=== PATIENT | female | born 1980 | race African-American/Black ===

== ENCOUNTER 2017-05-07 10:19 | Inpatient (IN) | payer OTHER ==
[2017-05-07 11:53] VITALS: BMI 35.2
--- NOTE | 2017-05-07 13:47 | HP ---
CIWA Score - CIWA Score Nausea/Vomitin-No Nausea/No Vomiting Muscle Tremors: 4-Moderate,w/Arms Extend Anxiety: 3 Agitation: 4-Moderately Restless Paroxysmal Sweats: 3 Orientation: 0-Oriented Tacttile Disturbances: 0-None Auditory Disturbances: 0-None Visual Disturbances: 0-None Headache: 1-Very Mild CIWA-Ar Total Score: 15 Admission ROS BHS - HPI Chief Complaint: I need help Allergies/Adverse Reactions: Allergies Allergy/AdvReac Type Severity Reaction Status Date / Time penicillin G Allergy Severe Difficulty Verified 05/07/17 12:55 Breathing History of Present Illness: pt is a 37yr old female with a history of alcohol dependence seeking detox for treatment. Exam Limitations: No Limitations - Ebola screening Have you traveled outside of the country in the last 21 days: No Have you had contact with anyone from an Ebola affected area: No Have you been sick,other than usual withdrawal symptoms: No Do you have a fever: No - Review of Systems Constitutional: Chills, Diaphoresis, Night Sweats, Changes in sleep EENT: reports: No Symptoms Reported Respiratory: reports: No Symptoms reported Cardiac: reports: No Symptoms Reported GI: reports: Constipated, Poor Appetite, Rectal Bleeding, Indigestion : reports: No Symptoms Reported Musculoskeletal: reports: Back Pain Integumentary: reports: Flushing, Sweating Neuro: reports: Headache, Seizure (seizure d/t her ), Tingling, Tremors Endocrine: reports: Excessive Sweating, Flushing, Intolerance to Cold, Intolerance to Heat Hematology: reports: No Symptoms Reported Psychiatric: reports: Mood/Affect Appropiate, Orientated x3, Agitated, Anxious Other Systems: Reviewed and Negative Patient History - Patient Medical History Hx Anemia: No Hx Asthma: Yes Hx Chronic Obstructive Pulmonary Disease (COPD): No Hx Cancer: Yes (breast CA in remission a year ago) Hx Cardiac Disorders: Yes (CHF) Hx Congestive Heart Failure: No Hx Hypertension: Yes Hx Hypercholesterolemia: No Hx Pacemaker: No HX Cerebrovascular Accident: No Hx Seizures: No Hx Diabetes: No Hx Gastrointestinal Disorders: No Hx Liver Disease: No Hx Genitourinary Disorders: No Hx Sexually Transmitted Disorders: No Hx Renal Disease (ESRD): No Hx Thyroid Disease: No Hx Human Immunodeficiency Virus (HIV): No (negative) Hx Hepatitis C: No (negative) Hx Depression: No Hx Suicide Attempt: No Hx Bipolar Disorder: No Hx Schizophrenia: No - Patient Surgical History Past Surgical History: Yes Hx Neurologic Surgery: No Hx Cataract Extraction: No Hx Cardiac Surgery: No Hx Lung Surgery: No Hx Breast Surgery: No Hx Breast Biopsy: No Hx Abdominal Surgery: Yes (gastric bypass in 2014/umbilical hernia repair in 2005) Hx Appendectomy: No Hx Cholecystectomy: No Hx Genitourinary Surgery: No Hx Section: Yes (x2) Hx Orthopedic Surgery: No Anesthesia Reaction: No - PPD History Previous Implant?: Yes Documented Results: Negative w/o proof PPD to be Administered?: Yes - Reproductive History Patient is a Female of Child Bearing Age (11 -55 yrs old): Yes Last Menstrual Period: 08/21/13 Patient : No - Smoking Cessation Smoking history: Current every day smoker Have you smoked in the past 12 months: No Aproximately how many cigarettes per day: 3 Hx Chewing Tobacco Use: No Initiated information on smoking cessation: Yes 'Breaking Loose' booklet given: 05/07/17 - Substance & Tx. History Hx Alcohol Use: Yes Hx Substance Use: Yes Substance Use Type: Alcohol, Cocaine, Marijuana Hx Substance Use Treatment: No - Substances Abused Cocaine Route: Inhalation Frequency: Daily Amount used: 1 gm. Age of first use: 37 Date of Last Use: 05/06/17 Alcohol-beer Route: Oral Frequency: Daily Amount used: 4-5 6 pks. Age of first use: 24 Date of Last Use: 05/07/17 Marijuana Route: Smoking Frequency: 1-2 times per week Amount used: 2 joints Age of first use: 36 Date of Last Use: 05/06/17 Family Disease History - Family Disease History Family History: Denies Admission Physical Exam [facility] - Vital Signs Vital Signs: Vital Signs - 24 hr 05/07/17 11:50 Temperature 96 F L Pulse Rate 99 H Respiratory 20 Rate Blood Pressure 115/82 - Physical General Appearance: Yes: Moderate Distress, Obese, Tremorous, Irritable, Sweating, Anxious HEENTM: Yes: Normal Voice Respiratory: Yes: Lungs Clear, Normal Breath Sounds, No Respiratory Distress Neck: Yes: No masses,lesions,Nodules Breast: Yes: Within Normal Limits Cardiology: Yes: Regular Rhythm, Regular Rate, S1, S2 Abdominal: Yes: Normal Bowel Sounds, Non Tender Genitourinary: Yes: Within Normal Limits Back: Yes: Normal Inspection Musculoskeletal: Yes: Back pain Extremities: Yes: Normal Inspection, Tremors Neurological: Yes: Fully Oriented, Alert, Normal Response Integumentary: Yes: Normal Color, Diaphoresis Lymphatic: Yes: Within Normal Limits - Diagnostic (1) Alcohol dependence with uncomplicated withdrawal Current Visit: Yes Status: Chronic (2) Asthma Current Visit: Yes Status: Chronic Qualifiers: Asthma severity: mild intermittent (3) Cannabis dependence Current Visit: Yes Status: Chronic (4) Cocaine dependence Current Visit: Yes Status: Chronic Qualifiers: Substance use status: uncomplicated Qualified Code(s): F14.20 - Cocaine dependence, uncomplicated (5) Nicotine dependence Current Visit: Yes Status: Chronic Qualifiers: Nicotine product type: cigarettes Substance use status: uncomplicated Qualified Code(s): F17.210 - Nicotine dependence, cigarettes, uncomplicated (6) Obesity (BMI 30.0-34.9) Current Visit: Yes Status: Chronic (7) CHF (congestive heart failure) Current Visit: Yes Status: Chronic Qualifiers: Congestive heart failure chronicity: chronic Cleared for Admission [facility] - Detox or Rehab [facility] Level of Care: Medically Managed Detox Regimen/Protocol: Librium [facility] Breath Alcohol Content Breath Alcohol Content: 0.124 Urine Pregancy Test - Result Urine Test Results: Negative- NO Line Present Urine Drug Screen - Results Drug Screen Negative: No Urine Drug Screen Results: OZZIE-Cocaine
[2017-05-07] MEDS ORDERED: ACETAMINOPHEN 325 MG TABLET (FP) PO PRN (13:51)
[2017-05-07] MEDS ORDERED: MAGNESIUM CITRATE 300 ML BOTTLE PO PRN (13:51)
[2017-05-07] MEDS ORDERED: chlordiazePOXIDE HCL 25 MG CAPSULE PO PRN (13:51)
[2017-05-07] MEDS ORDERED: LOPERAMIDE HCL 2 MG CAPSULE PO PRN (13:51)
[2017-05-07] MEDS ORDERED: MAGNESIUM HYDROX 2400MG/30ML ORAL SUSPENSION 30 ML CUP PO PRN (13:51)
[2017-05-07] MEDS ORDERED: P-EPHED 60MG/TRIPROLIDI 2.5MG TABLET PO PRN (13:51)
[2017-05-07] MEDS ORDERED: MENTHOL/PHENOL 1 EACH UD MM PRN (13:51)
[2017-05-07] MEDS ORDERED: guaiFENesin/D-METHORPHAN HB 10 ML UNIT-DOSE CUPS PO PRN (13:51)
[2017-05-07] MEDS ORDERED: diphenhydrAMINE HCL 50 MG CAPSULE PO PRN (13:51)
[2017-05-07] MEDS ORDERED: MAG HYDROX/AL HYDROX/SIMETH 30 ML UNIT-DOSE CUP PO PRN (13:51)
[2017-05-07] MEDS ORDERED: chlordiazePOXIDE HCL 25 MG CAPSULE PO ONE (14:30)
[2017-05-07] MEDS: chlordiazePOXIDE HCL 25 MG CAPSULE PO SCH ×2 (17:22→22:10)
[2017-05-07 17:27] LABS: MCHC 29.7 g/dl (32.0-36.0); MEAN CELL VOLUME 64.4 fl (80-96); MEAN PLT VOLUME 8.7 fl (7.5-11.1); PLATELET COUNT 338 K/MM3 (134-434); RDW 21.7 % (11.6-15.6); WHITE BLOOD COUNT 13.8 K/mm3 (4.0-10.0)
[2017-05-07 17:28] LABS: URINE APPEARANCE CLEAR; URINE BILIRUBIN NEGATIVE (NEGATIVE); URINE BLOOD NEGATIVE (NEGATIVE); URINE COLOR COLORLESS; URINE GLUCOSE (UA) NEGATIVE (NEGATIVE); URINE KETONE NEGATIVE (NEGATIVE); URINE LEUK ESTERASE NEGATIVE (NEGATIVE); URINE NITRITE NEGATIVE (NEGATIVE); URINE PROTEIN NEGATIVE (NEGATIVE); URINE UROBILINOGEN NEGATIVE mg/dL (0.2-1.0)
[2017-05-07 17:29] LABS: MCH 19.2 pg (25.7-33.7)
[2017-05-07] MEDS: IBUPROFEN 400 MG TABLET (FP) PO PRN (17:29)
[2017-05-07 17:59] LABS: ALBUMIN 3.7 g/dl (3.4-5.0); ALK PHOS 76 U/L (45-117); ANION GAP 9 (8-16); BILIRUBIN,TOTAL 0.5 mg/dL (0.2-1.0); CALCIUM 8.7 mg/dL (8.5-10.1); CO2 24 mmol/L (21-32); CREATININE 0.9 mg/dL (0.55-1.02); GLUCOSE,RANDOM 65 mg/dL (74-106); SGOT/AST 32 U/L (15-37); SGPT/ALT 27 U/L (12-78); TOT PROT 7.8 g/dl (6.4-8.2)
[2017-05-07] MEDS: NICOTINE POLACRILEX 4 MG GUM BC PRN (18:30)
[2017-05-07 21:41] LABS: ANISOCYTOSIS 1+; HYPOCHROMIA 3+; MICROCYTOSIS 2+; PLATELET ESTIMATE ADEQUATE (NORMAL); POLYCHROMASIA 1+
[2017-05-07] MEDS: THIAMINE HCL 100 MG TABLET (FP) PO SCH (22:09)
[2017-05-08] MEDS: chlordiazePOXIDE HCL 25 MG CAPSULE PO SCH ×4 (05:55→22:09)
--- NOTE | 2017-05-08 09:44 | PN ---
S CIWA - CIWA Score Nausea/Vomitin-No Nausea/No Vomiting Muscle Tremors: 4-Moderate,w/Arms Extend Anxiety: 3 Agitation: 4-Moderately Restless Paroxysmal Sweats: 3 Orientation: 0-Oriented Tacttile Disturbances: 0-None Auditory Disturbances: 0-None Visual Disturbances: 0-None Headache: 0-None Present CIWA-Ar Total Score: 14 BHS Progress Note (SOAP) Subjective: agitation sweats irritable interrupted sleep feet swelling Objective: 05/08/17 09:40 Vital Signs Temperature 97.1 F L 05/08/17 06:43 Pulse Rate 70 05/08/17 06:43 Respiratory Rate 18 05/08/17 06:43 Blood Pressure 131/61 05/08/17 06:43 O2 Sat by Pulse Oximetry (%) Laboratory Tests 05/07/17 05/07/17 05/07/17 13:00 13:00 15:00 WBC 13.8 H D RBC 3.92 Hgb 7.5 L Hct 25.3 L MCV 64.4 L MCH 19.2 L MCHC 29.7 L RDW 21.7 H Plt Count 338 D MPV 8.7 Differential Comment Slide scanned Hypochromia 3+ Platelet Estimate Adequate Polychromasia 1+ Anisocytosis 1+ Microcytosis 2+ Sodium 141 Potassium 4.1 Chloride 108 H Carbon Dioxide 24 Anion Gap 9 BUN 7 Creatinine 0.9 Creat Clearance w eGFR > 60 Random Glucose 65 L D Calcium 8.7 Total Bilirubin 0.5 D AST 32 D ALT 27 D Alkaline Phosphatase 76 Total Protein 7.8 Albumin 3.7 Urine Color Colorless Urine Appearance Clear Urine pH 6.0 Ur Specific [place] <= 1.005 Urine Protein Negative Urine Glucose (UA) Negative Urine Ketones Negative Urine Blood Negative Urine Nitrite Negative Urine Bilirubin Negative Urine Urobilinogen Negative Ur Leukocyte Esterase Negative low H:H; iron supplement ordered TID awake/alert ambulating no acute distress Assessment: 05/08/17 09:42 withdrawal sx Plan: continue detox lasix 40mg bid encouraged to keep legs elevated monitor fluid intake
[2017-05-08] MEDS ORDERED: FERROUS SO4 325 MG TABLET (FP) PO SCH (10:00)
--- NOTE | 2017-05-08 10:12 | CONSULT ---
[facility] Psychiatric Consult - Data Date of interview: 05/08/17 Admission source: [facility] Identifying data: [place] 37 years old female with no psychiatric hospitalization history, intoxicated with: Alcohol, Cannabis, Cocaine and Nicotine Substance Abuse History: Smoking history: Current every day smoker. Have you smoked in the past 12 months: No. Aproximately how many cigarettes per day: 3. Hx Chewing Tobacco Use: No. Initiated information on smoking cessation: Yes. 'Breaking Loose' booklet given: 05/07/17. - Substance & Tx. History. Hx Alcohol Use: Yes. Hx Substance Use: Yes. Substance Use Type: Alcohol, Cocaine , Marijuana. Hx Substance Use Treatment: No. - Substances Abused. Cocaine. Route: Inhalation. Frequency: Daily. Amount used: 1 gm. Age of first use: 37. Date of Last Use: 05/06/17. Alcohol-beer. Route: Oral. Frequency: Daily. Amount used: 4-5 6 pks. Age of first use: 24. Date of Last Use: 05/07/17. Marijuana. Route: Smoking. Frequency: 1-2 times per week. Amount used: 2 joints. Age of first use: 36. Date of Last Use: 05/06/17 Medical History: CHF History, Obesity Psychiatric History: -Patient reports ijnsomnia, reports taking prior to admsision: Ambien 10mg po qhs Physical/Sexual Abuse/Trauma History: Denies Additional Comment: Ambien 10mg po qhs Mental Status Exam - Mental Status Exam Alert and Oriented to: Person Cognitive Function: Fair Patient Appearance: Unkempt Mood: Anxious Affect: Mood Congruent Patient Behavior: Cooperative Speech Pattern: Delayed Voice Loudness: Mildly Soft/Quiet Thought Process: Goal Oriented Thought Disorder: Being Controlled Hallucinations: Denies Suicidal Ideation: Denies Homicidal Ideation: Denies Insight/Judgement: Fair Sleep: Difficulty falling asleep Appetite: Fair Muscle strength/Tone: Mild Hypotonicity Gait/Station: Shuffling Additional Comments: Ambien 10mg po qhs Psychiatric Findings - Problem List ([place] 1, 2,3) (1) Alcohol dependence with uncomplicated withdrawal Current Visit: Yes Status: Chronic (2) Cannabis dependence Current Visit: Yes Status: Chronic (3) Cocaine dependence Current Visit: Yes Status: Chronic Qualifiers: Substance use status: uncomplicated Qualified Code(s): F14.20 - Cocaine dependence, uncomplicated (4) Nicotine dependence Current Visit: Yes Status: Chronic Qualifiers: Nicotine product type: cigarettes Substance use status: uncomplicated Qualified Code(s): F17.210 - Nicotine dependence, cigarettes, uncomplicated (5) Drug-induced mood disorder Current Visit: Yes Status: Suspected - Initial Treatment Plan Initial Treatment Plan: Ambien 10mg po qhs
[2017-05-08] MEDS: PRENATAL VITAMINS W/ FOLIC ACID TABLET (FP) PO SCH (10:24)
[2017-05-08] MEDS: FUROSEMIDE 40 MG TABLET (FP) PO SCH ×2 (10:26→22:08)
[2017-05-08] MEDS: BACITRACIN 0.9 GM PACKET TP SCH ×2 (10:26→22:08)
[2017-05-08] MEDS: DOCUSATE SODIUM 100 MG CAPSULE (FP) PO SCH ×2 (10:26→22:08)
[2017-05-08] MEDS: NICOTINE 14 MG/24 HOURS TOPICAL PATCH TD SCH (10:27)
--- NOTE | 2017-05-08 11:06 | PN ---
S CIWA - CIWA Score Nausea/Vomitin-Mild Nausea/No Vomiting Muscle Tremors: 4-Moderate,w/Arms Extend Anxiety: 3 Agitation: 4-Moderately Restless Paroxysmal Sweats: 3 Orientation: 0-Oriented Tacttile Disturbances: 0-None Auditory Disturbances: 0-None Visual Disturbances: 0-None Headache: 1-Very Mild CIWA-Ar Total Score: 16 BHS Progress Note (SOAP) Subjective: nausea sweats interrupted sleep agitation body aches Objective: 05/08/17 11:06 Vital Signs Temperature 97.7 F 05/08/17 10:14 Pulse Rate 66 05/08/17 10:14 Respiratory Rate 20 05/08/17 10:14 Blood Pressure 110/66 05/08/17 10:14 O2 Sat by Pulse Oximetry (%) Laboratory Tests 05/07/17 05/07/17 05/07/17 13:00 13:00 15:00 WBC 13.8 H D RBC 3.92 Hgb 7.5 L Hct 25.3 L MCV 64.4 L MCH 19.2 L MCHC 29.7 L RDW 21.7 H Plt Count 338 D MPV 8.7 Differential Comment Slide scanned Hypochromia 3+ Platelet Estimate Adequate Polychromasia 1+ Anisocytosis 1+ Microcytosis 2+ Sodium 141 Potassium 4.1 Chloride 108 H Carbon Dioxide 24 Anion Gap 9 BUN 7 Creatinine 0.9 Creat Clearance w eGFR > 60 Random Glucose 65 L D Calcium 8.7 Total Bilirubin 0.5 D AST 32 D ALT 27 D Alkaline Phosphatase 76 Total Protein 7.8 Albumin 3.7 Urine Color Colorless Urine Appearance Clear Urine pH 6.0 Ur Specific [place] <= 1.005 Urine Protein Negative Urine Glucose (UA) Negative Urine Ketones Negative Urine Blood Negative Urine Nitrite Negative Urine Bilirubin Negative Urine Urobilinogen Negative Ur Leukocyte Esterase Negative low
[2017-05-08] MEDS: NICOTINE POLACRILEX 4 MG GUM BC PRN (12:35)
--- NOTE | 2017-05-08 12:43 | EKG ---
Test Reason : Blood Pressure : / mmHG Vent. Rate : 081 BPM Atrial Rate : 081 BPM P-R Int : 142 ms QRS Dur : 110 ms QT Int : 374 ms P-R-T Axes : 048 013 030 degrees QTc Int : 434 ms NORMAL SINUS RHYTHM INCOMPLETE RIGHT BUNDLE BRANCH BLOCK BORDERLINE ECG WHEN COMPARED WITH ECG OF 08-OCT-2015 10:51, NO SIGNIFICANT CHANGE WAS FOUND Confirmed by ERASTO ZENDEJAS MD ([id number]) on 05/08/2017 12:42:54 PM Referred By: Omari Chowdhury Confirmed By:ERASTO ZENDEJAS MD
[2017-05-08] MEDS: BUDESONIDE/FORMETEROL FUMARATE 160/4.5 mcg INHALER IH SCH ×2 (13:59→22:09)
[2017-05-08] MEDS: IBUPROFEN 400 MG TABLET (FP) PO PRN ×2 (14:09→22:12)
[2017-05-08] MEDS ORDERED: chlordiazePOXIDE HCL 25 MG CAPSULE PO SCH (17:00)
[2017-05-08] MEDS: FERROUS SO4 325 MG TABLET (FP) PO SCH (17:25)
[2017-05-08] MEDS: chlordiazePOXIDE HCL 25 MG CAPSULE PO PRN (17:32)
[2017-05-08] MEDS: NICOTINE POLACRILEX 2 MG GUM BUC PRN (18:03)
[2017-05-08] MEDS: ALBUTEROL SO4 6.7 GM HFA INHALER IH PRN (21:11)
[2017-05-08] MEDS: THIAMINE HCL 100 MG TABLET (FP) PO SCH (22:09)
[2017-05-09] MEDS: hydrOXYzine PAMOATE 50 MG CAPSULE (FP) PO PRN ×3 (03:21→20:34)
[2017-05-09] MEDS: chlordiazePOXIDE HCL 25 MG CAPSULE PO SCH ×2 (06:42→11:35)
[2017-05-09] MEDS: IBUPROFEN 400 MG TABLET (FP) PO PRN ×2 (06:44→20:34)
[2017-05-09] MEDS: FERROUS SO4 325 MG TABLET (FP) PO SCH ×2 (07:00→16:49)
[2017-05-09] MEDS: chlordiazePOXIDE HCL 25 MG CAPSULE PO PRN (09:47)
[2017-05-09] MEDS: FUROSEMIDE 40 MG TABLET (FP) PO SCH ×2 (09:48→22:13)
[2017-05-09] MEDS: BUDESONIDE/FORMETEROL FUMARATE 160/4.5 mcg INHALER IH SCH ×2 (09:48→22:14)
[2017-05-09] MEDS: DOCUSATE SODIUM 100 MG CAPSULE (FP) PO SCH ×2 (09:48→22:13)
[2017-05-09] MEDS: PRENATAL VITAMINS W/ FOLIC ACID TABLET (FP) PO SCH (09:48)
[2017-05-09] MEDS: BACITRACIN 0.9 GM PACKET TP SCH ×2 (09:51→22:13)
[2017-05-09] MEDS: NICOTINE POLACRILEX 2 MG GUM BUC PRN ×3 (09:52→20:36)
[2017-05-09] MEDS: NICOTINE 14 MG/24 HOURS TOPICAL PATCH TD SCH (09:52)
--- NOTE | 2017-05-09 10:37 | PN ---
BHS Progress Note (SOAP) Subjective: teary eyes sweats interrupted sleep Objective: 05/09/17 10:36 Vital Signs Temperature 102 F H 05/08/17 22:00 Pulse Rate 81 05/09/17 09:40 Respiratory Rate 20 05/09/17 09:40 Blood Pressure 110/72 05/09/17 09:40 O2 Sat by Pulse Oximetry (%) awake/alert ambulating no acute distress Assessment: 05/09/17 10:36 withdrawal sx Plan: continue detox increase fluids
[2017-05-09] MEDS: chlordiazePOXIDE 5 MG CAPSULE PO SCH ×2 (16:49→22:13)
[2017-05-09] MEDS ORDERED: chlordiazePOXIDE 5 MG CAPSULE PO SCH (17:00)
[2017-05-09] MEDS: ALBUTEROL SO4 6.7 GM HFA INHALER IH PRN (22:14)
[2017-05-09] MEDS: THIAMINE HCL 100 MG TABLET (FP) PO SCH (22:14)
[2017-05-10] MEDS: IBUPROFEN 400 MG TABLET (FP) PO PRN (03:19)
[2017-05-10] MEDS: hydrOXYzine PAMOATE 50 MG CAPSULE (FP) PO PRN (03:19)
[2017-05-10] MEDS ORDERED: CYCLOBENZAPRINE HCL 10 MG TABLET (FP) PO PRN (03:23)
[2017-05-10] MEDS: chlordiazePOXIDE 5 MG CAPSULE PO SCH ×2 (07:53→11:06)
[2017-05-10] MEDS: FERROUS SO4 325 MG TABLET (FP) PO SCH (08:26)
--- NOTE | 2017-05-10 09:08 | DS ---
[facility] Detox Discharge Summary Admission Date: 05/07/17 Discharge Date: 05/10/17 - History Present History: Alcohol Dependence, Cannabis Dependence, Cocaine Dependence - Physical Exam Results Vital Signs: Vital Signs Temperature 97.5 F L 05/10/17 06:00 Pulse Rate 75 05/10/17 06:00 Respiratory Rate 18 05/10/17 06:00 Blood Pressure 102/42 05/10/17 06:00 O2 Sat by Pulse Oximetry (%) - Treatment Hospital Course: Detox Protocol Followed, Detoxed Safely, Responded well, Discharged Condition Good, Rehab Referral Accepted - Medication Discharge Medications: Ambulatory Orders Docusate Sodium [Colace -] 100 mg PO BID 11/30/14 Ferrous Sulfate [Feosol] 325 mg PO BID 11/30/14 Furosemide [Lasix -] 40 mg PO BID 11/30/14 Fluticasone/Salmeterol [Advair 250-50 Diskus] 1 each IH BID 02/22/16 Zolpidem Tartrate [Ambien] 10 mg PO HS 02/22/16 Albuterol Sulfate Inhaler - [Ventolin Hfa Inhaler -] 2 inh PO Q4H PRN 05/07/17 - Diagnosis (1) Alcohol dependence with uncomplicated withdrawal Current Visit: Yes Status: Chronic (2) Asthma Current Visit: Yes Status: Chronic Qualifiers: Asthma severity: mild intermittent (3) Cannabis dependence Current Visit: Yes Status: Chronic (4) Cocaine dependence Current Visit: Yes Status: Chronic Qualifiers: Substance use status: uncomplicated Qualified Code(s): F14.20 - Cocaine dependence, uncomplicated (5) Nicotine dependence Current Visit: Yes Status: Chronic Qualifiers: Nicotine product type: cigarettes Substance use status: uncomplicated Qualified Code(s): F17.210 - Nicotine dependence, cigarettes, uncomplicated (6) Obesity (BMI 30.0-34.9) Current Visit: Yes Status: Chronic (7) CHF (congestive heart failure) Current Visit: Yes Status: Chronic Qualifiers: Congestive heart failure chronicity: chronic (8) H/O gastric bypass Current Visit: No Status: Chronic - AMA Did Patient Leave Against Medical Advice: No (pt states will return for rehab for further tx. going to court today)
[2017-05-10 10:39] VITALS: BP 117/60; PULSE 83; TEMP 97.2
[2017-05-10] MEDS: BUDESONIDE/FORMETEROL FUMARATE 160/4.5 mcg INHALER IH SCH (11:05)
[2017-05-10] MEDS: BACITRACIN 0.9 GM PACKET TP SCH (11:05)
[2017-05-10] MEDS: NICOTINE 14 MG/24 HOURS TOPICAL PATCH TD SCH (11:05)
[2017-05-10] MEDS: DOCUSATE SODIUM 100 MG CAPSULE (FP) PO SCH (11:05)
[2017-05-10] MEDS: PRENATAL VITAMINS W/ FOLIC ACID TABLET (FP) PO SCH (11:05)
[2017-05-10] MEDS: FUROSEMIDE 40 MG TABLET (FP) PO SCH (11:05)
[2017-05-10] MEDS ORDERED: chlordiazePOXIDE HCL 10 MG CAPSULE PO SCH ×2 (17:00)
== END 2017-05-10 10:03 | disposition home or self-care (01) | DRG 774 ==
LOC: YASAS 10:19 → Y6N 14:01
PROVIDERS: ADMIT Internal Medicine Addiction Medicine; ATTEND Internal Medicine Addiction Medicine
PROC: HZ2ZZZZ Detoxification Services for Substance Abuse Treatment (ICD-10-PCS; principal; 2017-05-10)
DX: F10.230 Alcohol dependence with withdrawal, uncomplicated (principal); F14.20 Cocaine dependence, uncomplicated; F12.20 Cannabis dependence, uncomplicated; F17.210 Nicotine dependence, cigarettes, uncomplicated; F19.24 Other psychoactive substance dependence with psychoactive substance-induced mood disorder; I50.9 Heart failure, unspecified; I10 Essential (primary) hypertension; J45.909 Unspecified asthma, uncomplicated; E66.09 Other obesity due to excess calories; Z68.35 Body mass index [BMI] 35.0-35.9, adult; Z98.84 Bariatric surgery status; Z85.3 Personal history of malignant neoplasm of breast
CPT/HCPCS: 36415; 80053; 81003; 85027; 86593; 93005; 93010

== ENCOUNTER 2017-05-28 15:00 | Inpatient (IN) | payer OTHER ==
[2017-05-28 19:01] VITALS: BMI 33.9
--- NOTE | 2017-05-28 19:33 | HP ---
Admission [facility] Chief Complaint: I WANT TO GO TO REHAB Allergies/Adverse Reactions: Allergies Allergy/AdvReac Type Severity Reaction Status Date / Time penicillin G Allergy Severe Difficulty Verified 05/28/17 18:28 Breathing peanut Allergy Intermediate Difficulty Verified 05/28/17 18:28 Breathing peanut butter Allergy Intermediate Difficulty Uncoded 05/28/17 18:28 Breathing History of Present Illness: 37 YEARS OLD FEMALE WITH LONG HISTORY OF COCAINE MARIJUANA NICOTINE DEPENDENCE HAS ASTHMA CHF AND DEPRESSION IS ADMITTED TO REHAB Exam Limitations: No Limitations - Ebola screening Have you traveled outside of the country in the last 21 days: No Have you had contact with anyone from an Ebola affected area: No Have you been sick,other than usual withdrawal symptoms: No Do you have a fever: No - Review of Systems Constitutional: Other (GASTRIC BY PASS 2014 LOST 295 LB) EENT: reports: Dental Problems (MULTIPLE TEETH MISSING) Respiratory: reports: No Symptoms reported Cardiac: reports: No Symptoms Reported GI: reports: No Symptoms Reported : reports: No Symptoms Reported Musculoskeletal: reports: Other (CERVICAL SPINE TO TAIL BONE) Integumentary: reports: No Symptoms Reported Neuro: reports: Seizure (01/2017 LAST EPISODE) Endocrine: reports: No Symptoms Reported Hematology: reports: No Symptoms Reported Psychiatric: reports: Judgement Intact, Orientated x3, Depressed Other Systems: Reviewed and Negative Patient History - Patient Medical History Hx Anemia: No Hx Asthma: Yes Hx Chronic Obstructive Pulmonary Disease (COPD): No Hx Cancer: Yes (breast CA in remission a year ago) Hx Cardiac Disorders: Yes (CHF) Hx Congestive Heart Failure: Yes Hx Hypertension: No (HISTORY) Hx Hypercholesterolemia: No Hx Pacemaker: No HX Cerebrovascular Accident: No Hx Seizures: Yes (01/2017 BLOOD PRESSURE RELATED) Hx Dementia: No Hx Diabetes: No Hx Gastrointestinal Disorders: No Hx Liver Disease: No Hx Genitourinary Disorders: No Hx Sexually Transmitted Disorders: No Hx Renal Disease (ESRD): No Hx Thyroid Disease: No Hx Human Immunodeficiency Virus (HIV): No (negative) Hx Hepatitis C: No (negative) Hx Depression: Yes Hx Suicide Attempt: No Hx Bipolar Disorder: No Hx Schizophrenia: No - Patient Surgical History Past Surgical History: Yes Hx Neurologic Surgery: No Hx Cataract Extraction: No Hx Cardiac Surgery: No Hx Lung Surgery: No Hx Breast Surgery: No Hx Breast Biopsy: No Hx Abdominal Surgery: Yes (gastric bypass in 2014/umbilical hernia repair in 2005) Hx Appendectomy: No Hx Cholecystectomy: No Hx Genitourinary Surgery: No Hx Section: Yes (x2 2014) Hx Orthopedic Surgery: No Hx Hysterectomy: No Anesthesia Reaction: No - PPD History Previous Implant?: Yes Implanted On Prior [facility] Admission?: Yes Date: 05/09/17 PPD to be Administered?: No - Reproductive History Patient is a Female of Child Bearing Age (11 -55 yrs old): Yes Last Menstrual Period: 05/28/14 Patient : No - Smoking Cessation Smoking history: Current every day smoker Have you smoked in the past 12 months: Yes Aproximately how many cigarettes per day: 80 Cigars Per Day: 0 Hx Chewing Tobacco Use: No Initiated information on smoking cessation: Yes 'Breaking Loose' booklet given: 05/28/17 - Substance & Tx. History Hx Alcohol Use: No Hx Substance Use: Yes Substance Use Type: Cocaine, Marijuana Hx Substance Use Treatment: Yes (05/07-05/10/17 [facility] - Substances Abused Cocaine Route: Inhalation Frequency: Daily Amount used: 40$ Age of first use: 36 Date of Last Use: 05/27/17 Marijuana/Hashish Route: Smoking Frequency: Daily Amount used: JOINT Age of first use: 19 Date of Last Use: 05/28/17 Family Disease History - Family Disease History Family Disease History: Diabetes: Mother, Heart Disease: Mother, Sister, CA: Father (), Other: Father Admission Physical Exam BHS - Vital Signs Vital Signs: Vital Signs - 24 hr 05/28/17 18:54 Temperature 98.7 F Pulse Rate 89 Respiratory 18 Rate Blood Pressure 132/71 - Physical General Appearance: Yes: No Apparent Distress, Appropriately Dressed, Obese HEENTM: Yes: Hearing grossly Normal, Normal ENT Inspection, Normocephalic, Normal Voice Respiratory: Yes: Chest Non-Tender, Lungs Clear, Normal Breath Sounds, No Respiratory Distress, No Accessory Muscle Use Neck: Yes: Supple, Trachea in good position Breast: Yes: Breasts Symetrical Cardiology: Yes: Regular Rhythm, Regular Rate, S1, S2 Abdominal: Yes: Normal Bowel Sounds, Non Tender, Soft, Other Genitourinary: Yes: Within Normal Limits Back: Yes: Normal Inspection Musculoskeletal: Yes: full range of Motion, Gait Steady, Back pain, Muscle Pain (SPINE) Extremities: Yes: Normal Inspection, Normal Range of Motion, Non-Tender Neurological: Yes: Fully Oriented, Alert, Motor Strength 5/5, Normal Response, Depressed Affect Integumentary: Yes: Warm Lymphatic: Yes: Within Normal Limits - Diagnostic (1) Asthma Current Visit: Yes Status: Chronic Qualifiers: Asthma severity: mild intermittent Asthma complication type: with status asthmaticus Qualified Code(s): J45.22 - Mild intermittent asthma with status asthmaticus (2) CHF (congestive heart failure) Current Visit: Yes Status: Chronic Qualifiers: Congestive heart failure type: systolic Congestive heart failure chronicity: chronic Qualified Code(s): I50.22 - Chronic systolic ( congestive) heart failure (3) H/O gastric bypass Current Visit: Yes Status: Resolved (4) Nicotine dependence Current Visit: Yes Status: Acute Qualifiers: Nicotine product type: cigarettes Substance use status: in withdrawal Qualified Code(s): F17.213 - Nicotine dependence, cigarettes, with withdrawal (5) Obesity (BMI 30.0-34.9) Current Visit: Yes Status: Chronic (6) Cocaine dependence, uncomplicated Current Visit: Yes Status: Chronic (7) Cannabis dependence, uncomplicated Current Visit: Yes Status: Chronic BHS Breath Alcohol Content Breath Alcohol Content: 0.124 Urine Pregancy Test - Result Urine Test Results: Negative- NO Line Present Urine Drug Screen - Results Drug Screen Negative: No Urine Drug Screen Results: THC-Marijuana, OZZIE-Cocaine, BZO-Benzodiazepines
[2017-05-28] MEDS ORDERED: LOPERAMIDE HCL 2 MG CAPSULE PO PRN (19:42)
[2017-05-28] MEDS ORDERED: MAGNESIUM CITRATE 300 ML BOTTLE PO PRN (19:42)
[2017-05-28] MEDS ORDERED: MAG HYDROX/AL HYDROX/SIMETH 30 ML UNIT-DOSE CUP PO PRN (19:42)
[2017-05-28] MEDS ORDERED: guaiFENesin/D-METHORPHAN HB 10 ML UNIT-DOSE CUPS PO PRN (19:42)
[2017-05-28] MEDS ORDERED: MAGNESIUM HYDROX 2400MG/30ML ORAL SUSPENSION 30 ML CUP PO PRN (19:42)
[2017-05-28] MEDS ORDERED: ACETAMINOPHEN 325 MG TABLET (FP) PO PRN (19:42)
[2017-05-28] MEDS ORDERED: IBUPROFEN 400 MG TABLET (FP) PO PRN (19:42)
[2017-05-28] MEDS ORDERED: MENTHOL/PHENOL 1 EACH UD MM PRN (19:42)
[2017-05-28] MEDS ORDERED: P-EPHED 60MG/TRIPROLIDI 2.5MG TABLET PO PRN (19:42)
[2017-05-28] MEDS ORDERED: ALBUTEROL SO4 18 GM HFA INHALER IH PRN (19:43)
[2017-05-28] MEDS ORDERED: ALBUTEROL SO4 2.5/IPRATROPIUM 0.5 INH SOL 3 ML VIAL.NEB. NEB PRN (19:44)
[2017-05-28] MEDS ORDERED: DOCUSATE SODIUM 100 MG CAPSULE (FP) PO PRN (19:45)
--- NOTE | 2017-05-28 20:01 | HP ---
Admission ROS [facility] Allergies/Adverse Reactions: Allergies Allergy/AdvReac Type Severity Reaction Status Date / Time penicillin G Allergy Severe Difficulty Verified 05/28/17 18:28 Breathing peanut Allergy Intermediate Difficulty Verified 05/28/17 18:28 Breathing peanut butter Allergy Intermediate Difficulty Uncoded 05/28/17 18:28 Breathing - Ebola screening Have you traveled outside of the country in the last 21 days: No Have you had contact with anyone from an Ebola affected area: No Have you been sick,other than usual withdrawal symptoms: No Do you have a fever: No Patient History - Patient Medical History Hx Anemia: No Hx Asthma: Yes Hx Chronic Obstructive Pulmonary Disease (COPD): No Hx Cancer: Yes (breast CA in remission a year ago) Hx Cardiac Disorders: Yes (CHF) Hx Congestive Heart Failure: Yes Hx Hypertension: No (HISTORY) Hx Hypercholesterolemia: No Hx Pacemaker: No HX Cerebrovascular Accident: No Hx Seizures: Yes (01/2017 BLOOD PRESSURE RELATED) Hx Dementia: No Hx Diabetes: No Hx Gastrointestinal Disorders: No Hx Liver Disease: No Hx Genitourinary Disorders: No Hx Sexually Transmitted Disorders: No Hx Renal Disease (ESRD): No Hx Thyroid Disease: No Hx Human Immunodeficiency Virus (HIV): No (negative) Hx Hepatitis C: No (negative) Hx Depression: Yes Hx Suicide Attempt: No Hx Bipolar Disorder: No Hx Schizophrenia: No - Patient Surgical History Past Surgical History: Yes Hx Neurologic Surgery: No Hx Cataract Extraction: No Hx Cardiac Surgery: No Hx Lung Surgery: No Hx Breast Surgery: No Hx Breast Biopsy: No Hx Abdominal Surgery: Yes (gastric bypass in 2014/umbilical hernia repair in 2005) Hx Appendectomy: No Hx Cholecystectomy: No Hx Genitourinary Surgery: No Hx Section: Yes (x2 2014) Hx Orthopedic Surgery: No Hx Hysterectomy: No Anesthesia Reaction: No - PPD History Previous Implant?: Yes Implanted On Prior [facility] Admission?: Yes Date: 05/09/17 - Reproductive History Last Menstrual Period: 05/28/14 Patient : No - Smoking Cessation Smoking history: Current every day smoker Have you smoked in the past 12 months: Yes Aproximately how many cigarettes per day: 80 Cigars Per Day: 0 Hx Chewing Tobacco Use: No Initiated information on smoking cessation: Yes 'Breaking Loose' booklet given: 05/28/17 - Substances Abused Cocaine Route: Inhalation Frequency: Daily Amount used: 40$ Age of first use: 36 Date of Last Use: 05/27/17 Marijuana/Hashish Route: Smoking Frequency: Daily Amount used: JOINT Age of first use: 19 Date of Last Use: 05/28/17 Family Disease History - Family Disease History Family Disease History: Diabetes: Mother, Heart Disease: Mother, Sister, CA: Father (), Other: Father Admission Physical Exam BHS - Vital Signs Vital Signs: Vital Signs - 24 hr 05/28/17 18:54 Temperature 98.7 F Pulse Rate 89 Respiratory 18 Rate Blood Pressure 132/71 - Diagnostic (1) Asthma Current Visit: Yes Status: Chronic Qualifiers: Asthma severity: mild intermittent Asthma complication type: with status asthmaticus Qualified Code(s): J45.22 - Mild intermittent asthma with status asthmaticus (2) CHF (congestive heart failure) Current Visit: Yes Status: Chronic Qualifiers: Congestive heart failure type: systolic Congestive heart failure chronicity: chronic Qualified Code(s): I50.22 - Chronic systolic ( congestive) heart failure (3) H/O gastric bypass Current Visit: Yes Status: Resolved (4) Nicotine dependence Current Visit: Yes Status: Acute Qualifiers: Nicotine product type: cigarettes Substance use status: in withdrawal Qualified Code(s): F17.213 - Nicotine dependence, cigarettes, with withdrawal (5) Obesity (BMI 30.0-34.9) Current Visit: Yes Status: Chronic (6) Cocaine dependence, uncomplicated Current Visit: Yes Status: Chronic (7) Cannabis dependence, uncomplicated Current Visit: Yes Status: Chronic BHS Breath Alcohol Content Breath Alcohol Content: 0.124 Urine Pregancy Test - Result Urine Test Results: Negative- NO Line Present Urine Drug Screen - Results Drug Screen Negative: No Urine Drug Screen Results: THC-Marijuana, OZZIE-Cocaine, BZO-Benzodiazepines Inpatient Rehab Admission - Initial Determination Are CD services needed?: Yes Free of communicable disease: Yes Not in need of hospitalization: Yes - Rehab Admission Criteria Previous failed treatment: Yes Poor recovery environment: Yes Comorbidities: Yes Lacks judgement: No Patient is meeting Inpatient Rehab admission criteria:: Yes
[2017-05-28] MEDS: diphenhydrAMINE HCL 50 MG CAPSULE PO PRN (22:50)
[2017-05-28] MEDS: BUDESONIDE/FORMETEROL FUMARATE 80/4.5 mcg INHALER IH SCH (22:50)
[2017-05-28] MEDS: THIAMINE HCL 100 MG TABLET (FP) PO SCH (22:52)
[2017-05-28] MEDS: NICOTINE POLACRILEX 4 MG GUM BUC PRN (22:53)
[2017-05-28 23:21] LABS: URINE APPEARANCE SLCLOUDY; URINE BILIRUBIN NEGATIVE (NEGATIVE); URINE BLOOD NEGATIVE (NEGATIVE); URINE COLOR AMBER; URINE GLUCOSE (UA) NEGATIVE (NEGATIVE); URINE KETONE NEGATIVE (NEGATIVE); URINE LEUK ESTERASE NEGATIVE (NEGATIVE); URINE NITRITE NEGATIVE (NEGATIVE); URINE PROTEIN NEGATIVE (NEGATIVE); URINE UROBILINOGEN 4.0 E.U/dl mg/dL (0.2-1.0)
[2017-05-29] MEDS: FUROSEMIDE 40 MG TABLET (FP) PO SCH ×2 (06:34→13:46)
[2017-05-29] MEDS: NICOTINE POLACRILEX 4 MG GUM BUC PRN (06:35)
[2017-05-29] MEDS ORDERED: PT OWN MED DRAWER 7, Y5N ONE ×2 (08:52→10:18)
[2017-05-29] MEDS: NICOTINE 21 MG/24 HOURS TOPICAL PATCH TD SCH (10:19)
[2017-05-29] MEDS: PRENATAL VITAMINS W/ FOLIC ACID TABLET (FP) PO SCH (10:20)
[2017-05-29] MEDS: BUDESONIDE/FORMETEROL FUMARATE 80/4.5 mcg INHALER IH SCH ×2 (10:20→21:38)
--- NOTE | 2017-05-29 10:32 | EKG ---
Test Reason : Blood Pressure : / mmHG Vent. Rate : 080 BPM Atrial Rate : 080 BPM P-R Int : 152 ms QRS Dur : 116 ms QT Int : 390 ms P-R-T Axes : 051 018 046 degrees QTc Int : 449 ms NORMAL SINUS RHYTHM NORMAL ECG WHEN COMPARED WITH ECG OF 07-MAY-2017 14:43, INCOMPLETE RIGHT BUNDLE BRANCH BLOCK IS NO LONGER PRESENT Confirmed by CRISTAINA OCASIO, ERASTO ([id number]) on 05/29/2017 10:31:36 AM Referred By: Confirmed By:ERASTO ZENDEJAS MD
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
[2017-05-29] MEDS: SERTRALINE HCL 50 MG TABLET (FP) PO SCH (13:46)
[2017-05-29] MEDS ORDERED: IBUPROFEN 400 MG TABLET (FP) PO PRN (14:33)
--- NOTE | 2017-05-29 14:36 | PN ---
[facility] Progress [facility] Note: C/O low back pain x 7 yrs., was on oxycodone in the past. Vital Signs - 8 hr 05/29/17 05/29/17 07:16 13:45 Temperature 97.8 F Pulse Rate 59 L 56 L Respiratory 18 Rate Blood Pressure 116/74 136/88 Laboratory Tests 05/28/17 22:28 Urine Color [place] Urine Appearance Slcloudy Urine pH 5.0 Ur Specific [place] >= 1.030 H Urine Protein Negative Urine Glucose (UA) Negative Urine Ketones Negative Urine Blood Negative Urine Nitrite Negative Urine Bilirubin Negative Urine Urobilinogen 4.0 e.u/dl H P : motrin 800mg flexeril 5mg tid lidoderm patch analgesic balm
[2017-05-29] MEDS ORDERED: CYCLOBENZAPRINE HCL 10 MG TABLET (FP) PO SCH (14:45)
[2017-05-29] MEDS: LIDOCAINE 5% TOPICAL PATCH TP SCH (15:11)
[2017-05-29] MEDS: CYCLOBENZAPRINE HCL 5 MG TABLET PO SCH ×2 (15:11→21:37)
[2017-05-29] MEDS: hydrOXYzine PAMOATE 50 MG CAPSULE (FP) PO PRN (16:29)
[2017-05-29] MEDS: THIAMINE HCL 100 MG TABLET (FP) PO SCH (21:37)
[2017-05-29] MEDS: LIDOCAINE PATCH REMOVAL MC SCH (21:38)
[2017-05-29] MEDS: METHYL SALICYLATE/MENTHOL OINT 30 GM TUBE TP SCH (21:38)
[2017-05-29] MEDS: traZODone HCL 50 MG TABLET (FP) PO SCH (21:40)
[2017-05-29] MEDS: diphenhydrAMINE HCL 50 MG CAPSULE PO PRN (21:40)
[2017-05-29] MEDS: QUEtiapine FUMARATE 50 MG TABLET PO SCH (21:40)
[2017-05-30] MEDS: CYCLOBENZAPRINE HCL 5 MG TABLET PO SCH ×3 (06:31→21:43)
[2017-05-30] MEDS: FUROSEMIDE 40 MG TABLET (FP) PO SCH ×2 (06:32→13:18)
[2017-05-30] MEDS ORDERED: PT OWN MED DRAWER 7, Y5N ONE (08:50)
[2017-05-30] MEDS: SERTRALINE HCL 50 MG TABLET (FP) PO SCH (10:13)
[2017-05-30] MEDS: PRENATAL VITAMINS W/ FOLIC ACID TABLET (FP) PO SCH (10:13)
[2017-05-30] MEDS: NICOTINE 21 MG/24 HOURS TOPICAL PATCH TD SCH (10:14)
[2017-05-30] MEDS: METHYL SALICYLATE/MENTHOL OINT 30 GM TUBE TP SCH ×2 (10:14→21:44)
[2017-05-30] MEDS: LIDOCAINE 5% TOPICAL PATCH TP SCH (10:15)
[2017-05-30] MEDS: BUDESONIDE/FORMETEROL FUMARATE 80/4.5 mcg INHALER IH SCH ×2 (10:16→21:45)
[2017-05-30] MEDS: hydrOXYzine PAMOATE 50 MG CAPSULE (FP) PO PRN (13:18)
[2017-05-30] MEDS ORDERED: diphenhydrAMINE HCL 25 MG CAPSULE (FP) PO PRN (14:50)
[2017-05-30] MEDS: FERROUS SO4 325 MG TABLET (FP) PO SCH (18:08)
[2017-05-30] MEDS: QUEtiapine FUMARATE 50 MG TABLET PO SCH (21:43)
[2017-05-30] MEDS: traZODone HCL 50 MG TABLET (FP) PO SCH (21:43)
[2017-05-30] MEDS: diphenhydrAMINE HCL 50 MG CAPSULE PO PRN (21:44)
[2017-05-30] MEDS: DOCUSATE SODIUM 100 MG CAPSULE (FP) PO SCH (21:45)
[2017-05-30] MEDS: LIDOCAINE PATCH REMOVAL MC SCH (21:46)
[2017-05-30] MEDS: PSYLLIUM 5.85 GM PACKET PO SCH (21:46)
[2017-05-30] MEDS: THIAMINE HCL 100 MG TABLET (FP) PO SCH (21:47)
[2017-05-31] MEDS: CYCLOBENZAPRINE HCL 5 MG TABLET PO SCH ×3 (06:51→21:45)
[2017-05-31] MEDS: FUROSEMIDE 40 MG TABLET (FP) PO SCH ×2 (06:51→13:01)
[2017-05-31] MEDS: DOCUSATE SODIUM 100 MG CAPSULE (FP) PO SCH ×3 (06:51→21:45)
[2017-05-31] MEDS: hydrOXYzine PAMOATE 50 MG CAPSULE (FP) PO PRN (06:53)
[2017-05-31] MEDS ORDERED: PT OWN MED DRAWER 7, Y5N ONE ×3 (06:55→08:45)
[2017-05-31] MEDS: FERROUS SO4 325 MG TABLET (FP) PO SCH ×3 (07:06→17:40)
[2017-05-31] MEDS: NICOTINE POLACRILEX 4 MG GUM BUC PRN ×4 (08:09→21:47)
[2017-05-31] MEDS: METHYL SALICYLATE/MENTHOL OINT 30 GM TUBE TP SCH ×2 (10:12→21:46)
[2017-05-31] MEDS: LIDOCAINE 5% TOPICAL PATCH TP SCH (10:12)
[2017-05-31] MEDS: SERTRALINE HCL 50 MG TABLET (FP) PO SCH (10:12)
[2017-05-31] MEDS: PRENATAL VITAMINS W/ FOLIC ACID TABLET (FP) PO SCH (10:12)
[2017-05-31] MEDS: BUDESONIDE/FORMETEROL FUMARATE 80/4.5 mcg INHALER IH SCH ×2 (10:13→21:44)
[2017-05-31] MEDS: NICOTINE 21 MG/24 HOURS TOPICAL PATCH TD SCH (10:13)
[2017-05-31] MEDS: PSYLLIUM 5.85 GM PACKET PO SCH ×2 (10:15→21:47)
[2017-05-31 10:29] LABS: MCH 20.4 pg (25.7-33.7); MCHC 29.8 g/dl (32.0-36.0); MEAN CELL VOLUME 68.5 fl (80-96); MEAN PLT VOLUME 8.8 fl (7.5-11.1); PLATELET COUNT 362 K/MM3 (134-434); RDW 26.9 % (11.6-15.6); WHITE BLOOD COUNT 7.2 K/mm3 (4.0-10.0)
[2017-05-31 11:40] LABS: ANION GAP 11 (8-16); CALCIUM 8.7 mg/dL (8.5-10.1); CO2 25 mmol/L (21-32); CREATININE 0.9 mg/dL (0.55-1.02); GLUCOSE,RANDOM 88 mg/dL (74-106)
--- NOTE | 2017-05-31 13:41 | PN ---
Psychiatric Progress Note Vital Signs: Vital Signs Period Temp Pulse Resp BP Sys/Duke Pulse Ox Last 24 Hr 98.0 F 68 16-18 116/77 Date of Session: 05/31/17 Chief Complaint:: i am still having mood instability and sleeing problems. HPI: Patient addressed Cocaine,Cannabis and Alcohol dependence comorbid with Substance induced mood disorder. ROS: Significant for CHF,Obesity,H/O Gastric bypass. Current Medications: Active Medications Generic Name Dose Route Start Last Admin Trade Name Freq PRN Reason Stop Dose Admin Acetaminophen 650 mg 05/28/17 19:42 Tylenol - PO Q4H PRN PAIN Al Hydroxide/Mg Hydroxide 30 ml 05/28/17 19:42 Mylanta Oral Suspension - PO Q6H PRN DYSPEPSIA Albuterol Sulfate 2 puff 05/28/17 19:43 05/31/17 06:55 Ventolin Hfa Inhaler - IH 2 inh Q4H PRN Administration SHORT OF BREATH/WHEEZING Albuterol/Ipratropium 1 amp 05/28/17 19:44 Duoneb - NEB Q6H PRN SHORTNESS OF BREATH Budesonide/Formoterol Fumarate 2 puff 05/28/17 22:00 05/31/17 10:13 Symbicort 80/4.5mcg - IH 2 puff BID KRISTA Administration Cyclobenzaprine HCl 5 mg 05/29/17 15:05 05/31/17 13:01 Cyclobenzaprine Hcl PO 5 mg TID KRISTA Administration Diphenhydramine HCl 50 mg 05/28/17 19:42 05/30/17 21:44 Benadryl - PO 50 mg HSMR1 PRN Administration INSOMNIA Diphenhydramine HCl 25 mg 05/30/17 14:50 Benadryl - PO Q4H PRN FOR ITCHING Docusate Sodium 100 mg 05/30/17 22:00 05/31/17 13:01 Colace - PO 100 mg TID KRISTA Administration Eucalyptus/Menthol/Phenol/Sorbitol 1 each 05/28/17 19:42 Cepastat Lozenge - MM Q4H PRN SORE THROAT Ferrous Sulfate 325 mg 05/30/17 17:30 05/31/17 13:01 Feosol - PO 325 mg TIDCM KRISTA Administration Furosemide 40 mg 05/29/17 06:00 05/31/17 13:01 Lasix - PO 40 mg BIDLASIX KRISTA Administration Guaifenesin 10 ml 05/28/17 19:42 Robitussin Dm - PO Q6H PRN COUGH Hydroxyzine Pamoate 50 mg 05/28/17 19:42 05/31/17 06:53 Vistaril - PO 50 mg Q4H PRN Administration AGITATION Lidocaine 1 patch 05/29/17 14:45 05/31/17 10:12 Lidoderm Patch - TP 1 patch DAILY KRISTA Administration Loperamide HCl 4 mg 05/28/17 19:42 Imodium - PO Q6H PRN DIARRHEA Magnesium Citrate 300 ml 05/28/17 19:42 Citroma - PO Q48H PRN CONSTIPATION Magnesium Hydroxide 30 ml 05/28/17 19:42 Milk Of Magnesia - PO DAILY PRN CONSTIPATION Methyl Salicylate 1 applic 05/29/17 22:00 05/31/17 10:12 Kartik-Gary - TP 1 applic BID KRISTA Administration Miscellaneous 1 each 05/29/17 22:00 05/30/17 21:46 Lidoderm Patch Removal MC 1 each DAILY@2200 KRISTA Administration Nicotine 21 mg 05/29/17 10:00 05/31/17 10:13 Nicoderm Patch - TD 21 mg DAILY KRISTA Administration Nicotine Polacrilex 4 mg 05/28/17 19:42 05/31/17 10:16 Nicorette Gum - BUC 4 mg Q2H PRN Administration NICOTINE REPLACEMENT RX Multivit/Folic Acid/Iron 1 tab 05/29/17 10:00 05/31/17 10:12 Vitamins (Sjr) - PO 1 tab DAILY KRISTA Administration Pseudoephedrine/Triprolidine 1 combo 05/28/17 19:42 Actifed - PO TID PRN NASAL CONGESTION Psyllium Hydrophilic Mucilloid 5.85 gm 05/30/17 22:00 05/31/17 10:15 Metamucil (Sugar-Free) - PO 5.85 gm BID KRISTA Administration Quetiapine Fumarate 50 mg 05/31/17 14:00 Seroquel - PO TID KRISTA Sertraline HCl 50 mg 05/29/17 13:30 05/31/17 10:12 Zoloft - PO 50 mg DAILY KRISTA Administration Thiamine HCl 100 mg 05/28/17 22:00 05/30/17 21:47 Vitamin B1 - PO 100 mg HS KRISTA Administration Trazodone HCl 50 mg 05/29/17 22:00 05/30/17 21:43 Desyrel - PO 50 mg HS KRISTA Administration Current Side Effect: No Lab tests ordered: No Lab tests reviewed: Yes Provider note:: Chart was revuewed,patient was evaluated and treatment including medication management has been discussed with the patient.She addressed ongoing sleeping difficulties and as a result some mood instability, fatique,anxiety.Seroquel 50 mg po hs will be adjusted to 50 mg po tid.Continue Zoloft 50 mg po daily and Trazodone 50 mg po hs. Psycheducation has been provided as well as.Relaxations techniques has been discussed as well.Supportive therapy provided. Total face to face time:: 30 Mental Status Exam - Mental Status Exam Alert and Oriented to: Time, Place, Person Cognitive Function: Grossly Intact Patient Appearance: Well Groomed Mood: Anxious, Irritable Affect: Mood Congruent, Labile Patient Behavior: Appropriate, Cooperative Speech Pattern: Clear Voice Loudness: Normal Thought Process: Goal Oriented Thought Disorder: Not Present Hallucinations: Denies Suicidal Ideation: Denies Homicidal Ideation: Denies Insight/Judgement: Fair Sleep: Difficulty falling asleep Appetite: Good Muscle strength/Tone: Normal Gait/Station: Normal Psychiatric Treatment Plan - Problem List (1) Nicotine dependence Current Visit: Yes Qualifiers: Nicotine product type: cigarettes Substance use status: in withdrawal Qualified Code(s): F17.213 - Nicotine dependence, cigarettes, with withdrawal (2) Asthma Current Visit: Yes Qualifiers: Asthma severity: mild intermittent Asthma complication type: with status asthmaticus Qualified Code(s): J45.22 - Mild intermittent asthma with status asthmaticus (3) CHF (congestive heart failure) Current Visit: Yes Qualifiers: Congestive heart failure type: systolic Congestive heart failure chronicity: chronic Qualified Code(s): I50.22 - Chronic systolic ( congestive) heart failure (4) Obesity (BMI 30.0-34.9) Current Visit: Yes (5) H/O gastric bypass Current Visit: Yes (6) Cannabis dependence Current Visit: Yes (7) Cocaine dependence Current Visit: Yes Qualifiers: Substance use status: uncomplicated Qualified Code(s): F14.20 - Cocaine dependence, uncomplicated (8) Drug-induced mood disorder Current Visit: Yes (9) Alcohol dependence Current Visit: Yes
[2017-05-31] MEDS: QUEtiapine FUMARATE 50 MG TABLET PO SCH ×2 (15:08→21:45)
[2017-05-31] MEDS: diphenhydrAMINE HCL 50 MG CAPSULE PO PRN (21:45)
[2017-05-31] MEDS: traZODone HCL 50 MG TABLET (FP) PO SCH (21:45)
[2017-05-31] MEDS: THIAMINE HCL 100 MG TABLET (FP) PO SCH (21:45)
[2017-05-31] MEDS: LIDOCAINE PATCH REMOVAL MC SCH (21:48)
[2017-06-01] MEDS: hydrOXYzine PAMOATE 50 MG CAPSULE (FP) PO PRN ×2 (02:53→13:11)
[2017-06-01] MEDS: CYCLOBENZAPRINE HCL 5 MG TABLET PO SCH ×3 (06:44→21:44)
[2017-06-01] MEDS: QUEtiapine FUMARATE 50 MG TABLET PO SCH ×3 (06:45→21:42)
[2017-06-01] MEDS: FUROSEMIDE 40 MG TABLET (FP) PO SCH ×2 (06:45→13:09)
[2017-06-01] MEDS: DOCUSATE SODIUM 100 MG CAPSULE (FP) PO SCH ×3 (06:45→21:42)
[2017-06-01] MEDS: FERROUS SO4 325 MG TABLET (FP) PO SCH ×3 (07:01→17:32)
[2017-06-01] MEDS: LIDOCAINE 5% TOPICAL PATCH TP SCH (09:56)
[2017-06-01] MEDS: METHYL SALICYLATE/MENTHOL OINT 30 GM TUBE TP SCH ×2 (09:57→21:44)
[2017-06-01] MEDS: PSYLLIUM 5.85 GM PACKET PO SCH ×2 (09:58→21:44)
[2017-06-01] MEDS: NICOTINE 21 MG/24 HOURS TOPICAL PATCH TD SCH (09:58)
[2017-06-01] MEDS: BUDESONIDE/FORMETEROL FUMARATE 80/4.5 mcg INHALER IH SCH ×2 (09:59→21:42)
[2017-06-01] MEDS: SERTRALINE HCL 50 MG TABLET (FP) PO SCH (09:59)
[2017-06-01] MEDS: PRENATAL VITAMINS W/ FOLIC ACID TABLET (FP) PO SCH (09:59)
[2017-06-01] MEDS ORDERED: PT OWN MED DRAWER 7, Y5N ONE (19:42)
[2017-06-01] MEDS: THIAMINE HCL 100 MG TABLET (FP) PO SCH (21:42)
[2017-06-01] MEDS: traZODone HCL 50 MG TABLET (FP) PO SCH (21:42)
[2017-06-01] MEDS: diphenhydrAMINE HCL 50 MG CAPSULE PO PRN (21:43)
[2017-06-01] MEDS: LIDOCAINE PATCH REMOVAL MC SCH (21:45)
[2017-06-01] MEDS: NICOTINE POLACRILEX 4 MG GUM BUC PRN (21:45)
[2017-06-02] MEDS: FUROSEMIDE 40 MG TABLET (FP) PO SCH ×2 (06:52→13:18)
[2017-06-02] MEDS: DOCUSATE SODIUM 100 MG CAPSULE (FP) PO SCH ×3 (06:52→21:51)
[2017-06-02] MEDS: NICOTINE POLACRILEX 4 MG GUM BUC PRN ×3 (06:52→21:53)
[2017-06-02] MEDS: CYCLOBENZAPRINE HCL 5 MG TABLET PO SCH ×2 (06:52→13:16)
[2017-06-02] MEDS: QUEtiapine FUMARATE 50 MG TABLET PO SCH ×3 (06:53→21:51)
[2017-06-02] MEDS: FERROUS SO4 325 MG TABLET (FP) PO SCH ×3 (07:01→17:05)
[2017-06-02] MEDS: LIDOCAINE 5% TOPICAL PATCH TP SCH (10:09)
[2017-06-02] MEDS: PRENATAL VITAMINS W/ FOLIC ACID TABLET (FP) PO SCH (10:10)
[2017-06-02] MEDS: NICOTINE 21 MG/24 HOURS TOPICAL PATCH TD SCH (10:10)
[2017-06-02] MEDS: PSYLLIUM 5.85 GM PACKET PO SCH ×2 (10:11→22:13)
[2017-06-02] MEDS: METHYL SALICYLATE/MENTHOL OINT 30 GM TUBE TP SCH ×2 (10:11→21:50)
[2017-06-02] MEDS: SERTRALINE HCL 50 MG TABLET (FP) PO SCH (10:11)
[2017-06-02] MEDS: BUDESONIDE/FORMETEROL FUMARATE 80/4.5 mcg INHALER IH SCH ×2 (10:11→21:50)
[2017-06-02] MEDS ORDERED: PT OWN MED DRAWER 7, Y5N ONE (19:37)
[2017-06-02] MEDS ORDERED: CYCLOBENZAPRINE HCL 10 MG TABLET (FP) PO PRN (20:34)
[2017-06-02] MEDS: LIDOCAINE PATCH REMOVAL MC SCH (21:51)
[2017-06-02] MEDS: traZODone HCL 50 MG TABLET (FP) PO SCH (21:51)
[2017-06-02] MEDS: THIAMINE HCL 100 MG TABLET (FP) PO SCH (21:51)
[2017-06-02] MEDS: diphenhydrAMINE HCL 50 MG CAPSULE PO PRN (21:52)
[2017-06-03] MEDS: DOCUSATE SODIUM 100 MG CAPSULE (FP) PO SCH ×3 (06:44→22:01)
[2017-06-03] MEDS: QUEtiapine FUMARATE 50 MG TABLET PO SCH ×3 (06:45→22:01)
[2017-06-03] MEDS: FUROSEMIDE 40 MG TABLET (FP) PO SCH ×2 (06:45→13:15)
[2017-06-03] MEDS: NICOTINE POLACRILEX 4 MG GUM BUC PRN ×4 (06:47→22:05)
[2017-06-03] MEDS: FERROUS SO4 325 MG TABLET (FP) PO SCH ×3 (07:09→17:43)
[2017-06-03] MEDS: METHYL SALICYLATE/MENTHOL OINT 30 GM TUBE TP SCH ×2 (10:09→22:02)
[2017-06-03] MEDS: LIDOCAINE 5% TOPICAL PATCH TP SCH (10:09)
[2017-06-03] MEDS: SERTRALINE HCL 50 MG TABLET (FP) PO SCH (10:10)
[2017-06-03] MEDS: PSYLLIUM 5.85 GM PACKET PO SCH ×2 (10:10→22:04)
[2017-06-03] MEDS: PRENATAL VITAMINS W/ FOLIC ACID TABLET (FP) PO SCH (10:10)
[2017-06-03] MEDS: NICOTINE 21 MG/24 HOURS TOPICAL PATCH TD SCH (10:11)
[2017-06-03] MEDS: BUDESONIDE/FORMETEROL FUMARATE 80/4.5 mcg INHALER IH SCH ×2 (10:49→22:06)
[2017-06-03] MEDS ORDERED: CYCLOBENZAPRINE HCL 10 MG TABLET (FP) PO SCH (22:00)
[2017-06-03] MEDS: THIAMINE HCL 100 MG TABLET (FP) PO SCH (22:01)
[2017-06-03] MEDS: CYCLOBENZAPRINE HCL 10 MG TABLET (FP) PO PRN (22:01)
[2017-06-03] MEDS: diphenhydrAMINE HCL 50 MG CAPSULE PO PRN (22:01)
[2017-06-03] MEDS: traZODone HCL 50 MG TABLET (FP) PO SCH (22:01)
[2017-06-03] MEDS: LIDOCAINE PATCH REMOVAL MC SCH (22:04)
[2017-06-04] MEDS: QUEtiapine FUMARATE 50 MG TABLET PO SCH ×3 (06:27→22:10)
[2017-06-04] MEDS: DOCUSATE SODIUM 100 MG CAPSULE (FP) PO SCH ×3 (06:27→22:09)
[2017-06-04] MEDS: FUROSEMIDE 40 MG TABLET (FP) PO SCH ×2 (06:27→13:26)
[2017-06-04] MEDS: NICOTINE POLACRILEX 4 MG GUM BUC PRN ×2 (06:30→22:12)
[2017-06-04] MEDS: CYCLOBENZAPRINE HCL 10 MG TABLET (FP) PO PRN ×2 (06:30→16:58)
[2017-06-04] MEDS: FERROUS SO4 325 MG TABLET (FP) PO SCH ×3 (07:36→16:56)
[2017-06-04] MEDS: NICOTINE 21 MG/24 HOURS TOPICAL PATCH TD SCH (10:18)
[2017-06-04] MEDS: PRENATAL VITAMINS W/ FOLIC ACID TABLET (FP) PO SCH (10:20)
[2017-06-04] MEDS: SERTRALINE HCL 50 MG TABLET (FP) PO SCH (10:20)
[2017-06-04] MEDS: LIDOCAINE 5% TOPICAL PATCH TP SCH (10:23)
[2017-06-04] MEDS: PSYLLIUM 5.85 GM PACKET PO SCH ×2 (10:23→22:10)
[2017-06-04] MEDS: BUDESONIDE/FORMETEROL FUMARATE 80/4.5 mcg INHALER IH SCH ×2 (10:23→22:10)
[2017-06-04] MEDS: METHYL SALICYLATE/MENTHOL OINT 30 GM TUBE TP SCH ×2 (10:25→22:09)
[2017-06-04] MEDS: hydrOXYzine PAMOATE 50 MG CAPSULE (FP) PO PRN ×3 (12:50→23:34)
[2017-06-04] MEDS ORDERED: NICOTINE POLACRILEX 4 MG GUM BUC ONE (22:09)
[2017-06-04] MEDS: traZODone HCL 50 MG TABLET (FP) PO SCH (22:10)
[2017-06-04] MEDS: LIDOCAINE PATCH REMOVAL MC SCH (22:10)
[2017-06-04] MEDS: diphenhydrAMINE HCL 50 MG CAPSULE PO PRN (22:11)
[2017-06-04] MEDS: THIAMINE HCL 100 MG TABLET (FP) PO SCH (22:11)
[2017-06-04] MEDS ORDERED: PT OWN MED DRAWER 7, Y5N ONE (22:12)
[2017-06-05] MEDS: DOCUSATE SODIUM 100 MG CAPSULE (FP) PO SCH ×3 (06:44→21:51)
[2017-06-05] MEDS: QUEtiapine FUMARATE 50 MG TABLET PO SCH ×3 (06:44→21:51)
[2017-06-05] MEDS: FUROSEMIDE 40 MG TABLET (FP) PO SCH ×2 (06:44→13:08)
[2017-06-05] MEDS: CYCLOBENZAPRINE HCL 10 MG TABLET (FP) PO PRN ×2 (06:44→18:42)
[2017-06-05] MEDS: FERROUS SO4 325 MG TABLET (FP) PO SCH ×3 (07:23→16:59)
--- NOTE | 2017-06-05 09:59 | PN ---
Psychiatric Progress Note Vital Signs: Vital Signs Period Temp Pulse Resp BP Sys/Duke Pulse Ox Last 24 Hr 97.6 F 82 16-18 105/71 Date of Session: 06/05/17 Chief Complaint:: "Sleep is still a problem,lack of sleep makes me nervious." HPI: Patient addressed Alcohol,Cannabis and Cocaine dependence comorbid with Substance induced mood disorder. ROS: Significant for CHF,Obesity,H/O Gastric Bypass surgery. Current Medications: Active Medications Generic Name Dose Route Start Last Admin Trade Name Freq PRN Reason Stop Dose Admin Acetaminophen 650 mg 05/28/17 19:42 Tylenol - PO Q4H PRN PAIN Al Hydroxide/Mg Hydroxide 30 ml 05/28/17 19:42 Mylanta Oral Suspension - PO Q6H PRN DYSPEPSIA Albuterol Sulfate 2 puff 05/28/17 19:43 05/31/17 06:55 Ventolin Hfa Inhaler - IH 2 inh Q4H PRN Administration SHORT OF BREATH/WHEEZING Budesonide/Formoterol Fumarate 2 puff 05/28/17 22:00 06/04/17 22:10 Symbicort 80/4.5mcg - IH 2 puff BID KRISTA Administration Cyclobenzaprine HCl 10 mg 06/03/17 18:41 06/05/17 06:44 Flexeril - PO 10 mg Q8H PRN Administration BACK PAIN Diphenhydramine HCl 25 mg 05/30/17 14:50 Benadryl - PO Q4H PRN FOR ITCHING Diphenhydramine HCl 50 mg 06/05/17 22:00 Benadryl - PO HS KRISTA Docusate Sodium 100 mg 05/30/17 22:00 06/05/17 06:44 Colace - PO 100 mg TID KRISTA Administration Eucalyptus/Menthol/Phenol/Sorbitol 1 each 05/28/17 19:42 Cepastat Lozenge - MM Q4H PRN SORE THROAT Ferrous Sulfate 325 mg 05/30/17 17:30 06/05/17 07:23 Feosol - PO 325 mg TIDCM KRISTA Administration Furosemide 40 mg 05/29/17 06:00 06/05/17 06:44 Lasix - PO Not Given BIDLASIX KRISTA Guaifenesin 10 ml 05/28/17 19:42 Robitussin Dm - PO Q6H PRN COUGH Hydroxyzine Pamoate 50 mg 05/28/17 19:42 06/04/17 23:34 Vistaril - PO 50 mg Q4H PRN Administration AGITATION Lidocaine 1 patch 05/29/17 14:45 06/04/17 10:23 Lidoderm Patch - TP 1 patch DAILY KRISTA Administration Loperamide HCl 4 mg 05/28/17 19:42 Imodium - PO Q6H PRN DIARRHEA Magnesium Citrate 300 ml 05/28/17 19:42 Citroma - PO Q48H PRN CONSTIPATION Magnesium Hydroxide 30 ml 05/28/17 19:42 Milk Of Magnesia - PO DAILY PRN CONSTIPATION Methyl Salicylate 1 applic 05/29/17 22:00 06/04/17 22:09 Kartik-Gary - TP 1 applic BID KRISTA Administration Miscellaneous 1 each 05/29/17 22:00 06/04/17 22:10 Lidoderm Patch Removal MC 1 each DAILY@2200 KRISTA Administration Nicotine 21 mg 05/29/17 10:00 06/04/17 10:18 Nicoderm Patch - TD 21 mg DAILY KRISTA Administration Nicotine Polacrilex 4 mg 05/28/17 19:42 06/04/17 22:12 Nicorette Gum - BUC 4 mg Q2H PRN Administration NICOTINE REPLACEMENT RX Multivit/Folic Acid/Iron 1 tab 05/29/17 10:00 06/04/17 10:20 Vitamins (Sjr) - PO 1 tab DAILY KRISTA Administration Pseudoephedrine/Triprolidine 1 combo 05/28/17 19:42 Actifed - PO TID PRN NASAL CONGESTION Psyllium Hydrophilic Mucilloid 5.85 gm 05/30/17 22:00 06/04/17 22:10 Metamucil (Sugar-Free) - PO Not Given BID KRISTA Quetiapine Fumarate 50 mg 05/31/17 14:29 06/05/17 06:44 Seroquel - PO 50 mg TID KRISTA Administration Sertraline HCl 50 mg 05/29/17 13:30 06/04/17 10:20 Zoloft - PO 50 mg DAILY KRISTA Administration Thiamine HCl 100 mg 05/28/17 22:00 06/04/17 22:11 Vitamin B1 - PO 100 mg HS KRISTA Administration Trazodone HCl 100 mg 06/05/17 22:00 Desyrel - PO HS KRISTA Current Side Effect: No Lab tests ordered: No Lab tests reviewed: Yes Provider note:: Chart was revuewed,patient was seen,ongoing sleep difficulties and anxiety as a result of lack of sleep has been discussed as well as medication management.Properties of Trazodone has been discussed including side effects,benefits,dose adjustemnt.Trazodone 50 mg po hs will be adjusted to 100 mg po hs,Benadryl 50 mg po hs prn will be adjusted to 50 mg po hs standing dose. Supportive therapy provided. Total face to face time:: 25 Mental Status Exam - Mental Status Exam Alert and Oriented to: Time, Place, Person Cognitive Function: Grossly Intact Patient Appearance: Well Groomed Mood: Anxious Affect: Labile Patient Behavior: Cooperative Speech Pattern: Clear Voice Loudness: Normal Thought Process: Goal Oriented Thought Disorder: Being Controlled Hallucinations: Denies Suicidal Ideation: Denies Homicidal Ideation: Denies Insight/Judgement: Fair Sleep: Difficulty falling asleep Appetite: Fair Muscle strength/Tone: Normal Gait/Station: Normal Psychiatric Treatment Plan - Problem List (1) Nicotine dependence Current Visit: Yes Qualifiers: Nicotine product type: cigarettes Substance use status: in withdrawal Qualified Code(s): F17.213 - Nicotine dependence, cigarettes, with withdrawal (2) Asthma Current Visit: Yes Qualifiers: Asthma severity: mild intermittent Asthma complication type: with status asthmaticus Qualified Code(s): J45.22 - Mild intermittent asthma with status asthmaticus (3) CHF (congestive heart failure) Current Visit: Yes Qualifiers: Congestive heart failure type: systolic Congestive heart failure chronicity: chronic Qualified Code(s): I50.22 - Chronic systolic ( congestive) heart failure (4) Obesity (BMI 30.0-34.9) Current Visit: Yes (5) H/O gastric bypass Current Visit: Yes (6) Cannabis dependence Current Visit: Yes (7) Cocaine dependence Current Visit: Yes Qualifiers: Substance use status: uncomplicated Qualified Code(s): F14.20 - Cocaine dependence, uncomplicated (8) Drug-induced mood disorder Current Visit: Yes (9) Alcohol dependence Current Visit: Yes
[2017-06-05] MEDS: SERTRALINE HCL 50 MG TABLET (FP) PO SCH (10:43)
[2017-06-05] MEDS: PRENATAL VITAMINS W/ FOLIC ACID TABLET (FP) PO SCH (10:43)
[2017-06-05] MEDS: BUDESONIDE/FORMETEROL FUMARATE 80/4.5 mcg INHALER IH SCH ×2 (10:44→21:51)
[2017-06-05] MEDS: NICOTINE 21 MG/24 HOURS TOPICAL PATCH TD SCH (10:45)
[2017-06-05] MEDS: LIDOCAINE 5% TOPICAL PATCH TP SCH (10:45)
[2017-06-05] MEDS: PSYLLIUM 5.85 GM PACKET PO SCH ×2 (10:46→21:52)
[2017-06-05] MEDS: NICOTINE POLACRILEX 4 MG GUM BUC PRN ×3 (10:46→17:00)
[2017-06-05] MEDS: hydrOXYzine PAMOATE 50 MG CAPSULE (FP) PO PRN ×2 (10:46→16:59)
[2017-06-05] MEDS: METHYL SALICYLATE/MENTHOL OINT 30 GM TUBE TP SCH ×2 (10:46→21:51)
[2017-06-05] MEDS: traZODone HCL 100 MG TABLET (FP) PO SCH (21:51)
[2017-06-05] MEDS: diphenhydrAMINE HCL 50 MG CAPSULE PO SCH (21:51)
[2017-06-05] MEDS: THIAMINE HCL 100 MG TABLET (FP) PO SCH (21:51)
[2017-06-05] MEDS: LIDOCAINE PATCH REMOVAL MC SCH (21:52)
[2017-06-06] MEDS: FUROSEMIDE 40 MG TABLET (FP) PO SCH ×2 (06:42→13:15)
[2017-06-06] MEDS: hydrOXYzine PAMOATE 50 MG CAPSULE (FP) PO PRN ×2 (06:42→10:40)
[2017-06-06] MEDS: QUEtiapine FUMARATE 50 MG TABLET PO SCH ×3 (06:42→21:42)
[2017-06-06] MEDS: CYCLOBENZAPRINE HCL 10 MG TABLET (FP) PO PRN ×2 (06:42→16:48)
[2017-06-06] MEDS: DOCUSATE SODIUM 100 MG CAPSULE (FP) PO SCH ×3 (06:42→21:41)
[2017-06-06] MEDS: FERROUS SO4 325 MG TABLET (FP) PO SCH ×3 (07:43→16:48)
[2017-06-06] MEDS: SERTRALINE HCL 50 MG TABLET (FP) PO SCH (10:35)
[2017-06-06] MEDS: METHYL SALICYLATE/MENTHOL OINT 30 GM TUBE TP SCH ×2 (10:35→21:42)
[2017-06-06] MEDS: PRENATAL VITAMINS W/ FOLIC ACID TABLET (FP) PO SCH (10:35)
[2017-06-06] MEDS: BUDESONIDE/FORMETEROL FUMARATE 80/4.5 mcg INHALER IH SCH ×2 (10:35→21:42)
[2017-06-06] MEDS: NICOTINE 21 MG/24 HOURS TOPICAL PATCH TD SCH (10:36)
[2017-06-06] MEDS: PSYLLIUM 5.85 GM PACKET PO SCH ×2 (10:38→21:42)
[2017-06-06] MEDS: LIDOCAINE 5% TOPICAL PATCH TP SCH (10:39)
[2017-06-06] MEDS: NICOTINE POLACRILEX 4 MG GUM BUC PRN ×2 (10:40→16:50)
[2017-06-06] MEDS ORDERED: PT OWN MED DRAWER 7, Y5N ONE (11:44)
[2017-06-06] MEDS ORDERED: NAPROXEN 500 MG TABLET (FP) PO ONE (17:59)
[2017-06-06] MEDS ORDERED: SUMAtriptan SUCCINATE 25 MG TABLET PO ONE (18:30)
[2017-06-06] MEDS: diphenhydrAMINE HCL 50 MG CAPSULE PO SCH (21:41)
[2017-06-06] MEDS: THIAMINE HCL 100 MG TABLET (FP) PO SCH (21:42)
[2017-06-06] MEDS: traZODone HCL 100 MG TABLET (FP) PO SCH (21:42)
[2017-06-06] MEDS: LIDOCAINE PATCH REMOVAL MC SCH (21:42)
[2017-06-07] MEDS: hydrOXYzine PAMOATE 50 MG CAPSULE (FP) PO PRN ×2 (06:17→17:01)
[2017-06-07] MEDS: CYCLOBENZAPRINE HCL 10 MG TABLET (FP) PO PRN ×3 (06:18→21:40)
[2017-06-07] MEDS: DOCUSATE SODIUM 100 MG CAPSULE (FP) PO SCH ×3 (06:18→21:38)
[2017-06-07] MEDS: QUEtiapine FUMARATE 50 MG TABLET PO SCH ×2 (06:18→15:08)
[2017-06-07] MEDS: NICOTINE POLACRILEX 4 MG GUM BUC PRN ×3 (06:19→17:02)
[2017-06-07] MEDS: FERROUS SO4 325 MG TABLET (FP) PO SCH ×3 (07:22→16:59)
[2017-06-07] MEDS ORDERED: PT OWN MED DRAWER 7, Y5N ONE ×2 (08:43→19:44)
[2017-06-07] MEDS ORDERED: FUROSEMIDE 40 MG TABLET (FP) PO SCH (10:00)
[2017-06-07] MEDS: PRENATAL VITAMINS W/ FOLIC ACID TABLET (FP) PO SCH (10:43)
[2017-06-07] MEDS: SERTRALINE HCL 50 MG TABLET (FP) PO SCH (10:43)
[2017-06-07] MEDS: BUDESONIDE/FORMETEROL FUMARATE 80/4.5 mcg INHALER IH SCH ×2 (10:44→21:38)
[2017-06-07] MEDS: NICOTINE 21 MG/24 HOURS TOPICAL PATCH TD SCH (10:45)
[2017-06-07] MEDS: LIDOCAINE 5% TOPICAL PATCH TP SCH (10:45)
[2017-06-07] MEDS: METHYL SALICYLATE/MENTHOL OINT 30 GM TUBE TP SCH ×2 (11:01→21:53)
[2017-06-07] MEDS: PSYLLIUM 5.85 GM PACKET PO SCH ×2 (11:02→21:53)
--- NOTE | 2017-06-07 16:10 | PN ---
Psychiatric Progress Note Vital Signs: Vital Signs Period Temp Pulse Resp BP Sys/Duke Pulse Ox Last 24 Hr 98.1 F 69 18-18 108/79 Date of Session: 06/07/17 Chief Complaint:: Logan hearing noise at time,it sound like a voices." HPI: Patient addressed Cocaine,Cannabis and Alcohol dependence comorbid with Substance induced mood disorder. ROS: Significant for CHF,Obesity. Current Medications: Active Medications Generic Name Dose Route Start Last Admin Trade Name Freq PRN Reason Stop Dose Admin Al Hydroxide/Mg Hydroxide 30 ml 05/28/17 19:42 Mylanta Oral Suspension - PO Q6H PRN DYSPEPSIA Albuterol Sulfate 2 puff 05/28/17 19:43 05/31/17 06:55 Ventolin Hfa Inhaler - IH 2 inh Q4H PRN Administration SHORT OF BREATH/WHEEZING Budesonide/Formoterol Fumarate 2 puff 05/28/17 22:00 06/07/17 10:44 Symbicort 80/4.5mcg - IH 2 puff BID KRISTA Administration Cyclobenzaprine HCl 10 mg 06/03/17 18:41 06/07/17 12:44 Flexeril - PO 10 mg Q8H PRN Administration BACK PAIN Diphenhydramine HCl 25 mg 05/30/17 14:50 Benadryl - PO Q4H PRN FOR ITCHING Diphenhydramine HCl 50 mg 06/05/17 22:00 06/06/17 21:41 Benadryl - PO 50 mg HS KRISTA Administration Docusate Sodium 100 mg 05/30/17 22:00 06/07/17 15:08 Colace - PO 100 mg TID KRISTA Administration Eucalyptus/Menthol/Phenol/Sorbitol 1 each 05/28/17 19:42 Cepastat Lozenge - MM Q4H PRN SORE THROAT Ferrous Sulfate 325 mg 05/30/17 17:30 06/07/17 12:42 Feosol - PO 325 mg TIDCM KRISTA Administration Furosemide 40 mg 06/07/17 15:52 Lasix - PO DAILY KRISTA Guaifenesin 10 ml 05/28/17 19:42 Robitussin Dm - PO Q6H PRN COUGH Hydroxyzine Pamoate 50 mg 05/28/17 19:42 06/07/17 06:17 Vistaril - PO 50 mg Q4H PRN Administration AGITATION Lidocaine 1 patch 05/29/17 14:45 06/07/17 10:45 Lidoderm Patch - TP 1 patch DAILY KRISTA Administration Loperamide HCl 4 mg 05/28/17 19:42 Imodium - PO Q6H PRN DIARRHEA Magnesium Citrate 300 ml 05/28/17 19:42 Citroma - PO Q48H PRN CONSTIPATION Magnesium Hydroxide 30 ml 05/28/17 19:42 Milk Of Magnesia - PO DAILY PRN CONSTIPATION Methyl Salicylate 1 applic 05/29/17 22:00 06/07/17 11:01 Kartik-Gary - TP Not Given BID KRISTA Miscellaneous 1 each 05/29/17 22:00 06/06/17 21:42 Lidoderm Patch Removal MC 1 each DAILY@2200 KRISTA Administration Nicotine 21 mg 05/29/17 10:00 06/07/17 10:45 Nicoderm Patch - TD 21 mg DAILY KRISTA Administration Nicotine Polacrilex 4 mg 05/28/17 19:42 06/07/17 12:44 Nicorette Gum - BUC 4 mg Q2H PRN Administration NICOTINE REPLACEMENT RX Multivit/Folic Acid/Iron 1 tab 05/29/17 10:00 06/07/17 10:43 Vitamins (Sjr) - PO 1 tab DAILY KRISTA Administration Pseudoephedrine/Triprolidine 1 combo 05/28/17 19:42 Actifed - PO TID PRN NASAL CONGESTION Psyllium Hydrophilic Mucilloid 5.85 gm 05/30/17 22:00 06/07/17 11:02 Metamucil (Sugar-Free) - PO Not Given BID KRISTA Quetiapine Fumarate 100 mg 06/07/17 22:00 Seroquel - PO BID KRISTA Risperidone 1 mg 06/07/17 16:02 Risperdal - PO TID PRN AGITATION Sertraline HCl 50 mg 05/29/17 13:30 06/07/17 10:43 Zoloft - PO 50 mg DAILY KRISTA Administration Thiamine HCl 100 mg 05/28/17 22:00 06/06/17 21:42 Vitamin B1 - PO 100 mg HS KRISTA Administration Trazodone HCl 100 mg 06/05/17 22:00 06/06/17 21:42 Desyrel - PO 100 mg HS KRISTA Administration Current Side Effect: No Lab tests ordered: No Lab tests reviewed: Yes Provider note:: Patient was evaluated,chart was revuewed.Treatment plan including medication management has been discussed with the patient.Benefits and side effects of Seroquel and Risperidone has been discussed with the patient as well as dose adjustment.patient is willing taking Risperidone 1 mg po prn for auditory halluciantions,agitation.Seroquel 50 mg po tid will be adjusted to 100 mg po bid.Continue Trazodone 100 mg po hs and Zoloft 50 mg po daily. Supportive therapy provided. Total face to face time:: 35 Mental Status Exam - Mental Status Exam Alert and Oriented to: Time, Place, Person Cognitive Function: Grossly Intact Patient Appearance: Unkempt Mood: Nervous Affect: Mood Congruent, Labile Patient Behavior: Cooperative Speech Pattern: Clear Voice Loudness: Normal Thought Process: Goal Oriented Thought Disorder: Being Controlled Hallucinations: Auditory Suicidal Ideation: Denies Homicidal Ideation: Denies Insight/Judgement: Fair Sleep: Difficulty falling asleep Appetite: Good Muscle strength/Tone: Normal Gait/Station: Normal Psychiatric Treatment Plan - Problem List (1) Nicotine dependence Current Visit: Yes Qualifiers: Nicotine product type: cigarettes Substance use status: in withdrawal Qualified Code(s): F17.213 - Nicotine dependence, cigarettes, with withdrawal (2) Asthma Current Visit: Yes Qualifiers: Asthma severity: mild intermittent Asthma complication type: with status asthmaticus Qualified Code(s): J45.22 - Mild intermittent asthma with status asthmaticus (3) CHF (congestive heart failure) Current Visit: Yes Qualifiers: Congestive heart failure type: systolic Congestive heart failure chronicity: chronic Qualified Code(s): I50.22 - Chronic systolic ( congestive) heart failure (4) Obesity (BMI 30.0-34.9) Current Visit: Yes (5) H/O gastric bypass Current Visit: Yes (6) Cannabis dependence Current Visit: Yes (7) Cocaine dependence Current Visit: Yes Qualifiers: Substance use status: uncomplicated Qualified Code(s): F14.20 - Cocaine dependence, uncomplicated (8) Drug-induced mood disorder Current Visit: Yes (9) Alcohol dependence Current Visit: Yes
[2017-06-07] MEDS: FUROSEMIDE 40 MG TABLET (FP) PO SCH (16:58)
[2017-06-07] MEDS: risperiDONE 1 MG TABLET (FP) PO PRN (17:48)
[2017-06-07] MEDS: QUEtiapine FUMARATE 100 MG TABLET (FP) PO SCH (21:38)
[2017-06-07] MEDS: traZODone HCL 100 MG TABLET (FP) PO SCH (21:38)
[2017-06-07] MEDS: diphenhydrAMINE HCL 50 MG CAPSULE PO SCH (21:38)
[2017-06-07] MEDS: THIAMINE HCL 100 MG TABLET (FP) PO SCH (21:39)
[2017-06-07] MEDS: LIDOCAINE PATCH REMOVAL MC SCH (21:53)
[2017-06-08] MEDS: DOCUSATE SODIUM 100 MG CAPSULE (FP) PO SCH ×3 (08:04→21:35)
[2017-06-08] MEDS: FERROUS SO4 325 MG TABLET (FP) PO SCH ×3 (08:04→17:11)
[2017-06-08] MEDS ORDERED: PT OWN MED DRAWER 7, Y5N ONE (08:52)
[2017-06-08] MEDS: QUEtiapine FUMARATE 100 MG TABLET (FP) PO SCH ×2 (09:08→21:35)
[2017-06-08] MEDS: SERTRALINE HCL 50 MG TABLET (FP) PO SCH (09:09)
[2017-06-08] MEDS: METHYL SALICYLATE/MENTHOL OINT 30 GM TUBE TP SCH ×2 (09:09→21:34)
[2017-06-08] MEDS: CYCLOBENZAPRINE HCL 10 MG TABLET (FP) PO PRN ×2 (09:09→21:35)
[2017-06-08] MEDS: FUROSEMIDE 40 MG TABLET (FP) PO SCH (09:09)
[2017-06-08] MEDS: PRENATAL VITAMINS W/ FOLIC ACID TABLET (FP) PO SCH (09:09)
[2017-06-08] MEDS: BUDESONIDE/FORMETEROL FUMARATE 80/4.5 mcg INHALER IH SCH ×2 (09:10→21:34)
[2017-06-08] MEDS: LIDOCAINE 5% TOPICAL PATCH TP SCH (09:10)
[2017-06-08] MEDS: NICOTINE 21 MG/24 HOURS TOPICAL PATCH TD SCH (09:10)
[2017-06-08] MEDS: NICOTINE POLACRILEX 4 MG GUM BUC PRN ×3 (09:12→17:11)
[2017-06-08] MEDS: PSYLLIUM 5.85 GM PACKET PO SCH ×2 (09:13→21:36)
[2017-06-08] MEDS: risperiDONE 1 MG TABLET (FP) PO PRN ×2 (13:44→21:35)
[2017-06-08] MEDS: hydrOXYzine PAMOATE 50 MG CAPSULE (FP) PO PRN (17:11)
[2017-06-08] MEDS ORDERED: SUMAtriptan SUCCINATE 25 MG TABLET PO ONE (18:49)
[2017-06-08] MEDS: traZODone HCL 100 MG TABLET (FP) PO SCH (21:35)
[2017-06-08] MEDS: LIDOCAINE PATCH REMOVAL MC SCH (21:35)
[2017-06-08] MEDS: THIAMINE HCL 100 MG TABLET (FP) PO SCH (21:35)
[2017-06-08] MEDS: diphenhydrAMINE HCL 50 MG CAPSULE PO SCH (21:35)
[2017-06-09] MEDS: DOCUSATE SODIUM 100 MG CAPSULE (FP) PO SCH ×3 (06:36→21:38)
[2017-06-09] MEDS: CYCLOBENZAPRINE HCL 10 MG TABLET (FP) PO PRN ×2 (06:36→21:41)
[2017-06-09] MEDS: hydrOXYzine PAMOATE 50 MG CAPSULE (FP) PO PRN ×2 (06:36→10:38)
[2017-06-09] MEDS: NICOTINE POLACRILEX 4 MG GUM BUC PRN ×3 (06:37→21:42)
[2017-06-09] MEDS: FERROUS SO4 325 MG TABLET (FP) PO SCH ×3 (07:06→16:51)
[2017-06-09] MEDS ORDERED: PT OWN MED DRAWER 7, Y5N ONE (08:51)
[2017-06-09] MEDS: PRENATAL VITAMINS W/ FOLIC ACID TABLET (FP) PO SCH (10:24)
[2017-06-09] MEDS: SERTRALINE HCL 50 MG TABLET (FP) PO SCH (10:24)
[2017-06-09] MEDS: FUROSEMIDE 40 MG TABLET (FP) PO SCH (10:24)
[2017-06-09] MEDS: NICOTINE 21 MG/24 HOURS TOPICAL PATCH TD SCH (10:25)
[2017-06-09] MEDS: METHYL SALICYLATE/MENTHOL OINT 30 GM TUBE TP SCH ×2 (10:25→21:41)
[2017-06-09] MEDS: QUEtiapine FUMARATE 100 MG TABLET (FP) PO SCH ×2 (10:25→21:38)
[2017-06-09] MEDS: LIDOCAINE 5% TOPICAL PATCH TP SCH (10:25)
[2017-06-09] MEDS: PSYLLIUM 5.85 GM PACKET PO SCH ×2 (10:25→21:39)
[2017-06-09] MEDS: BUDESONIDE/FORMETEROL FUMARATE 80/4.5 mcg INHALER IH SCH ×2 (10:26→21:53)
[2017-06-09] MEDS: traZODone HCL 100 MG TABLET (FP) PO SCH (21:38)
[2017-06-09] MEDS: diphenhydrAMINE HCL 50 MG CAPSULE PO SCH (21:38)
[2017-06-09] MEDS: THIAMINE HCL 100 MG TABLET (FP) PO SCH (21:38)
[2017-06-09] MEDS: LIDOCAINE PATCH REMOVAL MC SCH (21:53)
[2017-06-10] MEDS: hydrOXYzine PAMOATE 50 MG CAPSULE (FP) PO PRN ×4 (02:10→18:09)
[2017-06-10] MEDS: DOCUSATE SODIUM 100 MG CAPSULE (FP) PO SCH ×3 (06:46→22:02)
[2017-06-10] MEDS: CYCLOBENZAPRINE HCL 10 MG TABLET (FP) PO PRN ×2 (06:46→22:04)
[2017-06-10] MEDS: NICOTINE POLACRILEX 4 MG GUM BUC PRN ×4 (06:47→22:04)
[2017-06-10] MEDS: FERROUS SO4 325 MG TABLET (FP) PO SCH ×3 (07:53→18:07)
[2017-06-10] MEDS: QUEtiapine FUMARATE 100 MG TABLET (FP) PO SCH ×2 (10:29→22:02)
[2017-06-10] MEDS: SERTRALINE HCL 50 MG TABLET (FP) PO SCH (10:29)
[2017-06-10] MEDS: FUROSEMIDE 40 MG TABLET (FP) PO SCH (10:29)
[2017-06-10] MEDS: PRENATAL VITAMINS W/ FOLIC ACID TABLET (FP) PO SCH (10:29)
[2017-06-10] MEDS: METHYL SALICYLATE/MENTHOL OINT 30 GM TUBE TP SCH ×2 (10:30→22:31)
[2017-06-10] MEDS: BUDESONIDE/FORMETEROL FUMARATE 80/4.5 mcg INHALER IH SCH ×2 (10:30→22:31)
[2017-06-10] MEDS: LIDOCAINE 5% TOPICAL PATCH TP SCH (10:30)
[2017-06-10] MEDS: NICOTINE 21 MG/24 HOURS TOPICAL PATCH TD SCH (10:30)
[2017-06-10] MEDS: PSYLLIUM 5.85 GM PACKET PO SCH ×2 (10:32→22:02)
--- NOTE | 2017-06-10 11:50 | PN ---
Psychiatric Progress Note Vital Signs: Vital Signs Period Temp Pulse Resp BP Sys/Duke Pulse Ox Last 24 Hr 97.6 F-98.1 F 71-96 16-18 113-120/75-83 Date of Session: 06/10/17 Chief Complaint:: Discharge visit HPI: Patient addressed Alcohol,Cocaine and Cannabis dependence comorbid with Substance induced mood disorder. ROS: Significant for CHF,Obesity,H/O Gastric bypass. Current Medications: Active Medications Generic Name Dose Route Start Last Admin Trade Name Freq PRN Reason Stop Dose Admin Al Hydroxide/Mg Hydroxide 30 ml 05/28/17 19:42 Mylanta Oral Suspension - PO Q6H PRN DYSPEPSIA Albuterol Sulfate 2 puff 05/28/17 19:43 05/31/17 06:55 Ventolin Hfa Inhaler - IH 2 inh Q4H PRN Administration SHORT OF BREATH/WHEEZING Budesonide/Formoterol Fumarate 2 puff 05/28/17 22:00 06/10/17 10:30 Symbicort 80/4.5mcg - IH 2 puff BID KRISTA Administration Cyclobenzaprine HCl 10 mg 06/03/17 18:41 06/10/17 06:46 Flexeril - PO 10 mg Q8H PRN Administration BACK PAIN Diphenhydramine HCl 25 mg 05/30/17 14:50 Benadryl - PO Q4H PRN FOR ITCHING Diphenhydramine HCl 50 mg 06/05/17 22:00 06/09/17 21:38 Benadryl - PO 50 mg HS KRISTA Administration Docusate Sodium 100 mg 05/30/17 22:00 06/10/17 06:46 Colace - PO 100 mg TID KRISTA Administration Eucalyptus/Menthol/Phenol/Sorbitol 1 each 05/28/17 19:42 Cepastat Lozenge - MM Q4H PRN SORE THROAT Ferrous Sulfate 325 mg 05/30/17 17:30 06/10/17 07:53 Feosol - PO 325 mg TIDCM KRISTA Administration Furosemide 40 mg 06/07/17 15:52 06/10/17 10:29 Lasix - PO 40 mg DAILY KRISTA Administration Guaifenesin 10 ml 05/28/17 19:42 Robitussin Dm - PO Q6H PRN COUGH Hydroxyzine Pamoate 50 mg 05/28/17 19:42 06/10/17 10:34 Vistaril - PO 50 mg Q4H PRN Administration AGITATION Lidocaine 1 patch 05/29/17 14:45 06/10/17 10:30 Lidoderm Patch - TP 1 patch DAILY KRISTA Administration Loperamide HCl 4 mg 05/28/17 19:42 Imodium - PO Q6H PRN DIARRHEA Magnesium Citrate 300 ml 05/28/17 19:42 06/09/17 16:45 Citroma - PO 300 ml Q48H PRN Administration CONSTIPATION Magnesium Hydroxide 30 ml 05/28/17 19:42 Milk Of Magnesia - PO DAILY PRN CONSTIPATION Methyl Salicylate 1 applic 05/29/17 22:00 06/10/17 10:30 Kartik-Gary - TP Not Given BID KRISTA Miscellaneous 1 each 05/29/17 22:00 06/09/17 21:53 Lidoderm Patch Removal MC Not Given DAILY@2200 KRISTA Nicotine 21 mg 05/29/17 10:00 06/10/17 10:30 Nicoderm Patch - TD 21 mg DAILY KRISTA Administration Nicotine Polacrilex 4 mg 05/28/17 19:42 06/10/17 10:34 Nicorette Gum - BUC 4 mg Q2H PRN Administration NICOTINE REPLACEMENT RX Multivit/Folic Acid/Iron 1 tab 05/29/17 10:00 06/10/17 10:29 Vitamins (Sjr) - PO 1 tab DAILY KRISTA Administration Pseudoephedrine/Triprolidine 1 combo 05/28/17 19:42 Actifed - PO TID PRN NASAL CONGESTION Psyllium Hydrophilic Mucilloid 5.85 gm 05/30/17 22:00 06/10/17 10:32 Metamucil (Sugar-Free) - PO Not Given BID KRISTA Quetiapine Fumarate 100 mg 06/07/17 22:00 06/10/17 10:29 Seroquel - PO 100 mg BID KRISTA Administration Risperidone 1 mg 06/07/17 17:06 06/08/17 21:35 Risperdal - PO 1 mg TID PRN Administration AGITATION Sertraline HCl 50 mg 05/29/17 13:30 06/10/17 10:29 Zoloft - PO 50 mg DAILY KRISTA Administration Thiamine HCl 100 mg 05/28/17 22:00 06/09/17 21:38 Vitamin B1 - PO 100 mg HS KRISTA Administration Trazodone HCl 100 mg 06/05/17 22:00 06/09/17 21:38 Desyrel - PO 100 mg HS KRISTA Administration Current Side Effect: No Lab tests ordered: No Lab tests reviewed: Yes Provider note:: Patient will complete this program tomorrow 06/11/17.She has met her treatment goals and will continue to address her issues on outpatient basis at [facility].patient reports finding that Serqouel 100 mg po hs,Trazodone 100 mg po hs,Risperidone 1 mg po tid and Zoft 50 mg po daily help to cope with depression,anxiety,mood swing , insomnia.Scripts for 30 days supply provided. Supportive therapy , psychoeducation provided.patient identifies areas of difficulties and ways, skills to utilize to maintain recovery. Patient is stable fordischarge tomorrow 06/11/17. Total face to face time:: 30 Mental Status Exam - Mental Status Exam Alert and Oriented to: Time, Place, Person Cognitive Function: Grossly Intact Patient Appearance: Well Groomed Mood: Hopeful, Euthymic Affect: Appropriate, Mood Congruent Patient Behavior: Appropriate, Cooperative Speech Pattern: Clear Voice Loudness: Normal Thought Process: Goal Oriented Thought Disorder: Not Present Hallucinations: Denies Suicidal Ideation: Denies Homicidal Ideation: Denies Insight/Judgement: Fair Sleep: Fair Appetite: Good Muscle strength/Tone: Normal Gait/Station: Normal Psychiatric Treatment Plan - Problem List (1) Nicotine dependence Current Visit: Yes Qualifiers: Nicotine product type: cigarettes Substance use status: in withdrawal Qualified Code(s): F17.213 - Nicotine dependence, cigarettes, with withdrawal; F17.213 - Nicotine dependence, cigarettes, with withdrawal (2) Asthma Current Visit: Yes Qualifiers: Asthma severity: mild intermittent Asthma complication type: with status asthmaticus (3) CHF (congestive heart failure) Current Visit: Yes Qualifiers: Congestive heart failure type: systolic Congestive heart failure chronicity: chronic Qualified Code(s): I50.22 - Chronic systolic ( congestive) heart failure; I50.22 - Chronic systolic (congestive) heart failure ; I50.22 - Chronic systolic (congestive) heart failure; I50.22 - Chronic systolic (congestive) heart failure (4) Obesity (BMI 30.0-34.9) Current Visit: Yes (5) H/O gastric bypass Current Visit: Yes (6) Cannabis dependence Current Visit: Yes (7) Cocaine dependence Current Visit: Yes Qualifiers: Substance use status: uncomplicated Qualified Code(s): F14.20 - Cocaine dependence, uncomplicated; F14.20 - Cocaine dependence, uncomplicated; F14.20 - Cocaine dependence, uncomplicated (8) Drug-induced mood disorder Current Visit: Yes (9) Alcohol dependence Current Visit: Yes
[2017-06-10] MEDS: THIAMINE HCL 100 MG TABLET (FP) PO SCH (22:02)
[2017-06-10] MEDS: traZODone HCL 100 MG TABLET (FP) PO SCH (22:02)
[2017-06-10] MEDS: diphenhydrAMINE HCL 50 MG CAPSULE PO SCH (22:02)
[2017-06-10] MEDS: LIDOCAINE PATCH REMOVAL MC SCH (22:31)
[2017-06-11] MEDS: hydrOXYzine PAMOATE 50 MG CAPSULE (FP) PO PRN (06:23)
[2017-06-11] MEDS: CYCLOBENZAPRINE HCL 10 MG TABLET (FP) PO PRN (06:23)
[2017-06-11] MEDS: DOCUSATE SODIUM 100 MG CAPSULE (FP) PO SCH (06:23)
[2017-06-11] MEDS: NICOTINE POLACRILEX 4 MG GUM BUC PRN (06:24)
[2017-06-11 07:00] VITALS: TEMP 98.2
[2017-06-11] MEDS: FERROUS SO4 325 MG TABLET (FP) PO SCH (07:20)
[2017-06-11] MEDS: NICOTINE 21 MG/24 HOURS TOPICAL PATCH TD SCH (09:05)
[2017-06-11] MEDS: SERTRALINE HCL 50 MG TABLET (FP) PO SCH (09:06)
[2017-06-11] MEDS: FUROSEMIDE 40 MG TABLET (FP) PO SCH (09:06)
[2017-06-11] MEDS: QUEtiapine FUMARATE 100 MG TABLET (FP) PO SCH (09:06)
[2017-06-11] MEDS: PRENATAL VITAMINS W/ FOLIC ACID TABLET (FP) PO SCH (09:06)
[2017-06-11] MEDS: BUDESONIDE/FORMETEROL FUMARATE 80/4.5 mcg INHALER IH SCH (09:07)
[2017-06-11] MEDS: LIDOCAINE 5% TOPICAL PATCH TP SCH (09:07)
[2017-06-11] MEDS: METHYL SALICYLATE/MENTHOL OINT 30 GM TUBE TP SCH (09:08)
[2017-06-11] MEDS: PSYLLIUM 5.85 GM PACKET PO SCH (09:08)
[2017-06-11 09:51] VITALS: BP 121/69; PULSE 85
== END 2017-06-11 10:00 | disposition home or self-care (01) | DRG 772 ==
LOC: YASAS 15:00 → Y3E 18:23
PROVIDERS: ADMIT Psychiatry & Neurology Psychiatry; ATTEND Psychiatry & Neurology Psychiatry
PROC: HZ42ZZZ Group Counseling for Substance Abuse Treatment, Cognitive-Behavioral (ICD-10-PCS; principal; 2017-05-28)
DX: F10.20 Alcohol dependence, uncomplicated (principal); F14.20 Cocaine dependence, uncomplicated; F12.20 Cannabis dependence, uncomplicated; F17.213 Nicotine dependence, cigarettes, with withdrawal; I50.22 Chronic systolic (congestive) heart failure; J45.22 Mild intermittent asthma with status asthmaticus; F19.282 Other psychoactive substance dependence with psychoactive substance-induced sleep disorder; E66.9 Obesity, unspecified; Z68.33 Body mass index [BMI] 33.0-33.9, adult; F32.9 Major depressive disorder, single episode, unspecified; Z98.84 Bariatric surgery status
CPT/HCPCS: 36415; 80048; 81003; 85027; 93005; 93010; J2794

== ENCOUNTER 2017-10-30 08:11 | Inpatient (IN) | payer OTHER ==
[2017-10-30 11:02] VITALS: BMI 33.3
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
[2017-10-30] MEDS ORDERED: MAG HYDROX/AL HYDROX/SIMETH 30 ML UNIT-DOSE CUP PO PRN (11:44)
[2017-10-30] MEDS ORDERED: MENTHOL/PHENOL 1 EACH UD MM PRN (11:44)
[2017-10-30] MEDS ORDERED: LOPERAMIDE HCL 2 MG CAPSULE PO PRN (11:44)
[2017-10-30] MEDS ORDERED: IBUPROFEN 400 MG TABLET (FP) PO PRN (11:44)
[2017-10-30] MEDS ORDERED: P-EPHED 60MG/TRIPROLIDI 2.5MG TABLET PO PRN (11:44)
[2017-10-30] MEDS ORDERED: MAGNESIUM HYDROX 2400MG/30ML ORAL SUSPENSION 30 ML CUP PO PRN (11:44)
[2017-10-30] MEDS ORDERED: chlordiazePOXIDE HCL 25 MG CAPSULE PO PRN (11:44)
[2017-10-30] MEDS ORDERED: ACETAMINOPHEN 325 MG TABLET (FP) PO PRN (11:44)
[2017-10-30] MEDS ORDERED: MAGNESIUM CITRATE 300 ML BOTTLE PO PRN (11:44)
[2017-10-30] MEDS ORDERED: guaiFENesin/D-METHORPHAN HB 10 ML UNIT-DOSE CUPS PO PRN (11:44)
[2017-10-30] MEDS ORDERED: ALBUTEROL SO4 18 GM HFA INHALER IH PRN (11:45)
[2017-10-30] MEDS ORDERED: chlordiazePOXIDE HCL 25 MG CAPSULE PO ONE (14:30)
[2017-10-30] MEDS: DOCUSATE SODIUM 100 MG CAPSULE (FP) PO SCH ×2 (14:31→22:30)
[2017-10-30] MEDS: BUDESONIDE/FORMETEROL FUMARATE 80/4.5 mcg INHALER IH SCH ×2 (14:31→22:31)
[2017-10-30] MEDS: FUROSEMIDE 40 MG TABLET (FP) PO SCH ×3 (15:00→22:35)
[2017-10-30] MEDS: NICOTINE 21 MG/24 HOURS TOPICAL PATCH TD SCH ×2 (15:00→15:25)
[2017-10-30] MEDS: NICOTINE POLACRILEX 4 MG GUM BC PRN ×2 (15:23→19:42)
[2017-10-30] MEDS: FERROUS SO4 325 MG TABLET (FP) PO SCH (17:17)
[2017-10-30] MEDS: chlordiazePOXIDE HCL 25 MG CAPSULE PO SCH ×2 (17:18→22:30)
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
[2017-10-30] MEDS ORDERED: CYCLOBENZAPRINE HCL 5 MG TABLET PO PRN (20:34)
--- NOTE | 2017-10-30 20:36 | PN ---
[facility] Progress Note Note: Patient c/o of back pain No apparent distress Flexeril 5mg PRN Continue detox Continue to monitor
[2017-10-30] MEDS ORDERED: traZODone HCL 100 MG TABLET (FP) PO SCH (22:00)
[2017-10-30] MEDS ORDERED: QUEtiapine FUMARATE 100 MG TABLET (FP) PO SCH (22:00)
[2017-10-30] MEDS: diphenhydrAMINE HCL 50 MG CAPSULE PO SCH (22:29)
[2017-10-30] MEDS: QUEtiapine FUMARATE 50 MG TABLET PO SCH (22:31)
[2017-10-30] MEDS: THIAMINE HCL 100 MG TABLET (FP) PO SCH (22:31)
[2017-10-31 00:02] LABS: URINE APPEARANCE CLEAR; URINE BILIRUBIN NEGATIVE (NEGATIVE); URINE BLOOD 3+ (NEGATIVE); URINE COLOR DKYELLOW; URINE GLUCOSE (UA) NEGATIVE (NEGATIVE); URINE KETONE NEGATIVE (NEGATIVE); URINE LEUK ESTERASE NEGATIVE (NEGATIVE); URINE NITRITE NEGATIVE (NEGATIVE); URINE PROTEIN NEGATIVE (NEGATIVE); URINE UROBILINOGEN 4.0 E.U/dl mg/dL (0.2-1.0)
[2017-10-31 00:04] LABS: EPI CELLS RARE /HPF (FEW); URINE MUCUS MANY
[2017-10-31] MEDS: chlordiazePOXIDE HCL 25 MG CAPSULE PO SCH ×4 (06:55→22:25)
[2017-10-31] MEDS: FERROUS SO4 325 MG TABLET (FP) PO SCH ×2 (08:50→17:11)
[2017-10-31] MEDS ORDERED: LIDOCAINE 5% TOPICAL PATCH TP ONE (10:05)
[2017-10-31 10:10] LABS: HEMATOCRIT 28.8 % (32.4-45.2); HEMOGLOBIN 8.6 GM/dL (10.7-15.3); MCH 21.4 pg (25.7-33.7); MCHC 29.9 g/dl (32.0-36.0); MEAN CELL VOLUME 71.7 fl (80-96); MEAN PLT VOLUME 8.8 fl (7.5-11.1); PLATELET COUNT 294 K/MM3 (134-434); RBC 4.01 M/mm3 (3.60-5.2); RDW 21.2 % (11.6-15.6); WHITE BLOOD COUNT 9.4 K/mm3 (4.0-10.0)
[2017-10-31 10:14] LABS: ALBUMIN 3.4 g/dl (3.4-5.0); ANION GAP 7 (8-16); BLOOD UREA NITROGEN 9 mg/dL (7-18); CALCIUM 7.7 mg/dL (8.5-10.1); CHLORIDE 107 mmol/L (98-107); CO2 25 mmol/L (21-32); GLUCOSE,RANDOM 110 mg/dL (74-106); POTASSIUM 4.4 mmol/L (3.5-5.1); SODIUM 139 mmol/L (136-145)
[2017-10-31 10:19] LABS: ALK PHOS 84 U/L (45-117); BILIRUBIN,TOTAL 0.4 mg/dL (0.2-1.0); CREATININE 0.9 mg/dL (0.55-1.02); SGOT/AST 43 U/L (15-37); SGPT/ALT 37 U/L (12-78); TOT PROT 7.1 g/dl (6.4-8.2)
[2017-10-31] MEDS: DOCUSATE SODIUM 100 MG CAPSULE (FP) PO SCH ×2 (10:50→22:25)
[2017-10-31] MEDS: PRENATAL VITAMINS W/ FOLIC ACID TABLET (FP) PO SCH (10:50)
[2017-10-31] MEDS: CYCLOBENZAPRINE HCL 10 MG TABLET (FP) PO PRN ×2 (10:50→22:25)
[2017-10-31] MEDS: SERTRALINE HCL 50 MG TABLET (FP) PO SCH (10:50)
[2017-10-31] MEDS: BUDESONIDE/FORMETEROL FUMARATE 80/4.5 mcg INHALER IH SCH ×2 (10:52→22:24)
[2017-10-31] MEDS: NICOTINE POLACRILEX 4 MG GUM BC PRN (10:53)
[2017-10-31] MEDS: NICOTINE 21 MG/24 HOURS TOPICAL PATCH TD SCH (10:53)
[2017-10-31] MEDS: FUROSEMIDE 40 MG TABLET (FP) PO SCH ×2 (11:00→22:25)
--- NOTE | 2017-10-31 12:35 | PN ---
S CIWA - CIWA Score Nausea/Vomitin-No Nausea/No Vomiting Muscle Tremors: 4-Moderate,w/Arms Extend Anxiety: 3 Agitation: 4-Moderately Restless Paroxysmal Sweats: 3 Orientation: 0-Oriented Tacttile Disturbances: 0-None Auditory Disturbances: 0-None Visual Disturbances: 0-None Headache: 0-None Present CIWA-Ar Total Score: 14 [facility] Progress Note (SOAP) Subjective: back ache sweats I need ensure because of my gastric bypass the foods here are not agreeing with me Objective: 10/31/17 12:33 Vital Signs Temperature 97.1 F L 10/31/17 06:27 Pulse Rate 86 10/31/17 09:59 Respiratory Rate 18 10/31/17 09:59 Blood Pressure 129/79 10/31/17 09:59 O2 Sat by Pulse Oximetry (%) Laboratory Tests 10/30/17 10/31/17 10/31/17 23:50 07:00 07:00 WBC 9.4 D RBC 4.01 Hgb 8.6 L Hct 28.8 L MCV 71.7 L MCH 21.4 L MCHC 29.9 L RDW 21.2 H D Plt Count 294 MPV 8.8 Sodium 139 Potassium 4.4 Chloride 107 Carbon Dioxide 25 Anion Gap 7 L BUN 9 Creatinine 0.9 Creat Clearance w eGFR > 60 Random Glucose 110 H Calcium 7.7 L Total Bilirubin 0.4 AST 43 H ALT 37 Alkaline Phosphatase 84 Total Protein 7.1 Albumin 3.4 Urine Color Dkyellow Urine Appearance Clear Urine pH 5.0 Ur Specific [place] 1.024 Urine Protein Negative Urine Glucose (UA) Negative Urine Ketones Negative Urine Blood 3+ H Urine Nitrite Negative Urine Bilirubin Negative Urine Urobilinogen 4.0 e.u/dl H Ur Leukocyte Esterase Negative Urine WBC (Auto) 2 Urine RBC (Auto) 3 Ur Epithelial Cells Rare Urine Mucus Many aaox3 ambulating no acute distress Assessment: 10/31/17 12:34 withdrawal sx Plan: continue detox increase fluids ensure plus tid dietary nurse consultant ordered
--- NOTE | 2017-10-31 16:13 | EKG ---
Test Reason : Blood Pressure : / mmHG Vent. Rate : 076 BPM Atrial Rate : 076 BPM P-R Int : 146 ms QRS Dur : 114 ms QT Int : 388 ms P-R-T Axes : 048 025 038 degrees QTc Int : 436 ms NORMAL SINUS RHYTHM NORMAL ECG WHEN COMPARED WITH ECG OF 28-MAY-2017 22:56, NO SIGNIFICANT CHANGE WAS FOUND Confirmed by TRENT LEUNG MD ([id number]) on 10/31/2017 4:13:32 PM Referred By: Confirmed By:TRENT LEUNG MD
[2017-10-31] MEDS: QUEtiapine FUMARATE 50 MG TABLET PO SCH (22:25)
[2017-10-31] MEDS: ZOLPIDEM TARTRATE 10 MG TABLET (PARK CARE ONLY) PO PRN (22:25)
[2017-10-31] MEDS: diphenhydrAMINE HCL 50 MG CAPSULE PO SCH (22:46)
[2017-10-31] MEDS: LIDOCAINE PATCH REMOVAL MC SCH (22:46)
[2017-10-31] MEDS: THIAMINE HCL 100 MG TABLET (FP) PO SCH (23:02)
[2017-11-01] MEDS: chlordiazePOXIDE HCL 25 MG CAPSULE PO SCH ×2 (06:00→10:57)
[2017-11-01] MEDS: CYCLOBENZAPRINE HCL 10 MG TABLET (FP) PO PRN ×4 (06:40→23:03)
[2017-11-01] MEDS: FERROUS SO4 325 MG TABLET (FP) PO SCH ×2 (08:46→16:42)
[2017-11-01] MEDS ORDERED: LIDOCAINE 5% TOPICAL PATCH TP SCH (10:00)
[2017-11-01] MEDS: DOCUSATE SODIUM 100 MG CAPSULE (FP) PO SCH ×3 (10:56→23:03)
[2017-11-01] MEDS: NICOTINE 21 MG/24 HOURS TOPICAL PATCH TD SCH (10:56)
[2017-11-01] MEDS: FUROSEMIDE 40 MG TABLET (FP) PO SCH ×3 (10:56→23:04)
[2017-11-01] MEDS: BUDESONIDE/FORMETEROL FUMARATE 80/4.5 mcg INHALER IH SCH ×2 (10:57→22:53)
[2017-11-01] MEDS: SERTRALINE HCL 50 MG TABLET (FP) PO SCH (10:57)
[2017-11-01] MEDS: PRENATAL VITAMINS W/ FOLIC ACID TABLET (FP) PO SCH (10:57)
--- NOTE | 2017-11-01 11:05 | PN ---
[facility] CIWA - CIWA Score Nausea/Vomitin-No Nausea/No Vomiting Muscle Tremors: 4-Moderate,w/Arms Extend Anxiety: 2 Agitation: 3 Paroxysmal Sweats: 2 Orientation: 0-Oriented Tacttile Disturbances: 0-None Auditory Disturbances: 0-None Visual Disturbances: 0-None Headache: 0-None Present CIWA-Ar Total Score: 11 [facility] Progress Note (SOAP) Subjective: agitation sweats anxiety back ache Objective: 11/01/17 11:04 Vital Signs Temperature 98.1 F 11/01/17 07:07 Pulse Rate 66 11/01/17 07:07 Respiratory Rate 18 11/01/17 07:07 Blood Pressure 106/60 11/01/17 07:07 O2 Sat by Pulse Oximetry (%) Laboratory Tests 10/30/17 10/31/17 10/31/17 23:50 07:00 07:00 WBC 9.4 D RBC 4.01 Hgb 8.6 L Hct 28.8 L MCV 71.7 L MCH 21.4 L MCHC 29.9 L RDW 21.2 H D Plt Count 294 MPV 8.8 Sodium 139 Potassium 4.4 Chloride 107 Carbon Dioxide 25 Anion Gap 7 L BUN 9 Creatinine 0.9 Creat Clearance w eGFR > 60 Random Glucose 110 H Calcium 7.7 L Total Bilirubin 0.4 AST 43 H ALT 37 Alkaline Phosphatase 84 Total Protein 7.1 Albumin 3.4 Urine Color Dkyellow Urine Appearance Clear Urine pH 5.0 Ur Specific [place] 1.024 Urine Protein Negative Urine Glucose (UA) Negative Urine Ketones Negative Urine Blood 3+ H Urine Nitrite Negative Urine Bilirubin Negative Urine Urobilinogen 4.0 e.u/dl H Ur Leukocyte Esterase Negative Urine WBC (Auto) 2 Urine RBC (Auto) 3 Ur Epithelial Cells Rare Urine Mucus Many RPR Titer 10/31/17 07:00 WBC RBC Hgb Hct MCV MCH MCHC RDW Plt Count MPV Sodium Potassium Chloride Carbon Dioxide Anion Gap BUN Creatinine Creat Clearance w eGFR Random Glucose Calcium Total Bilirubin AST ALT Alkaline Phosphatase Total Protein Albumin Urine Color Urine Appearance Urine pH Ur Specific [place] Urine Protein Urine Glucose (UA) Urine Ketones Urine Blood Urine Nitrite Urine Bilirubin Urine Urobilinogen Ur Leukocyte Esterase Urine WBC (Auto) Urine RBC (Auto) Ur Epithelial Cells Urine Mucus RPR Titer Nonreactive aaox3 ambulating no acute distress Assessment: 11/01/17 11:04 withdrawal sx Plan: continue detox increase fluids
[2017-11-01] MEDS: NICOTINE POLACRILEX 4 MG GUM BC PRN (11:37)
[2017-11-01] MEDS: hydrOXYzine PAMOATE 50 MG CAPSULE (FP) PO PRN (12:35)
[2017-11-01] MEDS: chlordiazePOXIDE 5 MG CAPSULE PO SCH ×3 (16:43→23:02)
--- NOTE | 2017-11-01 19:12 | PN ---
S Progress Note Note: Patient c/o of back pain Vital Signs Temperature 98.1 F 11/01/17 18:16 Pulse Rate 109 H 11/01/17 18:16 Respiratory Rate 20 11/01/17 18:16 Blood Pressure 95/57 11/01/17 18:16 O2 Sat by Pulse Oximetry (%) Patient AO x 3 self directing, in no apparent distress Patient removed lidocaine patch in front of underwriter, reports is currently is not working Continue flexeril as previously ordered Continue to monitor
[2017-11-01] MEDS: diphenhydrAMINE HCL 50 MG CAPSULE PO SCH (22:52)
[2017-11-01] MEDS: QUEtiapine FUMARATE 50 MG TABLET PO SCH ×2 (22:53→23:02)
[2017-11-01] MEDS: THIAMINE HCL 100 MG TABLET (FP) PO SCH ×2 (22:53→23:07)
[2017-11-01] MEDS: LIDOCAINE PATCH REMOVAL MC SCH (22:53)
[2017-11-01] MEDS: ZOLPIDEM TARTRATE 10 MG TABLET (PARK CARE ONLY) PO PRN (23:01)
[2017-11-02] MEDS: chlordiazePOXIDE 5 MG CAPSULE PO SCH ×2 (07:15→10:56)
[2017-11-02] MEDS: DOCUSATE SODIUM 100 MG CAPSULE (FP) PO SCH ×2 (10:53→22:41)
[2017-11-02] MEDS: PRENATAL VITAMINS W/ FOLIC ACID TABLET (FP) PO SCH (10:53)
[2017-11-02] MEDS: SERTRALINE HCL 50 MG TABLET (FP) PO SCH (10:53)
[2017-11-02] MEDS: FERROUS SO4 325 MG TABLET (FP) PO SCH ×2 (10:53→17:12)
[2017-11-02] MEDS: FUROSEMIDE 40 MG TABLET (FP) PO SCH ×2 (10:53→22:42)
[2017-11-02] MEDS: NICOTINE 21 MG/24 HOURS TOPICAL PATCH TD SCH (10:53)
[2017-11-02] MEDS: BUDESONIDE/FORMETEROL FUMARATE 80/4.5 mcg INHALER IH SCH ×2 (10:54→22:40)
[2017-11-02] MEDS: CYCLOBENZAPRINE HCL 10 MG TABLET (FP) PO PRN ×2 (10:55→22:41)
[2017-11-02] MEDS: NICOTINE POLACRILEX 4 MG GUM BC PRN (10:59)
--- NOTE | 2017-11-02 16:45 | PN ---
[facility] Progress Note (SOAP) Subjective: back pain sleep disturbance shakes Objective: 11/02/17 16:42 anxious A & O x 3 Vital Signs Temperature 97.5 F L 11/02/17 14:57 Pulse Rate 101 H 11/02/17 14:57 Respiratory Rate 18 11/02/17 14:57 Blood Pressure 137/68 11/02/17 14:57 O2 Sat by Pulse Oximetry (%) Assessment: 11/02/17 16:43 withdrawal sx chronic back pain Plan: continue detox gabapentin for back pain
[2017-11-02] MEDS ORDERED: GABAPENTIN 100 MG CAPSULE (FP) PO ONE (17:00)
[2017-11-02] MEDS: chlordiazePOXIDE HCL 10 MG CAPSULE PO SCH ×2 (17:12→22:41)
[2017-11-02] MEDS: ZOLPIDEM TARTRATE 10 MG TABLET (PARK CARE ONLY) PO PRN (22:41)
[2017-11-02] MEDS: GABAPENTIN 100 MG CAPSULE (FP) PO SCH (22:41)
[2017-11-02] MEDS: THIAMINE HCL 100 MG TABLET (FP) PO SCH (22:41)
[2017-11-02] MEDS: QUEtiapine FUMARATE 50 MG TABLET PO SCH (22:41)
[2017-11-02] MEDS: diphenhydrAMINE HCL 50 MG CAPSULE PO SCH (22:42)
[2017-11-02] MEDS: LIDOCAINE PATCH REMOVAL MC SCH (23:08)
[2017-11-03] MEDS: chlordiazePOXIDE HCL 10 MG CAPSULE PO SCH ×2 (06:14→11:00)
[2017-11-03] MEDS: GABAPENTIN 100 MG CAPSULE (FP) PO SCH ×3 (06:15→22:44)
--- NOTE | 2017-11-03 10:03 | PN ---
[facility] Progress Note (SOAP) Subjective: patient is alert oriented x 3 fear of relapse patient determines to remain drug free anxiousness tremor restlessness Objective: 11/03/17 10:02 Vital Signs Temperature 98.2 F 11/03/17 06:00 Pulse Rate 81 11/03/17 06:00 Respiratory Rate 18 11/03/17 06:00 Blood Pressure 106/59 11/03/17 06:00 O2 Sat by Pulse Oximetry (%) Laboratory Last Values WBC 9.4 K/mm3 (4.0-10.0) D 10/31/17 07:00 RBC 4.01 M/mm3 (3.60-5.2) 10/31/17 07:00 Hgb 8.6 GM/dL (10.7-15.3) L 10/31/17 07:00 Hct 28.8 % (32.4-45.2) L 10/31/17 07:00 MCV 71.7 fl (80-96) L 10/31/17 07:00 MCH 21.4 pg (25.7-33.7) L 10/31/17 07:00 MCHC 29.9 g/dl (32.0-36.0) L 10/31/17 07:00 RDW 21.2 % (11.6-15.6) H D 10/31/17 07:00 Plt Count 294 K/MM3 (134-434) 10/31/17 07:00 MPV 8.8 fl (7.5-11.1) 10/31/17 07:00 Sodium 139 mmol/L (136-145) 10/31/17 07:00 Potassium 4.4 mmol/L (3.5-5.1) 10/31/17 07:00 Chloride 107 mmol/L (98-107) 10/31/17 07:00 Carbon Dioxide 25 mmol/L (21-32) 10/31/17 07:00 Anion Gap 7 (8-16) L 10/31/17 07:00 BUN 9 mg/dL (7-18) 10/31/17 07:00 Creatinine 0.9 mg/dL (0.55-1.02) 10/31/17 07:00 Creat Clearance w eGFR > 60 (>60) 10/31/17 07:00 Random Glucose 110 mg/dL (74-106) H 10/31/17 07:00 Calcium 7.7 mg/dL (8.5-10.1) L 10/31/17 07:00 Total Bilirubin 0.4 mg/dL (0.2-1.0) 10/31/17 07:00 AST 43 U/L (15-37) H 10/31/17 07:00 ALT 37 U/L (12-78) 10/31/17 07:00 Alkaline Phosphatase 84 U/L (45-117) 10/31/17 07:00 Total Protein 7.1 g/dl (6.4-8.2) 10/31/17 07:00 Albumin 3.4 g/dl (3.4-5.0) 10/31/17 07:00 Urine Color Dkyellow 10/30/17 23:50 Urine Appearance Clear 10/30/17 23:50 Urine pH 5.0 (5.0-8.0) 10/30/17 23:50 Ur Specific [place] 1.024 (1.001-1.035) 10/30/17 23:50 Urine Protein Negative (NEGATIVE) 10/30/17 23:50 Urine Glucose (UA) Negative (NEGATIVE) 10/30/17 23:50 Urine Ketones Negative (NEGATIVE) 10/30/17 23:50 Urine Blood 3+ (NEGATIVE) H 10/30/17 23:50 Urine Nitrite Negative (NEGATIVE) 10/30/17 23:50 Urine Bilirubin Negative (NEGATIVE) 10/30/17 23:50 Urine Urobilinogen 4.0 e.u/dl mg/dL (0.2-1.0) H 10/30/17 23:50 Ur Leukocyte Esterase Negative (NEGATIVE) 10/30/17 23:50 Urine WBC (Auto) 2 /hpf (3-5) 10/30/17 23:50 Urine RBC (Auto) 3 /hpf (0-3) 10/30/17 23:50 Ur Epithelial Cells Rare /HPF (FEW) 10/30/17 23:50 Urine Mucus Many 10/30/17 23:50 RPR Titer Nonreactive (NONREACTIVE) 10/31/17 07:00 lab noted Assessment: 11/03/17 10:02 mild withdrawal sx fear of relapse Plan: medically supervised detox aci aftercare sobriety throughout recovery
[2017-11-03] MEDS: FUROSEMIDE 40 MG TABLET (FP) PO SCH ×2 (10:58→22:43)
[2017-11-03] MEDS: PRENATAL VITAMINS W/ FOLIC ACID TABLET (FP) PO SCH (10:58)
[2017-11-03] MEDS: BUDESONIDE/FORMETEROL FUMARATE 80/4.5 mcg INHALER IH SCH ×2 (10:58→22:45)
[2017-11-03] MEDS: SERTRALINE HCL 50 MG TABLET (FP) PO SCH (10:58)
[2017-11-03] MEDS: DOCUSATE SODIUM 100 MG CAPSULE (FP) PO SCH ×2 (10:58→22:44)
[2017-11-03] MEDS: FERROUS SO4 325 MG TABLET (FP) PO SCH ×2 (10:59→16:59)
[2017-11-03] MEDS: NICOTINE 21 MG/24 HOURS TOPICAL PATCH TD SCH (10:59)
[2017-11-03] MEDS: NICOTINE POLACRILEX 4 MG GUM BC PRN ×2 (11:02→22:46)
[2017-11-03] MEDS: CYCLOBENZAPRINE HCL 10 MG TABLET (FP) PO PRN (12:48)
[2017-11-03] MEDS: hydrOXYzine PAMOATE 50 MG CAPSULE (FP) PO PRN (18:38)
[2017-11-03] MEDS ORDERED: diphenhydrAMINE HCL 25 MG CAPSULE (FP) PO ONE (21:14)
[2017-11-03] MEDS: diphenhydrAMINE HCL 50 MG CAPSULE PO SCH (22:44)
[2017-11-03] MEDS: QUEtiapine FUMARATE 50 MG TABLET PO SCH (22:44)
[2017-11-03] MEDS: THIAMINE HCL 100 MG TABLET (FP) PO SCH (22:45)
[2017-11-03] MEDS: LIDOCAINE PATCH REMOVAL MC SCH (23:06)
[2017-11-04] MEDS: hydrOXYzine PAMOATE 50 MG CAPSULE (FP) PO PRN ×2 (03:46→09:19)
[2017-11-04] MEDS: GABAPENTIN 100 MG CAPSULE (FP) PO SCH (06:51)
[2017-11-04] MEDS: FERROUS SO4 325 MG TABLET (FP) PO SCH (08:08)
[2017-11-04] MEDS: FUROSEMIDE 40 MG TABLET (FP) PO SCH (09:16)
[2017-11-04] MEDS: BUDESONIDE/FORMETEROL FUMARATE 80/4.5 mcg INHALER IH SCH (09:16)
[2017-11-04] MEDS: PRENATAL VITAMINS W/ FOLIC ACID TABLET (FP) PO SCH (09:16)
[2017-11-04] MEDS: DOCUSATE SODIUM 100 MG CAPSULE (FP) PO SCH (09:17)
[2017-11-04] MEDS: SERTRALINE HCL 50 MG TABLET (FP) PO SCH (09:17)
--- NOTE | 2017-11-04 09:24 | DS ---
[facility] Detox Discharge Summary Admission Date: 10/30/17 Discharge Date: 11/04/17 - History Present History: Alcohol Dependence - Physical Exam Results Vital Signs: Vital Signs Temperature 98.1 F 11/04/17 07:24 Pulse Rate 18 L 11/04/17 07:24 Respiratory Rate 71 H 11/04/17 07:24 Blood Pressure 90/62 11/04/17 07:24 O2 Sat by Pulse Oximetry (%) Pertinent Admission Physical Exam Findings: withdrawal sx Vital Signs Temperature 98.1 F 11/04/17 07:24 Pulse Rate 18 L 11/04/17 07:24 Respiratory Rate 71 H 11/04/17 07:24 Blood Pressure 90/62 11/04/17 07:24 O2 Sat by Pulse Oximetry (%) Laboratory Last Values WBC 9.4 K/mm3 (4.0-10.0) D 10/31/17 07:00 RBC 4.01 M/mm3 (3.60-5.2) 10/31/17 07:00 Hgb 8.6 GM/dL (10.7-15.3) L 10/31/17 07:00 Hct 28.8 % (32.4-45.2) L 10/31/17 07:00 MCV 71.7 fl (80-96) L 10/31/17 07:00 MCH 21.4 pg (25.7-33.7) L 10/31/17 07:00 MCHC 29.9 g/dl (32.0-36.0) L 10/31/17 07:00 RDW 21.2 % (11.6-15.6) H D 10/31/17 07:00 Plt Count 294 K/MM3 (134-434) 10/31/17 07:00 MPV 8.8 fl (7.5-11.1) 10/31/17 07:00 Sodium 139 mmol/L (136-145) 10/31/17 07:00 Potassium 4.4 mmol/L (3.5-5.1) 10/31/17 07:00 Chloride 107 mmol/L (98-107) 10/31/17 07:00 Carbon Dioxide 25 mmol/L (21-32) 10/31/17 07:00 Anion Gap 7 (8-16) L 10/31/17 07:00 BUN 9 mg/dL (7-18) 10/31/17 07:00 Creatinine 0.9 mg/dL (0.55-1.02) 10/31/17 07:00 Creat Clearance w eGFR > 60 (>60) 10/31/17 07:00 Random Glucose 110 mg/dL (74-106) H 10/31/17 07:00 Calcium 7.7 mg/dL (8.5-10.1) L 10/31/17 07:00 Total Bilirubin 0.4 mg/dL (0.2-1.0) 10/31/17 07:00 AST 43 U/L (15-37) H 10/31/17 07:00 ALT 37 U/L (12-78) 10/31/17 07:00 Alkaline Phosphatase 84 U/L (45-117) 10/31/17 07:00 Total Protein 7.1 g/dl (6.4-8.2) 10/31/17 07:00 Albumin 3.4 g/dl (3.4-5.0) 10/31/17 07:00 Urine Color Dkyellow 10/30/17 23:50 Urine Appearance Clear 10/30/17 23:50 Urine pH 5.0 (5.0-8.0) 10/30/17 23:50 Ur Specific [place] 1.024 (1.001-1.035) 10/30/17 23:50 Urine Protein Negative (NEGATIVE) 10/30/17 23:50 Urine Glucose (UA) Negative (NEGATIVE) 10/30/17 23:50 Urine Ketones Negative (NEGATIVE) 10/30/17 23:50 Urine Blood 3+ (NEGATIVE) H 10/30/17 23:50 Urine Nitrite Negative (NEGATIVE) 10/30/17 23:50 Urine Bilirubin Negative (NEGATIVE) 10/30/17 23:50 Urine Urobilinogen 4.0 e.u/dl mg/dL (0.2-1.0) H 10/30/17 23:50 Ur Leukocyte Esterase Negative (NEGATIVE) 10/30/17 23:50 Urine WBC (Auto) 2 /hpf (3-5) 10/30/17 23:50 Urine RBC (Auto) 3 /hpf (0-3) 10/30/17 23:50 Ur Epithelial Cells Rare /HPF (FEW) 10/30/17 23:50 Urine Mucus Many 10/30/17 23:50 RPR Titer Nonreactive (NONREACTIVE) 10/31/17 07:00 lab noted - Treatment Hospital Course: Detox Protocol Followed, Detoxed Safely, Responded well, Discharged Condition Good, Rehab Referral Accepted Patient has Accepted a Rehab Referral to: [facility] - Medication Discharge Medications: Ambulatory Orders Furosemide [Lasix -] 40 mg PO BID 11/30/14 Zolpidem Tartrate [Ambien] 10 mg PO HS 02/22/16 Diphenhydramine [Benadryl Capsule -] 50 mg PO HS #30 cap 06/10/17 Quetiapine Fumarate [Seroquel] 100 mg PO HS #30 tablet 06/10/17 Sertraline HCl [Zoloft -] 50 mg PO DAILY #30 tablet 06/10/17 traZODone HCL [Desyrel -] 100 mg PO HS #30 tablet 06/10/17 Docusate Sodium [Colace -] 100 mg PO BID #60 cap 06/11/17 Ferrous Sulfate [Feosol] 325 mg PO BID #60 tab 06/11/17 Fluticasone/Salmeterol [Advair 250-50 Diskus] 1 each IH BID #1 inh 06/11/17 Risperidone [Risperdal -] 1 mg PO TID 10/30/17 Albuterol Sulfate Inhaler - [Ventolin HFA Inhaler -] 2 inh PO Q4H PRN #1 inh - Diagnosis (1) Alcohol dependence with uncomplicated withdrawal Current Visit: Yes Status: Acute (2) Asthma Current Visit: Yes Status: Chronic Qualifiers: Asthma severity: mild Asthma complication type: with status asthmaticus (3) CHF (congestive heart failure) Current Visit: Yes Status: Chronic - AMA Did Patient Leave Against Medical Advice: No
[2017-11-04] MEDS: NICOTINE 21 MG/24 HOURS TOPICAL PATCH TD SCH (10:52)
[2017-11-04 11:22] VITALS: BP 103/60; PULSE 86; TEMP 97.9
== END 2017-11-04 09:37 | disposition home or self-care (01) | DRG 774 ==
LOC: YASAS 08:11 → Y6N 13:39
PROVIDERS: ADMIT Internal Medicine; ATTEND Internal Medicine
PROC: HZ2ZZZZ Detoxification Services for Substance Abuse Treatment (ICD-10-PCS; principal; 2017-10-30)
DX: F10.230 Alcohol dependence with withdrawal, uncomplicated (principal); F14.20 Cocaine dependence, uncomplicated; F19.24 Other psychoactive substance dependence with psychoactive substance-induced mood disorder; F19.282 Other psychoactive substance dependence with psychoactive substance-induced sleep disorder; I50.9 Heart failure, unspecified; J45.909 Unspecified asthma, uncomplicated
CPT/HCPCS: 36415; 80053; 81003; 81015; 85027; 86593; 93005; 93010

== ENCOUNTER 2020-12-22 18:26 | Emergency (ER) | payer OTHER ==
[2020-12-22 18:38] VITALS: BMI 33.3
[2020-12-22] MEDS ORDERED: ONDANSETRON 4 MG/2 ML VIAL IVPUSH ONE (19:52)
[2020-12-22] MEDS ORDERED: morphine CARPU-JECT 4 MG/1 ML DISP.SYRIN IVPUSH ONE (19:52)
[2020-12-22] MEDS ORDERED: SODIUM CHLORIDE 1,000 ML IV STA (19:52)
[2020-12-22] MEDS ORDERED: ONDANSETRON 4 MG/2 ML VIAL ONE (20:11)
[2020-12-22] MEDS ORDERED: morphine SULFATE 4 MG/ML VIAL ONE (20:11)
[2020-12-22 20:39] LABS: BASO % 1.1 % (0-2.0); EOS % 0.9 % (0-4.5); HEMOGLOBIN 10.2 GM/dL (10.7-15.3); LYMPH % 26.6 % (8-40); MCH 24.5 pg (25.7-33.7); MCHC 31.9 g/dl (32.0-36.0); MEAN CELL VOLUME 76.7 fl (80-96); MEAN PLT VOLUME 8.3 fl (7.5-11.1); MONO % 13.6 % (3.8-10.2); NEUT % 57.8 % (42.8-82.8); PH,URINE 5.5 (5.0-8.0); PLATELET COUNT 272 K/MM3 (134-434); RBC 4.16 M/mm3 (3.60-5.2); RDW 19.1 % (11.6-15.6); URINE APPEARANCE CLOUDY; URINE BILIRUBIN NEGATIVE (NEGATIVE); URINE COLOR YELLOW; URINE GLUCOSE (UA) NEGATIVE (NEGATIVE); URINE KETONE 2+ (NEGATIVE); URINE LEUK ESTERASE NEGATIVE (NEGATIVE); URINE NITRITE NEGATIVE (NEGATIVE); URINE PROTEIN NEGATIVE (NEGATIVE); WHITE BLOOD COUNT 8.8 K/mm3 (4.0-10.0)
[2020-12-22 20:42] LABS: HCG,QUALITATIVE URINE Negative
[2020-12-22 20:55] LABS: CALCIUM 8.6 mg/dL (8.5-10.1)
[2020-12-22 20:56] LABS: ALBUMIN 3.5 g/dl (3.4-5.0)
[2020-12-22 20:59] LABS: CREATININE 0.8 mg/dL (0.55-1.3)
[2020-12-22 21:00] LABS: BILIRUBIN,TOTAL 0.6 mg/dL (0.2-1); TOT PROT 7.6 g/dl (6.4-8.2)
[2020-12-23 00:05] VITALS: BP 141/69; PULSE 62; TEMP 98.4
[2020-12-23] MEDS ORDERED: ACETAMINOPHEN 500 MG TABLET (FP) PO ONE (01:47)
[2020-12-23] MEDS ORDERED: ACETAMINOPHEN 500 MG TABLET (FP) ONE (01:50)
== END 2020-12-23 02:18 | disposition home or self-care (01) ==
LOC: JER 18:26
PROC: 3E033NZ Introduction of Analgesics, Hypnotics, Sedatives into Peripheral Vein, Percutaneous Approach (ICD-10-PCS; principal; 2020-12-22)
PROC: 3E033GC Introduction of Other Therapeutic Substance into Peripheral Vein, Percutaneous Approach (ICD-10-PCS; 2020-12-22)
PROC: 3E0337Z Introduction of Electrolytic and Water Balance Substance into Peripheral Vein, Percutaneous Approach (ICD-10-PCS; 2020-12-22)
DX: R10.31 Right lower quadrant pain (principal)
CPT/HCPCS: 36415; 74177-TC; 80053; 81003; 83690; 84703; 85025; 86850; 86900; 86901; 87086; 99285-25; Q9967

== ENCOUNTER 2022-10-12 12:37 | Observation (INO) | payer OTHER ==
[2022-10-12 12:52] VITALS: BMI 31.6
[2022-10-12] MEDS ORDERED: ACETAMINOPHEN 325 MG TABLET (FP) PO ONE (14:07)
[2022-10-12] MEDS ORDERED: ACETAMINOPHEN 1000 MG/100 ML BAG IVPB ONE (14:13)
[2022-10-12] MEDS ORDERED: morphine CARPU-JECT 4 MG/1 ML DISP.SYRIN IVPUSH ONE ×2 (14:14→18:53)
[2022-10-12] MEDS ORDERED: ONDANSETRON 4 MG/2 ML VIAL IVPUSH ONE (14:18)
[2022-10-12] MEDS ORDERED: ONDANSETRON 4 MG/2 ML VIAL ONE ×2 (14:20→22:18)
[2022-10-12] MEDS ORDERED: ACETAMINOPHEN INJECTION 100 ML IVPB ONE ×2 (14:20→23:46)
[2022-10-12] MEDS ORDERED: morphine SULFATE 4 MG/ML VIAL ONE ×2 (14:21→18:57)
[2022-10-12 15:37] LABS: BASO % 0.8 % (0-2.0); EOS % 0.1 % (0-4.5); HEMATOCRIT 31.7 % (32.4-45.2); HEMOGLOBIN 9.9 GM/dL (10.7-15.3); LYMPH % 17.6 % (8-40); MCH 23.9 pg (25.7-33.7); MCHC 31.3 g/dl (32.0-36.0); MEAN CELL VOLUME 76.2 fl (80-96); MEAN PLT VOLUME 7.8 fl (7.5-11.1); MONO % 7.4 % (3.8-10.2); NEUT % 74.1 % (42.8-82.8); PLATELET COUNT 201 10^3/uL (134-434); RBC 4.16 M/mm3 (3.60-5.2); RDW 19.9 % (11.6-15.6); WHITE BLOOD COUNT 7.1 K/mm3 (4.0-10.0)
[2022-10-12 15:38] LABS: EPI CELLS 17 /uL (0-25.1); HYALINE CASTS 0 /uL (0-3.1); URINE APPEARANCE CLEAR; URINE BACTERIA 112 /uL (0-1359); URINE BILIRUBIN NEGATIVE (NEGATIVE); URINE COLOR YELLOW; URINE GLUCOSE (UA) NEGATIVE (NEGATIVE); URINE KETONE 1+ (NEGATIVE); URINE LEUK ESTERASE NEGATIVE (NEGATIVE); URINE NITRITE NEGATIVE (NEGATIVE); URINE PROTEIN NEGATIVE (NEGATIVE); URINE RBC 14 /uL (0-23.9); URINE WBC 2 /uL (0-25.8)
[2022-10-12 15:42] LABS: INR 0.95 (0.83-1.09)
[2022-10-12 15:45] LABS: ACTIVATED PTT 30.1 SECONDS (25.2-36.5)
[2022-10-12 16:03] LABS: ALBUMIN 3.7 g/dl (3.4-5.0); CALCIUM 8.7 mg/dL (8.5-10.1)
[2022-10-12 16:06] LABS: CREATININE 0.7 mg/dL (0.55-1.3)
[2022-10-12 16:08] LABS: BILIRUBIN,TOTAL 0.6 mg/dL (0.2-1); TOT PROT 7.5 g/dl (6.4-8.2)
[2022-10-12 16:09] LABS: N-TERMINAL BNP 104.6 pg/ml (5-125)
[2022-10-12] MEDS ORDERED: METOCLOPRAMIDE HCL INJECTION 10 MG/2 ML VIAL IVPUSH ONE (18:56)
[2022-10-12] MEDS ORDERED: METOCLOPRAMIDE HCL INJECTION 10 MG/2 ML VIAL ONE (18:59)
[2022-10-12] MEDS ORDERED: oxyCODONE HCL 5 MG TABLET ONE (21:10)
[2022-10-12] MEDS ORDERED: ALBUTEROL SO4 HFA INHALER IH PRN (21:22)
[2022-10-12] MEDS ORDERED: DOCUSATE SODIUM 100 MG CAPSULE (FP) PO ONE (21:58)
[2022-10-12] MEDS ORDERED: FUROSEMIDE 40 MG TABLET (FP) ONE (21:58)
[2022-10-12] MEDS ORDERED: oxyCODONE HCL 5 MG TABLET PO ONE (22:00)
[2022-10-12] MEDS: FUROSEMIDE 40 MG TABLET (FP) PO SCH (22:03)
[2022-10-12] MEDS: DOCUSATE SODIUM 100 MG CAPSULE (FP) PO SCH (22:03)
[2022-10-12] MEDS: BUDESONIDE/FORMETEROL FUMARATE 80/4.5 mcg INHALER IH SCH (22:26)
[2022-10-12] MEDS: traZODone HCL 100 MG TABLET (FP) PO SCH (22:26)
[2022-10-12] MEDS ORDERED: ZOLPIDEM TARTRATE 5 MG TABLET PO PRN (22:52)
[2022-10-12] MEDS ORDERED: ZOLPIDEM TARTRATE 5 MG TABLET ONE (23:49)
[2022-10-12] MEDS: ACETAMINOPHEN 1000 MG/100 ML BAG IVPB PRN (23:51)
[2022-10-13 00:46] LABS: PHENCYCLIDINE,URINE NEGATIVE (NEGATIVE)
[2022-10-13 00:47] LABS: COCAINE, UR NEGATIVE (NEGATIVE); METHADONE, UR NEGATIVE (NEGATIVE); OPIATES, URI NEGATIVE (NEGATIVE); URINE BENZODIAZEPINES NEGATIVE (NEGATIVE)
[2022-10-13 00:50] LABS: URINE AMPHETAMINES NEGATIVE (NEGATIVE); URINE BARBITURATES NEGATIVE (NEGATIVE)
[2022-10-13] MEDS ORDERED: MELATONIN 5 MG TABLETS PO ONE (02:02)
[2022-10-13] MEDS ORDERED: ONDANSETRON 4 MG/2 ML VIAL IVPUSH PRN (02:23)
[2022-10-13] MEDS ORDERED: traMADol HCL 50 MG TABLET PO ONE (06:16)
[2022-10-13] MEDS: FUROSEMIDE 40 MG TABLET (FP) PO SCH (06:42)
[2022-10-13] MEDS ORDERED: amLODIPine BESYLATE 5 MG TABLET (FP) PO ONE (06:55)
[2022-10-13] MEDS: SERTRALINE HCL 50 MG TABLET (FP) PO SCH ×2 (09:46→09:54)
[2022-10-13] MEDS: POLYETHYLENE GLYCOL (HEALTHYLAX) 3350 17 GM PACKET PO SCH ×2 (09:47→22:10)
[2022-10-13] MEDS: ENOXAPARIN NA (PORCINE) 40 MG/0.4 ML DISP.SYRIN SQ SCH ×2 (09:47→09:54)
[2022-10-13] MEDS: FERROUS SO4 325 MG TABLET (FP) PO SCH ×3 (09:47→18:11)
[2022-10-13] MEDS: DOCUSATE SODIUM 100 MG CAPSULE (FP) PO SCH ×3 (09:47→22:10)
[2022-10-13] MEDS: BUDESONIDE/FORMETEROL FUMARATE 80/4.5 mcg INHALER IH SCH ×2 (09:53→22:11)
[2022-10-13] MEDS: ACETAMINOPHEN 1000 MG/100 ML BAG IVPB PRN (12:41)
[2022-10-13] MEDS ORDERED: TRIMETHOBENZAMIDE HCL 200MG/2ML INJ IM PRN (16:16)
[2022-10-13 16:23] LABS: HEMATOCRIT 33.4 % (32.4-45.2); HEMOGLOBIN 10.6 GM/dL (10.7-15.3); MCH 24.2 pg (25.7-33.7); MCHC 31.8 g/dl (32.0-36.0); PLATELET COUNT 190 10^3/uL (134-434); RBC 4.39 M/mm3 (3.60-5.2); RDW 19.7 % (11.6-15.6); WHITE BLOOD COUNT 7.9 K/mm3 (4.0-10.0)
[2022-10-13 16:38] LABS: CALCIUM 8.8 mg/dL (8.5-10.1)
[2022-10-13 16:39] LABS: ALBUMIN 3.8 g/dl (3.4-5.0); BLOOD UREA NITROGEN 3.3 mg/dL (7-18)
[2022-10-13 16:42] LABS: CREATININE 0.8 mg/dL (0.55-1.3)
[2022-10-13] MEDS ORDERED: MELATONIN 5 MG TABLETS PO PRN (16:42)
[2022-10-13 16:44] LABS: BILIRUBIN,TOTAL 0.5 mg/dL (0.2-1)
[2022-10-13] MEDS: POTASSIUM CHLORIDE ORAL LIQUID 20 MEQ/15 ML PO SCH ×2 (17:52→22:07)
[2022-10-13] MEDS: ACETAMINOPHEN 325 MG TABLET (FP) PO PRN (18:38)
[2022-10-13] MEDS: SIMETHICONE 80 MG TAB.CHEW (FP) PO PRN (18:39)
[2022-10-13] MEDS: traZODone HCL 100 MG TABLET (FP) PO SCH (22:10)
[2022-10-13] MEDS ORDERED: ACETAMINOPHEN 1000 MG/100 ML BAG IVPB ONE (22:27)
[2022-10-14] MEDS: FERROUS SO4 325 MG TABLET (FP) PO SCH ×3 (09:00→16:45)
[2022-10-14] MEDS ORDERED: amLODIPine BESYLATE 10 MG TABLET (FP) PO SCH (10:00)
[2022-10-14] MEDS: ACETAMINOPHEN 1000 MG/100 ML BAG IVPB PRN ×2 (10:23→16:35)
[2022-10-14 10:38] LABS: HEMATOCRIT 33.5 % (32.4-45.2); HEMOGLOBIN 10.8 GM/dL (10.7-15.3); MCH 24.4 pg (25.7-33.7); MCHC 32.3 g/dl (32.0-36.0); MEAN CELL VOLUME 75.4 fl (80-96); MEAN PLT VOLUME 8.1 fl (7.5-11.1); PLATELET COUNT 194 10^3/uL (134-434); RBC 4.44 M/mm3 (3.60-5.2); RDW 19.6 % (11.6-15.6); WHITE BLOOD COUNT 6.2 K/mm3 (4.0-10.0)
[2022-10-14 11:07] LABS: BLOOD UREA NITROGEN 4.3 mg/dL (7-18); CALCIUM 9.2 mg/dL (8.5-10.1); MAGNESIUM 1.8 mg/dL (1.8-2.4)
[2022-10-14 11:11] LABS: CREATININE 0.8 mg/dL (0.55-1.3)
[2022-10-14] MEDS: POLYETHYLENE GLYCOL (HEALTHYLAX) 3350 17 GM PACKET PO SCH ×2 (11:33→22:46)
[2022-10-14] MEDS: ENOXAPARIN NA (PORCINE) 40 MG/0.4 ML DISP.SYRIN SQ SCH ×2 (11:33→17:33)
[2022-10-14] MEDS: DOCUSATE SODIUM 100 MG CAPSULE (FP) PO SCH ×2 (11:33→22:46)
[2022-10-14] MEDS: PANTOPRAZOLE SODIUM 40 MG VIAL IVPUSH SCH (11:34)
[2022-10-14] MEDS: BUDESONIDE/FORMETEROL FUMARATE 80/4.5 mcg INHALER IH SCH ×2 (11:35→22:46)
[2022-10-14] MEDS: SERTRALINE HCL 50 MG TABLET (FP) PO SCH (11:35)
[2022-10-14] MEDS: LIDOCAINE 5% TOPICAL PATCH TP SCH (13:07)
[2022-10-14] MEDS: amLODIPine BESYLATE 5 MG TABLET (FP) PO SCH ×2 (13:10→17:23)
[2022-10-14] MEDS: ACETAMINOPHEN 325 MG TABLET (FP) PO PRN (20:41)
[2022-10-14] MEDS: LIDOCAINE PATCH REMOVAL MC SCH (22:46)
[2022-10-14] MEDS: traZODone HCL 100 MG TABLET (FP) PO SCH (22:46)
[2022-10-14] MEDS: SIMETHICONE 80 MG TAB.CHEW (FP) PO PRN (22:46)
[2022-10-15 09:17] LABS: BLOOD UREA NITROGEN 6.7 mg/dL (7-18)
[2022-10-15 09:20] LABS: CREATININE 0.7 mg/dL (0.55-1.3)
[2022-10-15] MEDS: ACETAMINOPHEN 1000 MG/100 ML BAG IVPB PRN (09:48)
[2022-10-15] MEDS: amLODIPine BESYLATE 5 MG TABLET (FP) PO SCH ×2 (09:48→09:53)
[2022-10-15] MEDS: FERROUS SO4 325 MG TABLET (FP) PO SCH ×3 (09:48→17:20)
[2022-10-15] MEDS: ENOXAPARIN NA (PORCINE) 40 MG/0.4 ML DISP.SYRIN SQ SCH (09:48)
[2022-10-15] MEDS: SERTRALINE HCL 50 MG TABLET (FP) PO SCH (09:48)
[2022-10-15] MEDS: DOCUSATE SODIUM 100 MG CAPSULE (FP) PO SCH (09:48)
[2022-10-15] MEDS: PANTOPRAZOLE SODIUM 40 MG VIAL IVPUSH SCH (09:48)
[2022-10-15] MEDS: BUDESONIDE/FORMETEROL FUMARATE 80/4.5 mcg INHALER IH SCH ×2 (09:49→21:26)
[2022-10-15] MEDS: LIDOCAINE 5% TOPICAL PATCH TP SCH (09:55)
[2022-10-15] MEDS: ACETAMINOPHEN 325 MG TABLET (FP) PO PRN ×2 (16:17→23:55)
[2022-10-15] MEDS: traZODone HCL 100 MG TABLET (FP) PO SCH (21:25)
[2022-10-15] MEDS: LIDOCAINE PATCH REMOVAL MC SCH (21:27)
[2022-10-16 01:49] LABS: EPI CELLS 28 /uL (0-25.1); HYALINE CASTS 1 /uL (0-3.1); URINE APPEARANCE CLEAR; URINE BACTERIA 304 /uL (0-1359); URINE BILIRUBIN NEGATIVE (NEGATIVE); URINE COLOR YELLOW; URINE GLUCOSE (UA) NEGATIVE (NEGATIVE); URINE KETONE TRACE (NEGATIVE); URINE LEUK ESTERASE NEGATIVE (NEGATIVE); URINE NITRITE NEGATIVE (NEGATIVE); URINE PROTEIN 1+ (NEGATIVE); URINE RBC 25 /uL (0-23.9); URINE WBC 6 /uL (0-25.8)
[2022-10-16] MEDS ORDERED: ACETAMINOPHEN 1000 MG/100 ML BAG IVPB ONE (04:37)
[2022-10-16] MEDS: FERROUS SO4 325 MG TABLET (FP) PO SCH ×2 (09:47→21:51)
[2022-10-16 09:54] LABS: HEMATOCRIT 34.8 % (32.4-45.2); HEMOGLOBIN 11.1 GM/dL (10.7-15.3); MCH 24.3 pg (25.7-33.7); MCHC 31.9 g/dl (32.0-36.0); MEAN CELL VOLUME 76.4 fl (80-96); MEAN PLT VOLUME 8.2 fl (7.5-11.1); PLATELET COUNT 185 10^3/uL (134-434); RBC 4.55 M/mm3 (3.60-5.2); RDW 20.6 % (11.6-15.6); WHITE BLOOD COUNT 5.7 K/mm3 (4.0-10.0)
[2022-10-16 10:19] LABS: CALCIUM 9.2 mg/dL (8.5-10.1)
[2022-10-16 10:20] LABS: ALBUMIN 3.6 g/dl (3.4-5.0); BLOOD UREA NITROGEN 9.3 mg/dL (7-18)
[2022-10-16 10:23] LABS: CREATININE 0.9 mg/dL (0.55-1.3); PHOSPHOROUS 3.9 mg/dL (2.5-4.9)
[2022-10-16 10:24] LABS: BILIRUBIN,TOTAL 0.3 mg/dL (0.2-1); TOT PROT 7.7 g/dl (6.4-8.2)
[2022-10-16] MEDS ORDERED: MIDAZOLAM HCL 2 MG/2 ML SINGLE DOSE VIAL ONE (11:28)
[2022-10-16] MEDS: amLODIPine BESYLATE 5 MG TABLET (FP) PO SCH (13:16)
[2022-10-16] MEDS: POLYETHYLENE GLYCOL (HEALTHYLAX) 3350 17 GM PACKET PO SCH (13:16)
[2022-10-16] MEDS: SERTRALINE HCL 50 MG TABLET (FP) PO SCH (13:16)
[2022-10-16] MEDS: PANTOPRAZOLE SODIUM 40 MG VIAL IVPUSH SCH (13:17)
[2022-10-16] MEDS: BUDESONIDE/FORMETEROL FUMARATE 80/4.5 mcg INHALER IH SCH ×2 (13:17→21:52)
[2022-10-16] MEDS: LIDOCAINE 5% TOPICAL PATCH TP SCH (16:53)
[2022-10-16] MEDS: ACETAMINOPHEN 325 MG TABLET (FP) PO PRN (16:53)
[2022-10-16] MEDS: LIDOCAINE PATCH REMOVAL MC SCH (21:51)
[2022-10-16] MEDS: traZODone HCL 100 MG TABLET (FP) PO SCH (21:51)
[2022-10-17] MEDS: FERROUS SO4 325 MG TABLET (FP) PO SCH (05:53)
[2022-10-17] MEDS: ACETAMINOPHEN 325 MG TABLET (FP) PO PRN (09:32)
[2022-10-17] MEDS ORDERED: MAG HYDROX/AL HYDROX/SIMETH 30 ML UNIT-DOSE CUP PO ONE (09:53)
[2022-10-17 11:03] LABS: HEMATOCRIT 33.5 % (32.4-45.2); HEMOGLOBIN 10.7 GM/dL (10.7-15.3); MCH 24.3 pg (25.7-33.7); MCHC 31.9 g/dl (32.0-36.0); MEAN CELL VOLUME 76.2 fl (80-96); MEAN PLT VOLUME 8.4 fl (7.5-11.1); PLATELET COUNT 185 10^3/uL (134-434); RDW 20.3 % (11.6-15.6); WHITE BLOOD COUNT 7.4 K/mm3 (4.0-10.0)
[2022-10-17] MEDS: ENOXAPARIN NA (PORCINE) 40 MG/0.4 ML DISP.SYRIN SQ SCH (11:16)
[2022-10-17] MEDS: SERTRALINE HCL 50 MG TABLET (FP) PO SCH (11:16)
[2022-10-17] MEDS: amLODIPine BESYLATE 5 MG TABLET (FP) PO SCH (11:17)
[2022-10-17] MEDS: PANTOPRAZOLE SODIUM 40 MG VIAL IVPUSH SCH (11:17)
[2022-10-17] MEDS: LIDOCAINE 5% TOPICAL PATCH TP SCH (11:17)
[2022-10-17] MEDS: POLYETHYLENE GLYCOL (HEALTHYLAX) 3350 17 GM PACKET PO SCH (11:17)
[2022-10-17] MEDS: BUDESONIDE/FORMETEROL FUMARATE 80/4.5 mcg INHALER IH SCH (11:18)
[2022-10-17 12:10] LABS: ALBUMIN 3.5 g/dl (3.4-5.0); CALCIUM 8.8 mg/dL (8.5-10.1); MAGNESIUM 2.2 mg/dL (1.8-2.4)
[2022-10-17 12:13] LABS: CREATININE 0.9 mg/dL (0.55-1.3)
[2022-10-17 12:15] LABS: BILIRUBIN,TOTAL 0.3 mg/dL (0.2-1); TOT PROT 7.6 g/dl (6.4-8.2)
[2022-10-17] MEDS ORDERED: NAPH,MB-DB/K PH,MBDB POWDER PACKET PO ONE (12:20)
[2022-10-17 19:31] VITALS: RESP 19
[2022-10-17 19:32] VITALS: BP 111/84; PULSE 96; TEMP 98.1
== END 2022-10-17 14:06 | disposition home or self-care (01) ==
LOC: JERFT 12:37 → INTOOBSV 20:43 → UNDOADMOB 20:43 → JERBED 20:43 → J5S 10-13 01:56 → OBSVTOIN 10-15 12:41 → JERBED 10-15 12:41 → INTOOBSV 10-15 12:41 → J5S 10-15 12:41
PROVIDERS: ADMIT Internal Medicine; ATTEND Internal Medicine
PROC: 3E033NZ Introduction of Analgesics, Hypnotics, Sedatives into Peripheral Vein, Percutaneous Approach (ICD-10-PCS; principal; 2022-10-15)
PROC: 3E033GC Introduction of Other Therapeutic Substance into Peripheral Vein, Percutaneous Approach (ICD-10-PCS; 2022-10-15)
PROC: 3E023GC Introduction of Other Therapeutic Substance into Muscle, Percutaneous Approach (ICD-10-PCS; 2022-10-15)
DX: Z98.84 Bariatric surgery status (principal); F10.10 Alcohol abuse, uncomplicated; F14.21 Cocaine dependence, in remission; F41.8 Other specified anxiety disorders; F12.10 Cannabis abuse, uncomplicated; I11.0 Hypertensive heart disease with heart failure; D64.9 Anemia, unspecified; I50.9 Heart failure, unspecified; K21.9 Gastro-esophageal reflux disease without esophagitis; R56.9 Unspecified convulsions; Z85.3 Personal history of malignant neoplasm of breast; J45.909 Unspecified asthma, uncomplicated; F17.210 Nicotine dependence, cigarettes, uncomplicated; M79.641 Pain in right hand; R60.0 Localized edema; Z29.8 Encounter for other specified prophylactic measures; R10.9 Unspecified abdominal pain; Z88.0 Allergy status to penicillin; Z91.010 Allergy to peanuts; Z88.8 Allergy status to other drugs, medicaments and biological substances
CPT/HCPCS: 0241U-QW; 36415; 71046-TC-FY; 73110-TC-RT-FY; 73130-TC-RT-FY; 74177-TC; 76830-TC; 80048; 80053; 80307; 81003; 82728; 83540; 83550; 83690; 83735; 83880; 84100; 84484; 84703; 85025; 85027; 85045; 85610; 85730; 86850; 86900; 86901; 87086; 88305-TC; 93005; 93010; 93306-TC; 99285-25; G0378; Q9967

== ENCOUNTER 2022-10-17 14:41 | Emergency (ER) | payer OTHER ==
[2022-10-17] MEDS ORDERED: morphine SULFATE 4 MG/ML VIAL IVPUSH ONE (14:45)
[2022-10-17] MEDS ORDERED: HYDROmorphone HCl 2 MG/ML VIAL ONE (14:52)
[2022-10-17] MEDS ORDERED: FENTANYL CITRATE/PF 50 MCG/ML VIAL ONE ×2 (14:54→20:16)
[2022-10-17 15:34] VITALS: TEMP 98.4; BMI 31.6
[2022-10-17 15:43] LABS: VENOUS BASE EXCESS 1.6 mmol/L (-2-2); VENOUS PCO2 34.2 mmHg (38-52); VENOUS PH 7.476 (7.310-7.410)
[2022-10-17 15:48] LABS: HEMATOCRIT 37.3 % (32.4-45.2); HEMOGLOBIN 11.7 GM/dL (10.7-15.3); MCH 23.9 pg (25.7-33.7); MCHC 31.3 g/dl (32.0-36.0); MEAN CELL VOLUME 76.3 fl (80-96); MEAN PLT VOLUME 8.6 fl (7.5-11.1); PLATELET COUNT 202 10^3/uL (134-434); RBC 4.89 M/mm3 (3.60-5.2); RDW 20.7 % (11.6-15.6); WHITE BLOOD COUNT 7.7 K/mm3 (4.0-10.0)
[2022-10-17] MEDS ORDERED: LORazepam 2 MG/ML SDV VIAL IVPUSH ONE (15:50)
[2022-10-17 16:06] LABS: CALCIUM 9.7 mg/dL (8.5-10.1)
[2022-10-17 16:07] LABS: BLOOD UREA NITROGEN 8.5 mg/dL (7-18); MAGNESIUM 2.2 mg/dL (1.8-2.4)
[2022-10-17 16:09] LABS: PHOSPHOROUS 2.5 mg/dL (2.5-4.9)
[2022-10-17 16:11] LABS: BILIRUBIN,TOTAL 0.5 mg/dL (0.2-1); TOT PROT 8.6 g/dl (6.4-8.2)
[2022-10-17] MEDS ORDERED: FENTANYL CITRATE/PF 50 MCG/ML VIAL IVPUSH ONE ×2 (16:16→19:12)
[2022-10-17] MEDS ORDERED: KCL 10 MEQ IVPB 10 MEQ/100 ML INFUS.BAG IVPB ONE ×3 (16:22→20:22)
[2022-10-17] MEDS: KCL 10 MEQ IVPB 10 MEQ/100 ML INFUS.BAG IVPB SCH ×4 (16:27→20:32)
[2022-10-17 16:55] LABS: ANISOCYTOSIS 2+; MACROCYTOSIS 2+; OVALOCYTE 1+; TARGET CELLS 1+
[2022-10-17 17:04] LABS: LACTIC ACID 2.5 mmol/L (0.4-2.0)
[2022-10-17] MEDS ORDERED: LACTATED RINGERS SOLUTION 1000 ML INFUS.BAG IV ONE (17:21)
[2022-10-17] MEDS ORDERED: SIMETHICONE 80 MG TAB.CHEW (FP) PO ONE (17:25)
[2022-10-17 17:29] VITALS: BP 150/83; PULSE 94; RESP 19
[2022-10-17] MEDS ORDERED: SIMETHICONE 80 MG TAB.CHEW (FP) ONE (18:32)
[2022-10-17] MEDS ORDERED: ACETAMINOPHEN 1000 MG/100 ML BAG IVPB ONE (21:27)
[2022-10-17] MEDS ORDERED: ACETAMINOPHEN INJECTION 100 ML IVPB ONE (21:30)
== END 2022-10-17 23:43 | disposition short-term general hospital (02) ==
LOC: JER 14:41
PROC: 3E0333Z Introduction of Anti-inflammatory into Peripheral Vein, Percutaneous Approach (ICD-10-PCS; principal; 2022-10-17)
PROC: 3E033NZ Introduction of Analgesics, Hypnotics, Sedatives into Peripheral Vein, Percutaneous Approach (ICD-10-PCS; 2022-10-17)
PROC: 3E033NZ Introduction of Analgesics, Hypnotics, Sedatives into Peripheral Vein, Percutaneous Approach (ICD-10-PCS; 2022-10-17)
PROC: 3E033NZ Introduction of Analgesics, Hypnotics, Sedatives into Peripheral Vein, Percutaneous Approach (ICD-10-PCS; 2022-10-17)
PROC: 3E033GC Introduction of Other Therapeutic Substance into Peripheral Vein, Percutaneous Approach (ICD-10-PCS; 2022-10-17)
DX: R10.30 Lower abdominal pain, unspecified (principal); E87.6 Hypokalemia; Z68.39 Body mass index [BMI] 39.0-39.9, adult
CPT/HCPCS: 36415; 71046-TC-FY; 71260-TC; 74177-TC; 76937; 80053; 82803; 83605; 83690; 83735; 84100; 84484; 84703; 85025; 87040; 99285-25; Q9967

== ENCOUNTER 2023-01-20 15:43 | Inpatient (IN) | payer OTHER ==
[2023-01-20 16:42] VITALS: BMI 32.9
[2023-01-20] MEDS ORDERED: MAG HYDROX/AL HYDROX/SIMETH 30 ML UNIT-DOSE CUP PO PRN (17:12)
[2023-01-20] MEDS ORDERED: MAGNESIUM HYDROX 2400MG/30ML ORAL SUSPENSION 30 ML CUP PO PRN (17:12)
[2023-01-20] MEDS ORDERED: NALOXONE HCL (KLOXXADO) 8 MG SPRAY NS PRN (17:12)
[2023-01-20] MEDS ORDERED: ACETAMINOPHEN 325 MG TABLET (FP) PO PRN (17:12)
[2023-01-20] MEDS ORDERED: BENZONATATE 200 MG CAPSULE PO PRN (17:12)
[2023-01-20] MEDS ORDERED: LOPERAMIDE HCL 2 MG CAPSULE PO PRN (17:12)
[2023-01-20] MEDS ORDERED: hydrOXYzine PAMOATE 25 MG CAPSULE (FP) PO PRN (17:12)
[2023-01-20] MEDS ORDERED: ONDANSETRON *ODT* 4 MG TABLET SL PRN (17:12)
[2023-01-20] MEDS ORDERED: DICYCLOMINE HCL 10 MG CAPSULE PO PRN (17:12)
[2023-01-20] MEDS ORDERED: NALOXONE HCL 0.4 MG/ML VIAL IM PRN (17:12)
[2023-01-20] MEDS ORDERED: guaiFENesin 600 MG TABLET.ER (FP) PO PRN (17:12)
[2023-01-20] MEDS: METHOCARBAMOL 500 MG TABLET PO PRN (18:11)
[2023-01-20] MEDS ORDERED: MELATONIN 5 MG TABLETS PO SCH (22:00)
[2023-01-20] MEDS ORDERED: chlordiazePOXIDE HCL 25 MG CAPSULE PO PRN (22:15)
[2023-01-20] MEDS: THIAMINE HCL 100 MG TABLET (FP) PO SCH (22:21)
[2023-01-20] MEDS: chlordiazePOXIDE HCL 25 MG CAPSULE PO SCH (22:57)
[2023-01-21] MEDS: chlordiazePOXIDE HCL 25 MG CAPSULE PO SCH ×4 (05:46→22:20)
[2023-01-21] MEDS: COLLOIDAL OATMEAL 1 BAR EACH TP PRN (10:13)
[2023-01-21] MEDS: PRENATAL VITAMINS W/ FOLIC ACID TABLET (FP) PO SCH (10:13)
[2023-01-21] MEDS: PETROLATUM,WHITE OINTMENT 3.5 OZ JAR TP SCH ×2 (10:15→22:18)
[2023-01-21] MEDS: NICOTINE 21 MG/24 HOURS TOPICAL PATCH TD SCH (10:16)
[2023-01-21] MEDS ORDERED: ALBUTEROL SO4 HFA INHALER IH PRN (10:16)
[2023-01-21] MEDS: BUDESONIDE/FORMETEROL FUMARATE 80/4.5 mcg INHALER IH SCH ×2 (11:07→22:18)
[2023-01-21] MEDS: FUROSEMIDE 40 MG TABLET (FP) PO SCH ×2 (11:07→22:19)
[2023-01-21] MEDS: amLODIPine BESYLATE 5 MG TABLET (FP) PO SCH (11:07)
[2023-01-21] MEDS: BISACODYL 5 MG TABLET.DR (FP) PO SCH (12:07)
[2023-01-21 12:22] LABS: HEMOGLOBIN 8.4 GM/dL (10.7-15.3); MCHC 31.2 g/dl (32.0-36.0); MEAN CELL VOLUME 70.4 fl (80-96); MEAN PLT VOLUME 8.3 fl (7.5-11.1); PLATELET COUNT 258 10^3/uL (134-434); RBC 3.83 M/mm3 (3.60-5.2); RDW 19.8 % (11.6-15.6); WHITE BLOOD COUNT 6.3 K/mm3 (4.0-10.0)
[2023-01-21 12:25] LABS: POTASSIUM 4.3 mmol/L (3.5-5.1)
[2023-01-21 12:30] LABS: BLOOD UREA NITROGEN 10.2 mg/dL (7-18); CALCIUM 8.4 mg/dL (8.5-10.1)
[2023-01-21 12:33] LABS: CREATININE 0.9 mg/dL (0.55-1.3)
[2023-01-21 12:35] LABS: BILIRUBIN,TOTAL 0.6 mg/dL (0.2-1); TOT PROT 6.6 g/dl (6.4-8.2)
[2023-01-21] MEDS: THIAMINE HCL 100 MG TABLET (FP) PO SCH (22:19)
[2023-01-21] MEDS: SUVOREXANT 10 MG TABLET PO PRN (22:20)
[2023-01-22] MEDS: chlordiazePOXIDE HCL 25 MG CAPSULE PO SCH ×4 (05:54→22:09)
[2023-01-22] MEDS: NICOTINE POLACRILEX 2 MG GUM BUC PRN ×2 (05:57→23:29)
[2023-01-22] MEDS: METHOCARBAMOL 500 MG TABLET PO PRN ×3 (08:45→22:12)
[2023-01-22] MEDS: PRENATAL VITAMINS W/ FOLIC ACID TABLET (FP) PO SCH (10:10)
[2023-01-22] MEDS: NICOTINE 21 MG/24 HOURS TOPICAL PATCH TD SCH (10:11)
[2023-01-22] MEDS: FUROSEMIDE 40 MG TABLET (FP) PO SCH ×2 (10:12→22:08)
[2023-01-22] MEDS: BISACODYL 5 MG TABLET.DR (FP) PO SCH (10:12)
[2023-01-22] MEDS: POTASSIUM CHLORIDE TABS 20 MEQ TABLET.ER (FP) PO SCH (10:12)
[2023-01-22] MEDS: amLODIPine BESYLATE 5 MG TABLET (FP) PO SCH (10:13)
[2023-01-22] MEDS: BUDESONIDE/FORMETEROL FUMARATE 80/4.5 mcg INHALER IH SCH ×2 (10:18→22:05)
[2023-01-22] MEDS: PETROLATUM,WHITE OINTMENT 3.5 OZ JAR TP SCH ×2 (10:18→22:04)
[2023-01-22] MEDS ORDERED: hydrOXYzine PAMOATE 25 MG CAPSULE (FP) PO PRN (14:53)
[2023-01-22] MEDS: SUVOREXANT 10 MG TABLET PO PRN (22:06)
[2023-01-22] MEDS: THIAMINE HCL 100 MG TABLET (FP) PO SCH (22:06)
[2023-01-22] MEDS: FERROUS SO4 325 MG TABLET (FP) PO SCH (22:07)
[2023-01-22] MEDS: BENZOCAINE/MENTHOL (CHLORASEPTIC ) LOZENGE MM PRN (22:11)
[2023-01-23] MEDS ORDERED: chlordiazePOXIDE HCL 10 MG CAPSULE PO PRN
[2023-01-23] MEDS: chlordiazePOXIDE HCL 10 MG CAPSULE PO SCH ×4 (05:20→22:05)
[2023-01-23] MEDS: PRENATAL VITAMINS W/ FOLIC ACID TABLET (FP) PO SCH (10:04)
[2023-01-23] MEDS: NICOTINE 21 MG/24 HOURS TOPICAL PATCH TD SCH (10:04)
[2023-01-23] MEDS: FUROSEMIDE 40 MG TABLET (FP) PO SCH ×2 (10:05→22:05)
[2023-01-23] MEDS: BISACODYL 5 MG TABLET.DR (FP) PO SCH (10:05)
[2023-01-23] MEDS: amLODIPine BESYLATE 5 MG TABLET (FP) PO SCH (10:05)
[2023-01-23] MEDS: FERROUS SO4 325 MG TABLET (FP) PO SCH ×2 (10:05→22:05)
[2023-01-23] MEDS: POTASSIUM CHLORIDE TABS 20 MEQ TABLET.ER (FP) PO SCH (10:06)
[2023-01-23] MEDS: PETROLATUM,WHITE OINTMENT 3.5 OZ JAR TP SCH ×2 (10:06→22:55)
[2023-01-23] MEDS: BUDESONIDE/FORMETEROL FUMARATE 80/4.5 mcg INHALER IH SCH ×2 (10:07→22:06)
[2023-01-23] MEDS: NICOTINE POLACRILEX 2 MG GUM BUC PRN (10:11)
[2023-01-23 11:11] LABS: POTASSIUM 4.5 mmol/L (3.5-5.1)
[2023-01-23 11:13] LABS: CALCIUM 8.2 mg/dL (8.5-10.1)
[2023-01-23 11:18] LABS: CREATININE 0.8 mg/dL (0.55-1.3)
[2023-01-23] MEDS: SUVOREXANT 10 MG TABLET PO PRN (22:04)
[2023-01-23] MEDS: THIAMINE HCL 100 MG TABLET (FP) PO SCH (22:05)
[2023-01-23] MEDS: METHOCARBAMOL 500 MG TABLET PO PRN (22:08)
[2023-01-24] MEDS: chlordiazePOXIDE HCL 10 MG CAPSULE PO SCH ×2 (05:55→17:26)
[2023-01-24] MEDS: METHOCARBAMOL 500 MG TABLET PO PRN ×2 (05:58→17:28)
[2023-01-24] MEDS: FUROSEMIDE 40 MG TABLET (FP) PO SCH ×2 (10:50→22:32)
[2023-01-24] MEDS: FERROUS SO4 325 MG TABLET (FP) PO SCH ×2 (10:51→22:33)
[2023-01-24] MEDS: POTASSIUM CHLORIDE TABS 20 MEQ TABLET.ER (FP) PO SCH (10:51)
[2023-01-24] MEDS: PETROLATUM,WHITE OINTMENT 3.5 OZ JAR TP SCH ×2 (10:51→22:33)
[2023-01-24] MEDS: PRENATAL VITAMINS W/ FOLIC ACID TABLET (FP) PO SCH (10:52)
[2023-01-24] MEDS: BISACODYL 5 MG TABLET.DR (FP) PO SCH (10:55)
[2023-01-24] MEDS: BUDESONIDE/FORMETEROL FUMARATE 80/4.5 mcg INHALER IH SCH ×2 (10:55→22:31)
[2023-01-24] MEDS: NAPROXEN 500 MG TABLET PO SCH ×2 (10:55→22:32)
[2023-01-24] MEDS: amLODIPine BESYLATE 5 MG TABLET (FP) PO SCH (10:55)
[2023-01-24] MEDS: NICOTINE 21 MG/24 HOURS TOPICAL PATCH TD SCH (10:55)
[2023-01-24] MEDS: COLLOIDAL OATMEAL 1 BAR EACH TP PRN (10:58)
[2023-01-24] MEDS: SUVOREXANT 10 MG TABLET PO PRN (21:36)
[2023-01-24] MEDS: THIAMINE HCL 100 MG TABLET (FP) PO SCH (22:32)
[2023-01-24] MEDS: POLYETHYLENE GLYCOL (HEALTHYLAX) 3350 17 GM PACKET PO PRN (22:34)
[2023-01-25] MEDS: METHOCARBAMOL 500 MG TABLET PO PRN (03:49)
[2023-01-25] MEDS ORDERED: chlordiazePOXIDE HCL 10 MG CAPSULE PO ONE (05:00)
[2023-01-25 09:37] VITALS: BP 106/64; PULSE 89; RESP 17; TEMP 97.5
[2023-01-25] MEDS: BUDESONIDE/FORMETEROL FUMARATE 80/4.5 mcg INHALER IH SCH (10:22)
[2023-01-25] MEDS: amLODIPine BESYLATE 5 MG TABLET (FP) PO SCH (10:22)
[2023-01-25] MEDS: NAPROXEN 500 MG TABLET PO SCH (10:22)
[2023-01-25] MEDS: FUROSEMIDE 40 MG TABLET (FP) PO SCH (10:22)
[2023-01-25] MEDS: POTASSIUM CHLORIDE TABS 20 MEQ TABLET.ER (FP) PO SCH (10:24)
[2023-01-25] MEDS: FERROUS SO4 325 MG TABLET (FP) PO SCH (10:24)
[2023-01-25] MEDS: NICOTINE 21 MG/24 HOURS TOPICAL PATCH TD SCH (10:25)
[2023-01-25] MEDS: POLYETHYLENE GLYCOL (HEALTHYLAX) 3350 17 GM PACKET PO PRN (10:28)
[2023-01-25] MEDS: NICOTINE POLACRILEX 2 MG GUM BUC PRN (10:30)
[2023-01-25] MEDS: PETROLATUM,WHITE OINTMENT 3.5 OZ JAR TP SCH (10:31)
[2023-01-25] MEDS: BENZOCAINE/MENTHOL (CHLORASEPTIC ) LOZENGE MM PRN (10:31)
[2023-01-25] MEDS: PRENATAL VITAMINS W/ FOLIC ACID TABLET (FP) PO SCH (10:31)
== END 2023-01-25 12:35 | disposition home or self-care (01) | DRG 774 ==
LOC: YASAS 15:43 → Y3N 17:14
PROVIDERS: ADMIT Allergy & Immunology; ATTEND Surgery
PROC: HZ2ZZZZ Detoxification Services for Substance Abuse Treatment (ICD-10-PCS; principal; 2023-01-20)
DX: F10.230 Alcohol dependence with withdrawal, uncomplicated (principal); F14.20 Cocaine dependence, uncomplicated; F17.210 Nicotine dependence, cigarettes, uncomplicated; F19.282 Other psychoactive substance dependence with psychoactive substance-induced sleep disorder; F19.24 Other psychoactive substance dependence with psychoactive substance-induced mood disorder; D64.9 Anemia, unspecified; I50.9 Heart failure, unspecified; J45.20 Mild intermittent asthma, uncomplicated; N93.9 Abnormal uterine and vaginal bleeding, unspecified; Z91.410 Personal history of adult physical and sexual abuse; Z88.0 Allergy status to penicillin; Z88.6 Allergy status to analgesic agent; Z91.010 Allergy to peanuts
CPT/HCPCS: 36415; 80048; 80053; 81025; 82140; 84702; 85027; 86780; 87811; C9803-CS; U0003; U0005

== ENCOUNTER 2023-01-23 16:28 | Emergency (ER) | payer OTHER ==
[2023-01-23 16:40] VITALS: BP 122/75; PULSE 85; RESP 18; TEMP 98.1; BMI 71.5
[2023-01-23] MEDS ORDERED: SODIUM CHLORIDE 0.9% 500 ML INFUS.BAG IV ONE (17:05)
[2023-01-23] MEDS: ACETAMINOPHEN 1000 MG/100 ML BAG IVPB ONE ×2 (17:21→18:15)
[2023-01-23] MEDS ORDERED: ACETAMINOPHEN INJECTION 100 ML IVPB ONE (17:39)
[2023-01-23 18:43] LABS: BASO % 0.8 % (0-2.0); EOS % 2.1 % (0-4.5); HEMATOCRIT 29.5 % (32.4-45.2); LYMPH % 31.8 % (8-40); MCH 21.8 pg (25.7-33.7); MCHC 30.5 g/dl (32.0-36.0); MEAN CELL VOLUME 71.3 fl (80-96); MEAN PLT VOLUME 8.1 fl (7.5-11.1); MONO % 12.9 % (3.8-10.2); NEUT % 52.4 % (42.8-82.8); PLATELET COUNT 309 10^3/uL (134-434); RBC 4.14 M/mm3 (3.60-5.2); RDW 20.2 % (11.6-15.6); WHITE BLOOD COUNT 6.5 K/mm3 (4.0-10.0)
[2023-01-23 18:57] LABS: CHLORIDE 109 mmol/L (98-107); POTASSIUM 4.3 mmol/L (3.5-5.1); SODIUM 141 mmol/L (136-145)
[2023-01-23 18:59] LABS: ANION GAP 5 MMOL/L (8-16); CALCIUM 8.6 mg/dL (8.5-10.1); CO2 27 mmol/L (21-32); GLUCOSE,RANDOM 101 mg/dL (74-106)
[2023-01-23 19:00] LABS: BLOOD UREA NITROGEN 8.5 mg/dL (7-18)
[2023-01-23 19:03] LABS: CREATININE 0.9 mg/dL (0.55-1.3)
[2023-01-23] MEDS ORDERED: traMADol HCL 50 MG TABLET PO ONE (19:44)
[2023-01-23] MEDS ORDERED: traMADol HCL 50 MG TABLET ONE (19:49)
[2023-01-23 21:27] LABS: ANISOCYTOSIS 2+; MACROCYTOSIS 0
== END 2023-01-23 20:25 | disposition home or self-care (01) ==
LOC: JER 16:28
DX: O03.9 Complete or unspecified spontaneous abortion without complication (principal); O26.891 Other specified pregnancy related conditions, first trimester; R10.30 Lower abdominal pain, unspecified; Z3A.00 Weeks of gestation of pregnancy not specified
CPT/HCPCS: 36415; 76817-TC; 80048; 84702; 84703; 85025; 86850; 86900; 86901; 99284-25

== ENCOUNTER 2023-04-01 21:52 | Inpatient (IN) | payer OTHER ==
[2023-04-02 00:03] VITALS: BMI 38.2
[2023-04-02] MEDS ORDERED: MAG HYDROX/AL HYDROX/SIMETH 30 ML UNIT-DOSE CUP PO PRN (02:52)
[2023-04-02] MEDS ORDERED: guaiFENesin 600 MG TABLET.ER (FP) PO PRN (02:52)
[2023-04-02] MEDS ORDERED: ACETAMINOPHEN 325 MG TABLET (FP) PO PRN (02:52)
[2023-04-02] MEDS ORDERED: NALOXONE HCL 0.4 MG/ML VIAL IM PRN (02:52)
[2023-04-02] MEDS ORDERED: ONDANSETRON *ODT* 4 MG TABLET SL PRN (02:52)
[2023-04-02] MEDS ORDERED: NALOXONE HCL (KLOXXADO) 8 MG SPRAY NS PRN (02:52)
[2023-04-02] MEDS ORDERED: DICYCLOMINE HCL 10 MG CAPSULE PO PRN (02:52)
[2023-04-02] MEDS ORDERED: IBUPROFEN 400 MG TABLET (FP) PO PRN (02:52)
[2023-04-02] MEDS ORDERED: IBUPROFEN 600 MG TABLET (FP) PO PRN (02:52)
[2023-04-02] MEDS ORDERED: BENZOCAINE/MENTHOL (CHLORASEPTIC ) LOZENGE MM PRN (02:52)
[2023-04-02] MEDS ORDERED: BENZONATATE 200 MG CAPSULE PO PRN (02:52)
[2023-04-02] MEDS ORDERED: BISMUTH SUBSALICYLATE 524 MG/30 ML PO PRN (02:52)
[2023-04-02] MEDS ORDERED: MAGNESIUM HYDROX 2400MG/30ML ORAL SUSPENSION 30 ML CUP PO PRN (02:52)
[2023-04-02] MEDS ORDERED: POLYETHYLENE GLYCOL (HEALTHYLAX) 3350 17 GM PACKET PO PRN (02:52)
[2023-04-02] MEDS ORDERED: LOPERAMIDE HCL 2 MG CAPSULE PO PRN (02:52)
[2023-04-02] MEDS ORDERED: LORazepam 1 MG TABLET PO PRN (03:04)
[2023-04-02] MEDS: LORazepam 2 MG TABLET PO SCH ×4 (05:31→22:13)
[2023-04-02] MEDS ORDERED: ALBUTEROL SO4 HFA INHALER IH PRN (09:36)
[2023-04-02] MEDS ORDERED: DOCUSATE SODIUM 100 MG CAPSULE (FP) PO PRN (09:40)
[2023-04-02] MEDS ORDERED: FUROSEMIDE 40 MG TABLET (FP) PO SCH (10:00)
[2023-04-02] MEDS: PRENATAL VITAMINS W/ FOLIC ACID TABLET (FP) PO SCH (10:10)
[2023-04-02] MEDS: NICOTINE 21 MG/24 HOURS TOPICAL PATCH TD SCH (10:10)
[2023-04-02] MEDS: NICOTINE POLACRILEX 2 MG GUM BUC PRN ×2 (10:11→13:30)
[2023-04-02] MEDS: MOMETASONE FUROATE 110 MCG/IH INHALER IH SCH ×2 (10:34→22:14)
[2023-04-02] MEDS: METHOCARBAMOL 500 MG TABLET PO PRN ×2 (13:30→22:15)
[2023-04-02] MEDS ORDERED: COLLOIDAL OATMEAL 1 BAR EACH TP PRN (14:24)
[2023-04-02] MEDS ORDERED: FUROSEMIDE 40 MG TABLET (FP) PO ONE (16:00)
[2023-04-02] MEDS: MELATONIN 5 MG TABLETS PO SCH (22:13)
[2023-04-02] MEDS: THIAMINE HCL 100 MG TABLET (FP) PO SCH (22:13)
[2023-04-02] MEDS: amLODIPine BESYLATE 5 MG TABLET (FP) PO SCH (22:20)
[2023-04-03] MEDS: LORazepam 1 MG TABLET PO SCH ×4 (05:49→22:04)
[2023-04-03] MEDS: FUROSEMIDE 20 MG TABLET (FP) PO SCH ×2 (05:50→13:08)
[2023-04-03] MEDS: METHOCARBAMOL 500 MG TABLET PO PRN ×2 (06:21→16:24)
[2023-04-03] MEDS: PRENATAL VITAMINS W/ FOLIC ACID TABLET (FP) PO SCH (10:37)
[2023-04-03] MEDS: NICOTINE 21 MG/24 HOURS TOPICAL PATCH TD SCH (10:38)
[2023-04-03] MEDS: MINERAL OIL/PETROLAT/WATER TOPICAL CREAM 113 GM JAR TP SCH (10:38)
[2023-04-03] MEDS: MOMETASONE FUROATE 110 MCG/IH INHALER IH SCH ×2 (10:38→22:05)
[2023-04-03] MEDS: NICOTINE POLACRILEX 2 MG GUM BUC PRN (12:25)
[2023-04-03] MEDS: THIAMINE HCL 100 MG TABLET (FP) PO SCH (22:04)
[2023-04-03] MEDS: MELATONIN 5 MG TABLETS PO SCH (22:04)
[2023-04-03] MEDS: amLODIPine BESYLATE 5 MG TABLET (FP) PO SCH (22:05)
[2023-04-04] MEDS ORDERED: LORazepam 0.5 MG TABLET PO PRN
[2023-04-04] MEDS: LORazepam 0.5 MG TABLET PO SCH ×4 (05:49→22:04)
[2023-04-04] MEDS: FUROSEMIDE 20 MG TABLET (FP) PO SCH ×2 (05:49→13:15)
[2023-04-04] MEDS ORDERED: MOMETASONE FUROATE 110 MCG/IH INHALER IH SCH (10:00)
[2023-04-04] MEDS: PRENATAL VITAMINS W/ FOLIC ACID TABLET (FP) PO SCH (10:24)
[2023-04-04] MEDS: METHOCARBAMOL 500 MG TABLET PO PRN (10:24)
[2023-04-04] MEDS: MOMETASONE FUROATE 110 MCG/IH INHALER IH SCH ×2 (10:25→22:04)
[2023-04-04] MEDS: MINERAL OIL/PETROLAT/WATER TOPICAL CREAM 113 GM JAR TP SCH (10:25)
[2023-04-04] MEDS: NICOTINE 21 MG/24 HOURS TOPICAL PATCH TD SCH (10:27)
[2023-04-04 11:32] LABS: HEMATOCRIT 26.9 % (32.4-45.2); HEMOGLOBIN 8.2 GM/dL (10.7-15.3); MCH 20.8 pg (25.7-33.7); MCHC 30.5 g/dl (32.0-36.0); MEAN CELL VOLUME 68.2 fl (80-96); MEAN PLT VOLUME 7.9 fl (7.5-11.1); PLATELET COUNT 247 10^3/uL (134-434); RBC 3.95 M/mm3 (3.60-5.2); RDW 20.6 % (11.6-15.6); WHITE BLOOD COUNT 5.8 K/mm3 (4.0-10.0)
[2023-04-04 12:16] LABS: POTASSIUM 4.1 mmol/L (3.5-5.1)
[2023-04-04 12:18] LABS: BLOOD UREA NITROGEN 9.9 mg/dL (7-18); CALCIUM 8.1 mg/dL (8.5-10.1)
[2023-04-04 12:21] LABS: CREATININE 0.8 mg/dL (0.55-1.3)
[2023-04-04 12:23] LABS: BILIRUBIN,TOTAL 0.1 mg/dL (0.2-1); TOT PROT 6.5 g/dl (6.4-8.2)
[2023-04-04 21:06] VITALS: RESP 17
[2023-04-04] MEDS: amLODIPine BESYLATE 5 MG TABLET (FP) PO SCH (22:04)
[2023-04-04] MEDS: THIAMINE HCL 100 MG TABLET (FP) PO SCH (22:04)
[2023-04-04] MEDS: MELATONIN 5 MG TABLETS PO SCH (22:05)
[2023-04-05] MEDS ORDERED: LORazepam 0.5 MG TABLET PO ONE (05:00)
[2023-04-05] MEDS: FUROSEMIDE 20 MG TABLET (FP) PO SCH (05:59)
[2023-04-05 09:29] VITALS: BP 128/84; PULSE 68; TEMP 97.7
[2023-04-05] MEDS: MINERAL OIL/PETROLAT/WATER TOPICAL CREAM 113 GM JAR TP SCH (10:35)
[2023-04-05] MEDS: MOMETASONE FUROATE 110 MCG/IH INHALER IH SCH (10:35)
[2023-04-05] MEDS: PRENATAL VITAMINS W/ FOLIC ACID TABLET (FP) PO SCH (10:36)
[2023-04-05] MEDS: NICOTINE 21 MG/24 HOURS TOPICAL PATCH TD SCH (10:36)
== END 2023-04-05 09:23 | disposition home or self-care (01) | DRG 775 ==
LOC: YASAS 21:52 → Y6N 04-02 03:22
PROVIDERS: ADMIT Allergy & Immunology; ATTEND Surgery
PROC: HZ2ZZZZ Detoxification Services for Substance Abuse Treatment (ICD-10-PCS; principal; 2023-04-02)
DX: F10.230 Alcohol dependence with withdrawal, uncomplicated (principal); F12.20 Cannabis dependence, uncomplicated; F17.213 Nicotine dependence, cigarettes, with withdrawal; F10.24 Alcohol dependence with alcohol-induced mood disorder; I11.0 Hypertensive heart disease with heart failure; J45.20 Mild intermittent asthma, uncomplicated; L85.3 Xerosis cutis; E11.9 Type 2 diabetes mellitus without complications; E66.9 Obesity, unspecified; Z68.38 Body mass index [BMI] 38.0-38.9, adult; Z88.0 Allergy status to penicillin; Z88.6 Allergy status to analgesic agent
CPT/HCPCS: 36415; 80053; 81025; 82962; 85027; 86780; 87635; 93005; 93010

== ENCOUNTER 2023-06-10 13:32 | Inpatient (IN) | payer OTHER ==
[2023-06-10 14:14] VITALS: BMI 34.7
[2023-06-10] MEDS ORDERED: NALOXONE HCL 0.4 MG/ML VIAL IM PRN (15:42)
[2023-06-10] MEDS ORDERED: BISMUTH SUBSALICYLATE 524 MG/30 ML PO PRN (15:42)
[2023-06-10] MEDS ORDERED: POLYETHYLENE GLYCOL (HEALTHYLAX) 3350 17 GM PACKET PO PRN (15:42)
[2023-06-10] MEDS ORDERED: MAG HYDROX/AL HYDROX/SIMETH 30 ML UNIT-DOSE CUP PO PRN (15:42)
[2023-06-10] MEDS ORDERED: guaiFENesin 600 MG TABLET.ER (FP) PO PRN (15:42)
[2023-06-10] MEDS ORDERED: ONDANSETRON *ODT* 4 MG TABLET SL PRN (15:42)
[2023-06-10] MEDS ORDERED: MAGNESIUM HYDROX 2400MG/30ML ORAL SUSPENSION 30 ML CUP PO PRN (15:42)
[2023-06-10] MEDS ORDERED: NALOXONE HCL (KLOXXADO) 8 MG SPRAY NS PRN (15:42)
[2023-06-10] MEDS ORDERED: BENZONATATE 200 MG CAPSULE PO PRN (15:42)
[2023-06-10] MEDS ORDERED: LOPERAMIDE HCL 2 MG CAPSULE PO PRN (15:42)
[2023-06-10] MEDS ORDERED: BENZOCAINE/MENTHOL (CHLORASEPTIC ) LOZENGE MM PRN (15:42)
[2023-06-10] MEDS ORDERED: chlordiazePOXIDE HCL 25 MG CAPSULE PO PRN (15:47)
[2023-06-10] MEDS ORDERED: chlordiazePOXIDE HCL 25 MG CAPSULE ONE (16:55)
[2023-06-10] MEDS: chlordiazePOXIDE HCL 25 MG CAPSULE PO SCH ×3 (17:01→22:14)
[2023-06-10] MEDS: NICOTINE POLACRILEX 2 MG GUM BUC PRN (18:24)
[2023-06-10] MEDS ORDERED: MELATONIN 5 MG TABLETS PO SCH (22:00)
[2023-06-10] MEDS: hydrOXYzine PAMOATE 25 MG CAPSULE (FP) PO PRN (22:14)
[2023-06-10] MEDS: THIAMINE HCL 100 MG TABLET (FP) PO SCH (22:14)
[2023-06-11] MEDS: FUROSEMIDE 20 MG TABLET (FP) PO SCH ×2 (05:32→13:13)
[2023-06-11] MEDS: chlordiazePOXIDE HCL 25 MG CAPSULE PO SCH ×4 (05:34→22:21)
[2023-06-11] MEDS ORDERED: COLLOIDAL OATMEAL 1 BAR EACH TP PRN (10:02)
[2023-06-11] MEDS: NICOTINE 14 MG/24 HOURS TOPICAL PATCH TD SCH (10:18)
[2023-06-11] MEDS: PRENATAL VITAMINS W/ FOLIC ACID TABLET (FP) PO SCH (10:18)
[2023-06-11 12:12] LABS: HEMATOCRIT 26.9 % (32.4-45.2); HEMOGLOBIN 8.1 GM/dL (10.7-15.3); MCH 20.6 pg (25.7-33.7); MCHC 30.1 g/dl (32.0-36.0); MEAN CELL VOLUME 68.5 fl (80-96); MEAN PLT VOLUME 8.4 fl (7.5-11.1); PLATELET COUNT 222 10^3/uL (134-434); RBC 3.93 M/mm3 (3.60-5.2); RDW 20.2 % (11.6-15.6); WHITE BLOOD COUNT 5.9 K/mm3 (4.0-10.0)
[2023-06-11] MEDS: METHOCARBAMOL 750 MG TABLET PO PRN ×2 (12:22→18:05)
[2023-06-11 13:13] LABS: POTASSIUM 4.2 mmol/L (3.5-5.1)
[2023-06-11 13:24] LABS: BLOOD UREA NITROGEN 13.1 mg/dL (7-18); CALCIUM 8.1 mg/dL (8.5-10.1); CREATININE 0.9 mg/dL (0.55-1.3)
[2023-06-11 13:27] LABS: ALBUMIN 3.1 g/dl (3.4-5.0); BILIRUBIN,TOTAL 0.3 mg/dL (0.2-1); TOT PROT 6.8 g/dl (6.4-8.2)
[2023-06-11] MEDS: hydrOXYzine PAMOATE 25 MG CAPSULE (FP) PO PRN (14:10)
[2023-06-11] MEDS: ALBUTEROL SO4 HFA INHALER IH PRN (18:06)
[2023-06-11] MEDS: MINERAL OIL/PET HY-PHL TOPICAL OINTMENT 454 GM JAR TP SCH (22:18)
[2023-06-11] MEDS: MOMETASONE FUROATE 110 MCG/IH INHALER IH SCH (22:18)
[2023-06-11] MEDS: amLODIPine BESYLATE 5 MG TABLET (FP) PO SCH (22:19)
[2023-06-11] MEDS: DOCUSATE SODIUM 100 MG CAPSULE (FP) PO SCH (22:20)
[2023-06-11] MEDS: THIAMINE HCL 100 MG TABLET (FP) PO SCH (22:20)
[2023-06-11] MEDS: SUVOREXANT 10 MG TABLET PO PRN (22:22)
[2023-06-12] MEDS: chlordiazePOXIDE HCL 25 MG CAPSULE PO SCH ×4 (06:00→22:29)
[2023-06-12] MEDS: FUROSEMIDE 20 MG TABLET (FP) PO SCH ×2 (06:07→13:31)
[2023-06-12] MEDS: hydrOXYzine PAMOATE 25 MG CAPSULE (FP) PO PRN ×2 (08:31→17:48)
[2023-06-12] MEDS: METHOCARBAMOL 750 MG TABLET PO PRN (08:31)
[2023-06-12] MEDS: MINERAL OIL/PET HY-PHL TOPICAL OINTMENT 454 GM JAR TP SCH ×2 (10:19→22:31)
[2023-06-12] MEDS: MOMETASONE FUROATE 110 MCG/IH INHALER IH SCH ×2 (10:20→22:30)
[2023-06-12] MEDS: NICOTINE 14 MG/24 HOURS TOPICAL PATCH TD SCH (10:20)
[2023-06-12] MEDS: PRENATAL VITAMINS W/ FOLIC ACID TABLET (FP) PO SCH (10:20)
[2023-06-12] MEDS: DOCUSATE SODIUM 100 MG CAPSULE (FP) PO SCH ×2 (10:20→22:30)
[2023-06-12] MEDS ORDERED: SUMAtriptan SUCCINATE 25 MG TABLET PO ONE (13:45)
[2023-06-12] MEDS: NICOTINE POLACRILEX 2 MG GUM BUC PRN ×2 (15:11→17:48)
[2023-06-12] MEDS ORDERED: SUMAtriptan SUCCINATE 25 MG TABLET PO PRN (15:45)
[2023-06-12] MEDS ORDERED: diphenhydrAMINE HCL 25 MG CAPSULE (FP) PO ONE (21:09)
[2023-06-12] MEDS: ALBUTEROL SO4 HFA INHALER IH PRN (22:28)
[2023-06-12] MEDS: amLODIPine BESYLATE 5 MG TABLET (FP) PO SCH (22:30)
[2023-06-12] MEDS: THIAMINE HCL 100 MG TABLET (FP) PO SCH (22:30)
[2023-06-12] MEDS: SUVOREXANT 10 MG TABLET PO PRN (22:32)
[2023-06-13] MEDS ORDERED: chlordiazePOXIDE HCL 10 MG CAPSULE PO PRN
[2023-06-13] MEDS: chlordiazePOXIDE HCL 10 MG CAPSULE PO SCH ×6 (05:27→22:38)
[2023-06-13] MEDS: METHOCARBAMOL 750 MG TABLET PO PRN (05:27)
[2023-06-13] MEDS: FUROSEMIDE 20 MG TABLET (FP) PO SCH ×2 (05:27→13:42)
[2023-06-13] MEDS: DOCUSATE SODIUM 100 MG CAPSULE (FP) PO SCH ×2 (10:18→22:36)
[2023-06-13] MEDS: PRENATAL VITAMINS W/ FOLIC ACID TABLET (FP) PO SCH (10:19)
[2023-06-13] MEDS: NICOTINE 14 MG/24 HOURS TOPICAL PATCH TD SCH (10:20)
[2023-06-13] MEDS: ALBUTEROL SO4 HFA INHALER IH PRN (10:20)
[2023-06-13] MEDS: MINERAL OIL/PET HY-PHL TOPICAL OINTMENT 454 GM JAR TP SCH ×2 (10:21→22:36)
[2023-06-13] MEDS: MOMETASONE FUROATE 110 MCG/IH INHALER IH SCH ×2 (10:21→22:36)
[2023-06-13] MEDS: hydrOXYzine PAMOATE 25 MG CAPSULE (FP) PO PRN (13:44)
[2023-06-13] MEDS ORDERED: DICYCLOMINE HCL 10 MG CAPSULE PO PRN (17:44)
[2023-06-13] MEDS ORDERED: SIMETHICONE 80 MG TAB.CHEW (FP) PO PRN (17:45)
[2023-06-13] MEDS ORDERED: BISACODYL 5 MG TABLET.DR (FP) PO ONE (19:05)
[2023-06-13] MEDS ORDERED: LACTULOSE 20 GM/30 ML UDC (FOR ORAL USE ONLY) PO ONE (19:46)
[2023-06-13 21:07] VITALS: TEMP 97.7
[2023-06-13] MEDS: amLODIPine BESYLATE 5 MG TABLET (FP) PO SCH (22:36)
[2023-06-13] MEDS: THIAMINE HCL 100 MG TABLET (FP) PO SCH (22:36)
[2023-06-13] MEDS: SUVOREXANT 10 MG TABLET PO PRN (22:38)
[2023-06-14] MEDS ORDERED: chlordiazePOXIDE HCL 10 MG CAPSULE PO SCH (05:00)
[2023-06-14] MEDS: FUROSEMIDE 20 MG TABLET (FP) PO SCH (05:59)
[2023-06-14 06:54] VITALS: BP 107/62; PULSE 78; RESP 17
[2023-06-14] MEDS: MOMETASONE FUROATE 110 MCG/IH INHALER IH SCH (09:47)
[2023-06-14] MEDS: MINERAL OIL/PET HY-PHL TOPICAL OINTMENT 454 GM JAR TP SCH (09:47)
[2023-06-14] MEDS: DOCUSATE SODIUM 100 MG CAPSULE (FP) PO SCH (09:47)
[2023-06-14] MEDS: hydrOXYzine PAMOATE 25 MG CAPSULE (FP) PO PRN (09:48)
[2023-06-14] MEDS: NICOTINE 14 MG/24 HOURS TOPICAL PATCH TD SCH (09:48)
[2023-06-14] MEDS: PRENATAL VITAMINS W/ FOLIC ACID TABLET (FP) PO SCH (09:48)
[2023-06-15] MEDS ORDERED: chlordiazePOXIDE HCL 10 MG CAPSULE PO ONE (05:00)
== END 2023-06-14 09:52 | disposition other institution (70) | DRG 774 ==
LOC: YASAS 13:32 → Y3N 16:51
PROVIDERS: ADMIT Allergy & Immunology; ATTEND Surgery
PROC: HZ2ZZZZ Detoxification Services for Substance Abuse Treatment (ICD-10-PCS; principal; 2023-06-10)
DX: F10.230 Alcohol dependence with withdrawal, uncomplicated (principal); F14.20 Cocaine dependence, uncomplicated; F12.20 Cannabis dependence, uncomplicated; F17.210 Nicotine dependence, cigarettes, uncomplicated; F19.282 Other psychoactive substance dependence with psychoactive substance-induced sleep disorder; F19.24 Other psychoactive substance dependence with psychoactive substance-induced mood disorder; D64.9 Anemia, unspecified; K59.00 Constipation, unspecified; Z86.79 Personal history of other diseases of the circulatory system; Z85.3 Personal history of malignant neoplasm of breast; Z91.410 Personal history of adult physical and sexual abuse; Z88.0 Allergy status to penicillin; Z88.8 Allergy status to other drugs, medicaments and biological substances
CPT/HCPCS: 36415; 80053; 81025; 85027; 86780; 87635; 93005; 93010

== ENCOUNTER 2023-07-14 12:53 | Inpatient (IN) | payer OTHER ==
[2023-07-14 13:37] VITALS: BMI 35.2
[2023-07-14] MEDS ORDERED: chlordiazePOXIDE HCL 25 MG CAPSULE PO PRN (15:30)
[2023-07-14] MEDS ORDERED: NALOXONE HCL 0.4 MG/ML VIAL IM PRN (15:39)
[2023-07-14] MEDS ORDERED: NALOXONE HCL (KLOXXADO) 8 MG SPRAY NS PRN (15:39)
[2023-07-14] MEDS ORDERED: guaiFENesin 600 MG TABLET.ER (FP) PO PRN (15:39)
[2023-07-14] MEDS ORDERED: MAGNESIUM HYDROX 2400MG/30ML ORAL SUSPENSION 30 ML CUP PO PRN (15:39)
[2023-07-14] MEDS ORDERED: POLYETHYLENE GLYCOL (HEALTHYLAX) 3350 17 GM PACKET PO PRN (15:39)
[2023-07-14] MEDS ORDERED: BENZONATATE 200 MG CAPSULE PO PRN (15:39)
[2023-07-14] MEDS ORDERED: MAG HYDROX/AL HYDROX/SIMETH 30 ML UNIT-DOSE CUP PO PRN (15:39)
[2023-07-14] MEDS ORDERED: LOPERAMIDE HCL 2 MG CAPSULE PO PRN (15:39)
[2023-07-14] MEDS ORDERED: BENZOCAINE/MENTHOL (CHLORASEPTIC ) LOZENGE MM PRN (15:39)
[2023-07-14] MEDS ORDERED: ALBUTEROL SO4 HFA INHALER IH PRN (15:46)
[2023-07-14] MEDS ORDERED: chlordiazePOXIDE HCL 25 MG CAPSULE ONE (16:13)
[2023-07-14] MEDS: chlordiazePOXIDE HCL 25 MG CAPSULE PO SCH ×2 (16:20→22:40)
[2023-07-14] MEDS: METHOCARBAMOL 500 MG TABLET PO PRN (17:20)
[2023-07-14] MEDS: hydrOXYzine PAMOATE 25 MG CAPSULE (FP) PO PRN (22:40)
[2023-07-14] MEDS: THIAMINE HCL 100 MG TABLET (FP) PO SCH (22:40)
[2023-07-14] MEDS: MELATONIN 5 MG TABLETS PO SCH (22:40)
[2023-07-14] MEDS: COLLOIDAL OATMEAL 1 BAR EACH TP PRN (22:56)
[2023-07-15] MEDS: FUROSEMIDE 40 MG TABLET (FP) PO SCH ×2 (05:55→13:13)
[2023-07-15] MEDS: chlordiazePOXIDE HCL 25 MG CAPSULE PO SCH ×4 (05:55→22:27)
[2023-07-15] MEDS: METHOCARBAMOL 500 MG TABLET PO PRN ×2 (08:43→22:27)
[2023-07-15] MEDS: PRENATAL VITAMINS W/ FOLIC ACID TABLET (FP) PO SCH (10:05)
[2023-07-15] MEDS: hydrOXYzine PAMOATE 25 MG CAPSULE (FP) PO PRN ×2 (10:07→22:27)
[2023-07-15] MEDS: MINERAL OIL/PETROLAT/WATER TOPICAL CREAM 113 GM JAR TP SCH (11:24)
[2023-07-15 11:53] LABS: CHLORIDE 106 mmol/L (98-107); POTASSIUM 4.1 mmol/L (3.5-5.1); SODIUM 139 mmol/L (136-145)
[2023-07-15 11:56] LABS: BLOOD UREA NITROGEN 10.8 mg/dL (7-18)
[2023-07-15 11:58] LABS: ALBUMIN 3.3 g/dl (3.4-5.0); ANION GAP 6 mmol/L (4-13); CALCIUM 8.1 mg/dL (8.5-10.1); CO2 27 mmol/L (21-32); GLUCOSE,RANDOM 97 mg/dL (74-106)
[2023-07-15 11:59] LABS: HEMATOCRIT 25.3 % (32.4-45.2); HEMOGLOBIN 7.9 GM/dL (10.7-15.3); MCH 20.3 pg (25.7-33.7); MCHC 31.2 g/dl (32.0-36.0); MEAN CELL VOLUME 65.2 fl (80-96); MEAN PLT VOLUME 8.6 fl (7.5-11.1); PLATELET COUNT 203 10^3/uL (134-434); RBC 3.88 M/mm3 (3.60-5.2); RDW 20.1 % (11.6-15.6); WHITE BLOOD COUNT 7.6 K/mm3 (4.0-10.0)
[2023-07-15 12:01] LABS: CREATININE 0.9 mg/dL (0.55-1.3); SGOT/AST 40 U/L (15-37); SGPT/ALT 31 U/L (13-61)
[2023-07-15 12:03] LABS: BILIRUBIN,TOTAL 0.7 mg/dL (0.2-1); TOT PROT 7.2 g/dl (6.4-8.2)
[2023-07-15 12:04] LABS: ALK PHOS 91 U/L (45-117)
[2023-07-15] MEDS: MELATONIN 5 MG TABLETS PO SCH (22:27)
[2023-07-15] MEDS: THIAMINE HCL 100 MG TABLET (FP) PO SCH (22:27)
[2023-07-16] MEDS: chlordiazePOXIDE HCL 25 MG CAPSULE PO SCH ×4 (06:00→22:38)
[2023-07-16] MEDS: FUROSEMIDE 40 MG TABLET (FP) PO SCH ×2 (06:13→13:04)
[2023-07-16] MEDS: MINERAL OIL/PETROLAT/WATER TOPICAL CREAM 113 GM JAR TP SCH (10:04)
[2023-07-16] MEDS: PRENATAL VITAMINS W/ FOLIC ACID TABLET (FP) PO SCH (10:04)
[2023-07-16] MEDS: FERROUS SO4 325 MG TABLET (FP) PO SCH (10:04)
[2023-07-16] MEDS: NICOTINE 21 MG/24 HOURS TOPICAL PATCH TD SCH (14:37)
[2023-07-16] MEDS: hydrOXYzine PAMOATE 25 MG CAPSULE (FP) PO PRN (14:42)
[2023-07-16] MEDS: ONDANSETRON *ODT* 4 MG TABLET SL PRN (17:18)
[2023-07-16] MEDS: METHOCARBAMOL 500 MG TABLET PO PRN (17:20)
[2023-07-16] MEDS: BISMUTH SUBSALICYLATE 524 MG/30 ML PO PRN (18:09)
[2023-07-16] MEDS: MELATONIN 5 MG TABLETS PO SCH (22:31)
[2023-07-16] MEDS: traZODone HCL 100 MG TABLET (FP) PO SCH (22:31)
[2023-07-16] MEDS: THIAMINE HCL 100 MG TABLET (FP) PO SCH (22:31)
[2023-07-16] MEDS: NICOTINE POLACRILEX 4 MG GUM BUC PRN (22:33)
[2023-07-17] MEDS ORDERED: chlordiazePOXIDE HCL 10 MG CAPSULE PO PRN
[2023-07-17] MEDS: FUROSEMIDE 40 MG TABLET (FP) PO SCH ×2 (05:55→13:28)
[2023-07-17] MEDS: chlordiazePOXIDE HCL 10 MG CAPSULE PO SCH ×4 (05:55→22:32)
[2023-07-17] MEDS: METHOCARBAMOL 500 MG TABLET PO PRN (06:17)
[2023-07-17] MEDS: hydrOXYzine PAMOATE 25 MG CAPSULE (FP) PO PRN (06:18)
[2023-07-17] MEDS: PRENATAL VITAMINS W/ FOLIC ACID TABLET (FP) PO SCH (10:04)
[2023-07-17] MEDS: MINERAL OIL/PETROLAT/WATER TOPICAL CREAM 113 GM JAR TP SCH (10:04)
[2023-07-17] MEDS: FERROUS SO4 325 MG TABLET (FP) PO SCH (10:04)
[2023-07-17] MEDS: NICOTINE 21 MG/24 HOURS TOPICAL PATCH TD SCH (10:05)
[2023-07-17] MEDS: NICOTINE POLACRILEX 4 MG GUM BUC PRN (10:08)
[2023-07-17 11:31] LABS: HEMATOCRIT 27.6 % (32.4-45.2); HEMOGLOBIN 8.2 GM/dL (10.7-15.3); MCHC 29.8 g/dl (32.0-36.0); MEAN CELL VOLUME 67.1 fl (80-96); MEAN PLT VOLUME 8.7 fl (7.5-11.1); PLATELET COUNT 228 10^3/uL (134-434); RBC 4.11 M/mm3 (3.60-5.2); RDW 20.6 % (11.6-15.6); WHITE BLOOD COUNT 8.3 K/mm3 (4.0-10.0)
[2023-07-17] MEDS: ONDANSETRON *ODT* 4 MG TABLET SL PRN (15:03)
[2023-07-17] MEDS: DICYCLOMINE HCL 10 MG CAPSULE PO PRN (15:03)
[2023-07-17] MEDS: traZODone HCL 100 MG TABLET (FP) PO SCH (22:32)
[2023-07-17] MEDS: THIAMINE HCL 100 MG TABLET (FP) PO SCH (22:32)
[2023-07-17] MEDS: MELATONIN 5 MG TABLETS PO SCH (22:32)
[2023-07-18] MEDS: chlordiazePOXIDE HCL 10 MG CAPSULE PO SCH ×3 (05:35→17:10)
[2023-07-18] MEDS: FUROSEMIDE 40 MG TABLET (FP) PO SCH ×3 (05:35→13:17)
[2023-07-18] MEDS: MINERAL OIL/PETROLAT/WATER TOPICAL CREAM 113 GM JAR TP SCH (10:03)
[2023-07-18] MEDS: PRENATAL VITAMINS W/ FOLIC ACID TABLET (FP) PO SCH (10:04)
[2023-07-18] MEDS: FERROUS SO4 325 MG TABLET (FP) PO SCH (10:04)
[2023-07-18] MEDS: NICOTINE 21 MG/24 HOURS TOPICAL PATCH TD SCH (10:04)
[2023-07-18] MEDS: BISMUTH SUBSALICYLATE 524 MG/30 ML PO PRN ×2 (10:06→17:11)
[2023-07-18] MEDS: hydrOXYzine PAMOATE 25 MG CAPSULE (FP) PO PRN (10:07)
[2023-07-18] MEDS: METHOCARBAMOL 500 MG TABLET PO PRN (10:07)
[2023-07-18] MEDS: NICOTINE POLACRILEX 4 MG GUM BUC PRN ×2 (10:08→17:13)
[2023-07-18] MEDS: MELATONIN 5 MG TABLETS PO SCH (22:26)
[2023-07-18] MEDS: THIAMINE HCL 100 MG TABLET (FP) PO SCH (22:26)
[2023-07-18] MEDS: traZODone HCL 100 MG TABLET (FP) PO SCH (22:26)
[2023-07-18] MEDS: COLLOIDAL OATMEAL 1 BAR EACH TP PRN (22:26)
[2023-07-19] MEDS ORDERED: chlordiazePOXIDE HCL 10 MG CAPSULE PO ONE (05:00)
[2023-07-19] MEDS: FUROSEMIDE 40 MG TABLET (FP) PO SCH (06:55)
[2023-07-19] MEDS: DICYCLOMINE HCL 10 MG CAPSULE PO PRN (07:24)
[2023-07-19 09:02] VITALS: BP 110/58; PULSE 78; RESP 18; TEMP 97.9
[2023-07-19] MEDS: MINERAL OIL/PETROLAT/WATER TOPICAL CREAM 113 GM JAR TP SCH (09:37)
[2023-07-19] MEDS: NICOTINE 21 MG/24 HOURS TOPICAL PATCH TD SCH (09:37)
[2023-07-19] MEDS: FERROUS SO4 325 MG TABLET (FP) PO SCH (09:37)
[2023-07-19] MEDS: PRENATAL VITAMINS W/ FOLIC ACID TABLET (FP) PO SCH (09:37)
[2023-07-19] MEDS: hydrOXYzine PAMOATE 25 MG CAPSULE (FP) PO PRN (10:40)
== END 2023-07-19 12:25 | disposition other institution (70) | DRG 775 ==
LOC: YASAS 12:53 → SUATTDRO 12:53 → Y3N 15:59
PROVIDERS: ADMIT Allergy & Immunology; ATTEND Surgery
PROC: HZ2ZZZZ Detoxification Services for Substance Abuse Treatment (ICD-10-PCS; principal; 2023-07-14)
DX: F10.230 Alcohol dependence with withdrawal, uncomplicated (principal); F12.20 Cannabis dependence, uncomplicated; F17.210 Nicotine dependence, cigarettes, uncomplicated; F25.9 Schizoaffective disorder, unspecified; F19.24 Other psychoactive substance dependence with psychoactive substance-induced mood disorder; D64.9 Anemia, unspecified; G47.00 Insomnia, unspecified; I50.9 Heart failure, unspecified; J45.20 Mild intermittent asthma, uncomplicated; E66.9 Obesity, unspecified; Z68.35 Body mass index [BMI] 35.0-35.9, adult; Z86.59 Personal history of other mental and behavioral disorders; Z88.6 Allergy status to analgesic agent; Z88.0 Allergy status to penicillin
CPT/HCPCS: 36415; 80053; 80305; 80307; 81025; 85027; 86780; 87635; 87811; Q0162

== ENCOUNTER 2024-06-13 16:16 | Inpatient (IN) | payer OTHER ==
[2024-06-13 19:19] VITALS: BMI 36.6
[2024-06-13] MEDS ORDERED: ALBUTEROL SO4 2.5/IPRATROPIUM 0.5 INH SOL 3 ML VIAL.NEB. NEB ONE (20:07)
[2024-06-13] MEDS: ALBUTEROL SO4 2.5/IPRATROPIUM 0.5 INH SOL 3 ML VIAL.NEB. NEB ONE (23:45)
[2024-06-13] MEDS ORDERED: DICYCLOMINE HCL 10 MG CAPSULE PO PRN (23:56)
[2024-06-13] MEDS ORDERED: MAG HYDROX/AL HYDROX/SIMETH 30 ML UNIT-DOSE CUP PO PRN (23:56)
[2024-06-13] MEDS ORDERED: POLYETHYLENE GLYCOL (HEALTHYLAX) 3350 17 GM PACKET PO PRN (23:56)
[2024-06-13] MEDS ORDERED: guaiFENesin 600 MG TABLET.ER (FP) PO PRN (23:56)
[2024-06-13] MEDS ORDERED: BENZONATATE 200 MG CAPSULE PO PRN (23:56)
[2024-06-13] MEDS ORDERED: LOPERAMIDE HCL 2 MG CAPSULE PO PRN (23:56)
[2024-06-13] MEDS ORDERED: NALOXONE (NARCAN) HCL 4 MG/0.1 ML SPRAY NS PRN (23:56)
[2024-06-13] MEDS ORDERED: MAGNESIUM HYDROX 2400MG/30ML ORAL SUSPENSION 30 ML CUP PO PRN (23:56)
[2024-06-13] MEDS ORDERED: ONDANSETRON *ODT* 4 MG TABLET SL PRN (23:56)
[2024-06-14] MEDS ORDERED: chlordiazePOXIDE HCL 25 MG CAPSULE PO PRN (00:01)
[2024-06-14] MEDS: NALOXONE (NYS OPIOID OVERDOSE PROGRAM) 4 MG/0.1 ML SPRAY NS ONE (01:05)
[2024-06-14] MEDS ORDERED: ALBUTEROL SO4 HFA INHALER IH ONE (01:33)
[2024-06-14] MEDS: hydrOXYzine PAMOATE 25 MG CAPSULE (FP) PO PRN (02:04)
[2024-06-14] MEDS: chlordiazePOXIDE HCL 25 MG CAPSULE PO SCH (05:26)
[2024-06-14 10:19] LABS: HEMOGLOBIN 8.9 GM/dL (10.7-15.3); MCH 23.7 pg (25.7-33.7); MCHC 30.8 g/dl (32.0-36.0); MEAN CELL VOLUME 77.2 fl (80-96); MEAN PLT VOLUME 8.1 fl (7.5-11.1); PLATELET COUNT 243 10^3/uL (134-434); RBC 3.76 M/mm3 (3.60-5.2); RDW 19.1 % (11.6-15.6); WHITE BLOOD COUNT 11.4 K/mm3 (4.0-10.0)
[2024-06-14] MEDS: PRENATAL VITAMINS W/ FOLIC ACID TABLET (FP) PO SCH (10:25)
[2024-06-14] MEDS: NICOTINE 21 MG/24 HOURS TOPICAL PATCH TD SCH (10:29)
[2024-06-14] MEDS: NICOTINE POLACRILEX 2 MG GUM BUC PRN (10:31)
[2024-06-14 11:09] LABS: CHLORIDE 107 mmol/L (98-107); POTASSIUM 4.2 mmol/L (3.5-5.1); SODIUM 138 mmol/L (136-145)
[2024-06-14 11:12] LABS: CALCIUM 8.4 mg/dL (8.5-10.1)
[2024-06-14 11:13] LABS: ANION GAP 5 mmol/L (4-13); BLOOD UREA NITROGEN 6.5 mg/dL (7-18); CO2 26 mmol/L (21-32); GLUCOSE,RANDOM 91 mg/dL (74-106)
[2024-06-14 11:16] LABS: CREATININE 0.7 mg/dL (0.55-1.3); SGOT/AST 34 U/L (15-37); SGPT/ALT 37 U/L (13-61)
[2024-06-14 11:17] LABS: BILIRUBIN,TOTAL 0.5 mg/dL (0.2-1); TOT PROT 6.5 g/dl (6.4-8.2)
[2024-06-14 11:19] LABS: ALK PHOS 89 U/L (45-117)
[2024-06-14] MEDS: FERROUS SO4 325 MG TABLET (FP) PO SCH (11:26)
[2024-06-14] MEDS: CEPHALEXIN MONOHYDRATE 500 MG CAPSULE (UD) PO SCH (11:57)
[2024-06-14] MEDS: levoFLOXacin 750 MG TABLET PO SCH (14:55)
[2024-06-14] MEDS: BENZOCAINE/MENTHOL (CHLORASEPTIC ) LOZENGE MM PRN (17:43)
[2024-06-14] MEDS: GABAPENTIN 100 MG CAPSULE PO PRN (19:53)
[2024-06-14] MEDS ORDERED: FUROSEMIDE 20 MG TABLET (FP) PO SCH (22:00)
[2024-06-14] MEDS ORDERED: MELATONIN 5 MG TABLETS PO SCH (22:00)
[2024-06-14] MEDS: SUVOREXANT 10 MG TABLET PO PRN (22:39)
[2024-06-14] MEDS: MOMETASONE FUROATE 110 MCG/IH INHALER IH SCH (22:39)
[2024-06-14] MEDS: THIAMINE 100 MG TABLET PO SCH (22:40)
[2024-06-14] MEDS: ALBUTEROL SO4 HFA INHALER IH PRN (22:52)
[2024-06-15] MEDS: FUROSEMIDE 20 MG TABLET (FP) PO SCH (06:00)
[2024-06-15] MEDS: chlordiazePOXIDE HCL 25 MG CAPSULE PO SCH (06:00)
[2024-06-15] MEDS: levoFLOXacin 500 MG, levoFLOXacin 250 MG PO SCH (10:12)
[2024-06-15] MEDS ORDERED: NALOXONE (NYS OPIOID OVERDOSE PROGRAM) 4 MG/0.1 ML SPRAY NS PRN (12:07)
[2024-06-16] MEDS: chlordiazePOXIDE HCL 10 MG CAPSULE PO SCH (05:06)
[2024-06-16] MEDS: FUROSEMIDE 40 MG TABLET (FP) PO SCH (10:39)
[2024-06-16] MEDS: chlordiazePOXIDE HCL 10 MG CAPSULE PO PRN (19:58)
[2024-06-17] MEDS: chlordiazePOXIDE HCL 10 MG CAPSULE PO SCH (05:55)
[2024-06-17] MEDS: chlordiazePOXIDE HCL 10 MG CAPSULE PO PRN (11:43)
[2024-06-17] MEDS: PANTOPRAZOLE 20 MG TABLET PO SCH (11:53)
[2024-06-17] MEDS: GABAPENTIN 100 MG CAPSULE PO SCH (11:53)
[2024-06-17 14:29] LABS: IRON SERUM 23 ug/dL (50-175)
[2024-06-17 14:30] LABS: TOTAL IRON BINDING CAPACITY 462 ug/dL (250-450)
[2024-06-17] MEDS: FUROSEMIDE 40 MG TABLET (FP) PO SCH (22:50)
[2024-06-17] MEDS: MELATONIN 5 MG TABLETS PO SCH (22:50)
[2024-06-17] MEDS: traZODone HCL 50 MG TABLET (FP) PO SCH (22:50)
[2024-06-17] MEDS: ATORVASTATIN CA 40 MG TABLET (FP) PO SCH (22:50)
[2024-06-18] MEDS: chlordiazePOXIDE HCL 10 MG CAPSULE PO ONE (05:45)
[2024-06-18 07:01] VITALS: BP 95/45; PULSE 68; RESP 16; TEMP 97.7
== END 2024-06-18 11:20 | disposition home or self-care (01) | DRG 774 ==
LOC: YASAS 16:16 → Y6N 06-14 01:39
PROVIDERS: ADMIT Allergy & Immunology; ATTEND Allergy & Immunology
PROC: HZ2ZZZZ Detoxification Services for Substance Abuse Treatment (ICD-10-PCS; principal; 2024-06-14)
DX: F10.230 Alcohol dependence with withdrawal, uncomplicated (principal); F14.20 Cocaine dependence, uncomplicated; F12.20 Cannabis dependence, uncomplicated; F32.A Depression, unspecified; F17.210 Nicotine dependence, cigarettes, uncomplicated; D50.9 Iron deficiency anemia, unspecified; E78.5 Hyperlipidemia, unspecified; I11.0 Hypertensive heart disease with heart failure; I50.9 Heart failure, unspecified; J45.20 Mild intermittent asthma, uncomplicated; K21.9 Gastro-esophageal reflux disease without esophagitis; Z88.0 Allergy status to penicillin; Z88.8 Allergy status to other drugs, medicaments and biological substances
CPT/HCPCS: 36415; 80053; 80305; 80307; 81025; 82607; 82728; 82747; 83540; 83550; 85014; 85027; 86780; 93005; 93010; 94640

== ENCOUNTER 2024-10-26 08:59 | Emergency (ER) | payer OTHER ==
[2024-10-26 09:12] VITALS: BMI 38.2
[2024-10-26] MEDS ORDERED: diazePAM 5 MG TABLET ONE (09:41)
[2024-10-26] MEDS: diazePAM 5 MG TABLET PO ONE (09:44)
[2024-10-26 10:06] LABS: INR 0.99 (0.83-1.09); PROTHROMBIN TIME (PATIENT) 10.9 SEC (9.7-13.0)
[2024-10-26 10:09] LABS: ACTIVATED PTT 29.5 SECONDS (25.2-36.5)
[2024-10-26 10:10] LABS: BASO % 0.5 % (0-2.0); EOS % 1.4 % (0-4.5); HEMATOCRIT 31.9 % (32.4-45.2); LYMPH % 13.6 % (8-40); MCH 22.7 pg (25.7-33.7); MCHC 31.3 g/dl (32.0-36.0); MEAN CELL VOLUME 72.3 fl (80-96); MEAN PLT VOLUME 7.4 fl (7.5-11.1); MONO % 10.7 % (3.8-10.2); NEUT % 73.8 % (42.8-82.8); PLATELET COUNT 302 10^3/uL (134-434); RBC 4.42 M/mm3 (3.60-5.2); RDW 21.4 % (11.6-15.6); WHITE BLOOD COUNT 9.9 K/mm3 (4.0-10.0)
[2024-10-26 10:17] LABS: POTASSIUM 5.8 mmol/L (3.5-5.1)
[2024-10-26 10:19] LABS: CALCIUM 8.6 mg/dL (8.5-10.1)
[2024-10-26 10:20] LABS: ALBUMIN 3.1 g/dl (3.4-5.0); BLOOD UREA NITROGEN 9.1 mg/dL (7-18); MAGNESIUM 2.1 mg/dL (1.8-2.4)
[2024-10-26 10:23] LABS: CREATININE 0.9 mg/dL (0.55-1.3)
[2024-10-26 10:24] LABS: TOT PROT 7.5 g/dl (6.4-8.2)
[2024-10-26 10:27] LABS: N-TERMINAL BNP 192.6 pg/ml (5-125)
[2024-10-26 10:34] LABS: BILIRUBIN,TOTAL 0.4 mg/dL (0.2-1)
[2024-10-26] MEDS ORDERED: oxyCODONE HCL 5 MG TABLET ONE (10:57)
[2024-10-26] MEDS ORDERED: DEXAMETHASONE SOD PHOSPHATE 10 MG/1 ML VIAL ONE (10:57)
[2024-10-26] MEDS: oxyCODONE HCL 5 MG TABLET PO ONE (11:03)
[2024-10-26] MEDS: DEXAMETHASONE LIQUID 0.5 MG/5 ML PO ONE (11:04)
[2024-10-26] MEDS: DEXAMETHASONE SOD PHOSPHATE 10 MG/1 ML VIAL PO ONE (11:04)
[2024-10-26 12:06] VITALS: BP 133/74; PULSE 59; RESP 20; TEMP 98
== END 2024-10-26 12:06 | disposition home or self-care (01) ==
LOC: JER 08:59
DX: M79.10 Myalgia, unspecified site (principal); R07.9 Chest pain, unspecified; M54.9 Dorsalgia, unspecified; R07.0 Pain in throat; Z20.822 Contact with and (suspected) exposure to COVID-19
CPT/HCPCS: 0241U-QW; 36415; 71046-TC-FY; 80053; 83735; 83880; 84484; 85025; 85610; 85730; 93005; 93010; 99285-25; J1100